=== PATIENT | male | born 1945 | race Caucasian/White ===

== ENCOUNTER 2024-03-15 13:00 | Inpatient (IN) | payer MEDICARE ==
[2024-03-15 14:08] LABS: ALT 16 U/L (4-49); AST 18 U/L (17-59); African American GFR (CKD) 4 (>60 ml/min/1.73 sqM); Albumin 3.6 g/dL (3.5-5.0); Alkaline Phosphatase 97 U/L (38-126); Anion Gap 20 mmol/L; Calcium 9.7 mg/dL (8.4-10.2); Carbon Dioxide 15 mmol/L (22-30); Chloride 103 mmol/L (98-107); Glucose 114 mg/dL (74-99); Magnesium 2.3 mg/dL (1.6-2.3); Non-African American GFR(CKD) 3 (>60 ml/min/1.73 sqM); Sodium 138 mmol/L (137-145); Total Bilirubin 0.7 mg/dL (0.2-1.3); Total Protein 6.2 g/dL (6.3-8.2)
[2024-03-15 14:14] LABS: Amorphous Sediment,Urine Rare /hpf; Appearance,Urine Clear (Clear); Bacteria,Urine Rare /hpf; Basophils # (A) 0.1 k/uL (0-0.2); Basophils % (A) 1 %; Bilirubin,Urine Negative (Negative); Blood,Urine Large (Negative); Color,Urine Colorless; Eosinophils # (A) 0.2 k/uL (0-0.7); Eosinophils % (A) 2 %; Glucose,Urine (UA) Negative (Negative); HCT 40.7 % (39.0-53.0); HGB 13.5 gm/dL (13.0-17.5); Ketones,Urine 1+ (Negative); Leukocyte Esterase,Urine Moderate (Negative); Lymphocytes # (A) 2.2 k/uL (1.0-4.8); Lymphocytes % (A) 22 %; MCH 30.8 pg (25.0-35.0); MCHC 33.3 g/dL (31.0-37.0); MCV 92.4 fL (80.0-100.0); Mean Platelet Volume 8.6; Monocytes # (A) 0.4 k/uL (0-1.0); Monocytes % (A) 4 %; Neutrophils # (A) 6.9 k/uL (1.3-7.7); Neutrophils % (A) 71 %; Nitrite,Urine Negative (Negative); PH, Urine 5.5 (5.0-8.0); Platelet Count 189 k/uL (150-450); Protein,Urine Negative (Negative); RBC,Urine 106 /hpf (0-5); RDW 14.7 % (11.5-15.5); Specific Gravity,Urine 1.012 (1.001-1.035); Urobilinogen,Urine <2.0 mg/dL (<2.0); WBC 9.7 k/uL (3.8-10.6); WBC,Urine 20 /hpf (0-5)
--- NOTE | 2024-03-15 14:25 | ED ---
General Adult HPI - General Chief complaint: Shortness of Breath Stated complaint: SOB, urogenital Time Seen by Provider: 03/15/24 13:30 Source: patient, EMS, RN notes reviewed, old records reviewed Mode of arrival: EMS - History of Present Illness Initial comments: This is a 78-year-old male who was sent to us from detention because he was combative and they thought maybe he was short of breath. However 20 minutes prior to the paramedics arriving they placed a Foster catheter in him and he subsequently put out 1600 cc of urine and according to EMS he has been cooperative and comfortable and without complaint. When I went interviewed the patient he had no complaints whatsoever he denied abdominal pain he denied any chest pain or difficulty breathing he denied any headache he denied having any pain at all. Patient has dementia and he is history may not be all that accurate but there is no one else with the patient's so most of the history came from EMS. There was no reported history of any fever. - Related Data Home Medications Medication Instructions Recorded Confirmed Acetaminophen Tab [Tylenol Tab] 500 mg PO Q6H PRN 03/15/24 03/15/24 Calcium Carbonate/Vitamin D3 1 tab PO DAILY 03/15/24 03/15/24 [Calcium 600 mg-Vit D3 5 mcg (200 unit)] Citalopram Hydrobromide [CeleXA] 20 mg PO DAILY 03/15/24 03/15/24 Cyanocobalamin [Vitamin B-12] 500 mcg PO DAILY 03/15/24 03/15/24 Divalproex Sodium [Depakote] 125 mg PO BID 03/15/24 03/15/24 Folic Acid 0.8 mg PO DAILY 03/15/24 03/15/24 Ketotifen 0.025% Ophth Soln 1 drop BOTH EYES BID 03/15/24 03/15/24 [Zaditor] Levofloxacin [Levaquin] 750 mg PO DAILY 03/15/24 03/15/24 Loratadine 10 mg PO DAILY 03/15/24 03/15/24 Magnesium Hydroxide [Milk of 2,400 mg PO DIRECTED PRN 03/15/24 03/15/24 Magnesia] Melatonin 5 mg PO HS 03/15/24 03/15/24 Metoprolol Succinate (ER) [Toprol 25 mg PO DAILY 03/15/24 03/15/24 Xl] Multivitamins, Thera [Multivitamin 1 tab PO DAILY 03/15/24 03/15/24 (formulary)] Pantoprazole [Protonix] 40 mg PO DAILY 03/15/24 03/15/24 Promethazine HCl 12.5 mg PO Q6H PRN 03/15/24 03/15/24 Sodium Chloride 0.9% Irrigatio 1 dose IRRIGATION Q12H 03/15/24 03/15/24 [Saline 0.9% Irrigation Bottle] Tamsulosin [Flomax] 0.4 mg PO HS 03/15/24 03/15/24 busPIRone HCl [Buspar] 10 mg PO BID 03/15/24 03/15/24 lisinopriL [Zestril] 20 mg PO DAILY 03/15/24 03/15/24 metFORMIN HCL [metFORMIN HCL ER] 750 mg PO DAILY 03/15/24 03/15/24 predniSONE 50 mg PO DAILY 03/15/24 03/15/24 Allergies Allergy/AdvReac Type Severity Reaction Status Date / Time No Known Allergies Allergy Verified 03/15/24 14:47 Review of Systems ROS Statement: Those systems with pertinent positive or pertinent negative responses have been documented in the HPI. ROS Other: All systems not noted in ROS Statement are negative. Past Medical History Smoking Status: Current every day smoker, Former smoker Past Alcohol Use History: Rare Past Drug Use History: None Reported General Exam - General Exam Comments Initial Comments: GENERAL: Patient is well-developed and well-nourished. Patient is nontoxic and well- hydrated and is in no acute distress. ENT: Neck is soft and supple. No significant lymphadenopathy is noted. Oropharynx is clear. Moist mucous membranes. Neck has full range of motion without eliciting any pain. EYES: The sclera were anicteric and conjunctiva were pink and moist. Extraocular movements were intact and pupils were equal round and reactive to light. Eyelids were unremarkable. PULMONARY: Unlabored respirations. Good breath sounds bilaterally. No audible rales rhonchi or wheezing was noted. CARDIOVASCULAR: There is a regular rate and rhythm without any murmurs gallops or rubs. ABDOMEN: Soft and nontender with normal bowel sounds. SKIN: Skin is clear with no lesions or rashes and otherwise unremarkable. NEUROLOGIC: Patient is alert and oriented x 2. Cranial nerves II through XII are grossly intact. Motor and sensory are also intact. Normal speech, volume and content. Symmetrical smile. MUSCULOSKELETAL: Normal extremities with adequate strength and full range of motion. LYMPHATICS: No significant lymphadenopathy is noted PSYCHIATRIC: Normal psychiatric evaluation. Course Vital Signs 03/15/24 03/15/24 03/15/24 13:21 13:27 13:30 Temperature 97.9 F Pulse Rate 107 H Respiratory 20 Rate Blood Pressure 155/116 O2 Sat by Pulse 97 96 96 Oximetry 03/15/24 03/15/24 03/15/24 13:32 13:40 13:50 Temperature Pulse Rate Respiratory Rate Blood Pressure 148/106 148/106 O2 Sat by Pulse 94 L 73 L Oximetry 03/15/24 03/15/24 03/15/24 14:00 14:05 14:10 Temperature Pulse Rate Respiratory 20 Rate Blood Pressure 145/109 O2 Sat by Pulse 94 L 72 L Oximetry 03/15/24 03/15/24 03/15/24 14:20 15:00 15:10 Temperature Pulse Rate Respiratory Rate Blood Pressure 145/109 162/120 O2 Sat by Pulse 81 L Oximetry 03/15/24 03/15/24 15:20 15:30 Temperature Pulse Rate 105 H 102 H Respiratory 11 L 12 Rate Blood Pressure O2 Sat by Pulse 96 95 Oximetry Medical Decision Making - Medical Decision Making Was pt. sent in by a medical professional or institution (, [facility], BOILERS INSPECTOR, urgent care, hospital, or detention...) When possible be specific @ -No Did you speak to anyone other than the patient for history (EMS, parent, family, police, friend...)? What history was obtained from this source @ -No Did you review nursing and triage notes (agree or disagree)? Why? @ -I reviewed and agree with nursing and triage notes Were old charts reviewed (outside hosp., previous admission, EMS record, old EKG, old radiological studies, urgent care reports/EKG's, detention records)? Report findings @ -No old charts were reviewed Differential Diagnosis? @ -Differential Altered Mental Status: Hypoglycemia, DKA, hypercapnia, ETOH, overdose, CO poisoning, trauma, myxedema coma, HTN encephalopathy, infection, encephalitis, psychosis, intercranial hemorrhage, hepatic encephalopathy, meningitis, CVA, this is not meant to be an all-inclusive list EKG interpreted by me (3pts min.). @ -As above X-rays interpreted by me (1pt min.). @ -None done CT interpreted by me (1pt min.). @ -None done U/S interpreted by me (1pt. min.). @ -None done What testing was considered but not performed or refused? (CT, X-rays, U/S, labs)? Why? @ -None What meds were considered but not given or refused? Why? @ -None Did you discuss the management of the patient with other professionals ( professionals i.e. , PA, BOILERS INSPECTOR, lab, RT, psych nurse, socially responsible investment adviser, nick setter, teacher, records officer, high risk case manager)? Give summary @ -I spoke with Dr. Pennington he agreed to admit the patient Was smoking cessation discussed for >3mins.? @ -No Was critical care preformed (if so, how long)? @ -35 minutes Were there social determinants of health that impacted care today? How? (Homelessness, low income, unemployed, alcoholism, drug addiction, transportation, low edu. Level, literacy, decrease access to med. care, senior care, rehab)? @ -No Was there de-escalation of care discussed even if they declined (Discuss DNR or withdrawal of care, Hospice)? DNR status @ -No What co-morbidities impacted this encounter? (DM, HTN, Smoking, COPD, CAD, Cancer, CVA, ARF, Chemo, Hep., AIDS, mental health diagnosis, sleep apnea, morbid obesity)? @ -None Was patient admitted / discharged? Hospital course, mention meds given and route, prescriptions, significant lab abnormalities, going to OR and other pertinent info. @ -Patient was given sodium bicarb calcium chloride D50 insulin and Lokelma. Patient will be admitted to Dr. Mcknight nephrology will be consulted. Foster catheter was left in place and it continued to drain. Undiagnosed new problem with uncertain prognosis? @ -No Drug Therapy requiring intensive monitoring for toxicity (Heparin, Nitro, Insulin, Cardizem)? @ -No Were any procedures done? @ -No Diagnosis/symptom? @ -Urinary retention Acute, or Chronic, or Acute on Chronic? @ -Default Uncomplicated (without systemic symptoms) or Complicated (systemic symptoms)? @ -Cute complicated Side effects of treatment? @ -No Exacerbation, Progression, or Severe Exacerbation? @ -No Poses a threat to life or bodily function? How? (Chest pain, [place], [place], pneumonia, PE, COPD, DKA, ARF, appy, cholecystitis, CVA, Diverticulitis, Homicidal, Suicidal, threat to staff... and all critical care pts) @ -Yes there can be significant kidney damage and electrolyte abnormalities Diagnosis/symptom? @ -Hyperkalemia Acute, or Chronic, or Acute on Chronic? @ -Acute Uncomplicated (without systemic symptoms) or Complicated (systemic symptoms)? @ -Complicated Side effects of treatment? @ -None Exacerbation, Progression, or Severe Exacerbation] @ -No Poses a threat to life or bodily function? @ -This can cause arrhythmias and Diagnosis/symptom? @ -Acute renal failure Acute, or Chronic, or Acute on Chronic? @ -Default Uncomplicated (without systemic symptoms) or Complicated (systemic symptoms)? @ -Acute complicated Side effects of treatment? @ -None Exacerbation, Progression, or Severe Exacerbation] @ -No Poses a threat to life or bodily function? @ -Yes this can lead to arrhythmias secondary to electrolyte abnormalities - Lab Data Result diagrams: 03/15/24 13:43 03/15/24 13:43 Lab Results 03/15/24 03/15/24 03/15/24 Range/Units 13:43 13:43 13:43 WBC 9.7 (3.8-10.6) k/uL RBC 4.40 (4.30-5.90) m/uL Hgb 13.5 (13.0-17.5) gm/dL Hct 40.7 (39.0-53.0) % MCV 92.4 (80.0-100.0) fL MCH 30.8 (25.0-35.0) pg MCHC 33.3 (31.0-37.0) g/dL RDW 14.7 (11.5-15.5) % Plt Count 189 (150-450) k/uL MPV 8.6 Neutrophils % 71 % Lymphocytes % 22 % Monocytes % 4 % Eosinophils % 2 % Basophils % 1 % Neutrophils # 6.9 (1.3-7.7) k/uL Lymphocytes # 2.2 (1.0-4.8) k/uL Monocytes # 0.4 (0-1.0) k/uL Eosinophils # 0.2 (0-0.7) k/uL Basophils # 0.1 (0-0.2) k/uL Sodium 138 (137-145) mmol/L Potassium 6.2 H* (3.5-5.1) mmol/L Chloride 103 (98-107) mmol/L Carbon Dioxide 15 L (22-30) mmol/L Anion Gap 20 mmol/L BUN 169 H* (9-20) mg/dL Creatinine 12.27 H* (0.66-1.25) mg/dL Est GFR (CKD-EPI)AfAm 4 (>60 ml/min/1.73 sqM) Est GFR (CKD-EPI)NonAf 3 (>60 ml/min/1.73 sqM) Glucose 114 H (74-99) mg/dL Calcium 9.7 (8.4-10.2) mg/dL Magnesium 2.3 (1.6-2.3) mg/dL Total Bilirubin 0.7 (0.2-1.3) mg/dL AST 18 (17-59) U/L ALT 16 (4-49) U/L Alkaline Phosphatase 97 (38-126) U/L Total Protein 6.2 L (6.3-8.2) g/dL Albumin 3.6 (3.5-5.0) g/dL Urine Color Colorless Urine Appearance Clear (Clear) Urine pH 5.5 (5.0-8.0) Ur Specific [place] 1.012 (1.001-1.035) Urine Protein Negative (Negative) Urine Glucose (UA) Negative (Negative) Urine Ketones 1+ H (Negative) Urine Blood Large H (Negative) Urine Nitrite Negative (Negative) Urine Bilirubin Negative (Negative) Urine Urobilinogen <2.0 (<2.0) mg/dL Ur Leukocyte Esterase Moderate H (Negative) Urine RBC 106 H (0-5) /hpf Urine WBC 20 H (0-5) /hpf Amorphous Sediment Rare H (None) /hpf Urine Bacteria Rare H (None) /hpf Disposition Clinical Impression: Acute renal failure, Hyperkalemia, Urinary retention Disposition: ADMITTED IP TO THIS HOSP Referrals: Jenn Clark DO [Primary Care Provider] - 1-2 days Time of Disposition: 15:56
[2024-03-15 14:33] LABS: Potassium 6.2 mmol/L (3.5-5.1)
[2024-03-15 14:35] LABS: Blood Urea Nitrogen 169 mg/dL (9-20)
[2024-03-15] MEDS: DEXTROSE 50% SYRINGE 50 ML IVP STA (16:21)
[2024-03-15] MEDS: SODIUM BICARB 8.4% 50 ML SYR (1 MEQ/ML) IV STA (16:21)
[2024-03-15] MEDS: CALCIUM CHLORIDE 100 MG/ML 10 ML SYRINGE IVP STA (16:21)
[2024-03-15] MEDS: SODIUM ZIRCONIUM CYCLOSILICATE 10 GM PACKET PO ONE (16:22)
[2024-03-15] MEDS: INSULIN REGULAR 100 UNIT/ML VIAL (IV) IV ONE (16:22)
[2024-03-15] MEDS: LORazepam 2 MG/ML INJ IV STA (16:44)
[2024-03-15] MEDS ORDERED: ACETAMINOPHEN TAB 500 MG TAB PO PRN (19:40)
--- NOTE | 2024-03-15 19:48 | P.HPIM ---
History of Present Illness This is a pleasant 78 years old male with past medical history of dementia who was sent from [facility] for being combative and little short of breath. Patient was found also to have acute urinary retention of 1600 mL/h. There was suspicion even more. Patient is poor historian given his advanced dementia. He is afebrile but mildly tachycardic Labs was very significant for elevated creatinine 12.2 and potassium 6.2. Rest of labs including CBC and LFT were unremarkable On admission lisinopril 20 mg and metformin 500 mg were held. Patient started also on normal saline 75 mL/h Patient was taking prednisone 50 mg at [facility] for unknown reason, we going to lower his dose to 20 mg with close monitoring. Review of Systems Review of systems CONSTITUTIONAL: No fever, no malaise, no fatigue. HEENT: No recent visual problems or hearing problems. Denied any sore throat. CARDIOVASCULAR: No orthopnea, PND, no palpitations, no syncope. PULMONARY: No shortness of breath, no cough, no hemoptysis. GASTROINTESTINAL: No diarrhea, no nausea, no vomiting, no abdominal pain. Normoactive bowel sounds. NEUROLOGICAL: No headaches, no weakness, no numbness. HEMATOLOGICAL: Denies any bleeding or petechiae. GENITOURINARY: Denies any burning micturition, frequency, or urgency. MUSCULOSKELETAL/RHEUMATOLOGICAL: Denies any joint pain, swelling, or any muscle pain. ENDOCRINE: Denies any polyuria or polydipsia. Past Medical History Smoking Status: Current every day smoker, Former smoker Past Alcohol Use History: Rare Past Drug Use History: None Reported Medications and Allergies Home Medications Medication Instructions Recorded Confirmed Type Acetaminophen Tab [Tylenol Tab] 500 mg PO Q6H PRN 03/15/24 03/15/24 History Calcium Carbonate/Vitamin D3 1 tab PO DAILY 03/15/24 03/15/24 History [Calcium 600 mg-Vit D3 5 mcg (200 unit)] Citalopram Hydrobromide [CeleXA] 20 mg PO DAILY 03/15/24 03/15/24 History Cyanocobalamin [Vitamin B-12] 500 mcg PO DAILY 03/15/24 03/15/24 History Divalproex Sodium [Depakote] 125 mg PO BID 03/15/24 03/15/24 History Folic Acid 0.8 mg PO DAILY 03/15/24 03/15/24 History Ketotifen 0.025% Ophth Soln 1 drop BOTH EYES BID 03/15/24 03/15/24 History [Zaditor] Levofloxacin [Levaquin] 750 mg PO DAILY 03/15/24 03/15/24 History Loratadine 10 mg PO DAILY 03/15/24 03/15/24 History Magnesium Hydroxide [Milk of 2,400 mg PO DIRECTED PRN 03/15/24 03/15/24 History Magnesia] Melatonin 5 mg PO HS 03/15/24 03/15/24 History Metoprolol Succinate (ER) [Toprol 25 mg PO DAILY 03/15/24 03/15/24 History Xl] Multivitamins, Thera [Multivitamin 1 tab PO DAILY 03/15/24 03/15/24 History (formulary)] Pantoprazole [Protonix] 40 mg PO DAILY 03/15/24 03/15/24 History Promethazine HCl 12.5 mg PO Q6H PRN 03/15/24 03/15/24 History Sodium Chloride 0.9% Irrigatio 1 dose IRRIGATION Q12H 03/15/24 03/15/24 History [Saline 0.9% Irrigation Bottle] Tamsulosin [Flomax] 0.4 mg PO HS 03/15/24 03/15/24 History busPIRone HCl [Buspar] 10 mg PO BID 03/15/24 03/15/24 History lisinopriL [Zestril] 20 mg PO DAILY 03/15/24 03/15/24 History metFORMIN HCL [metFORMIN HCL ER] 750 mg PO DAILY 03/15/24 03/15/24 History predniSONE 50 mg PO DAILY 03/15/24 03/15/24 History Allergies Allergy/AdvReac Type Severity Reaction Status Date / Time No Known Allergies Allergy Verified 03/15/24 14:47 Physical Exam Vitals: Vital Signs Temp Pulse Resp BP Pulse Ox 03/15/24 15:30 102 H 12 95 03/15/24 15:20 105 H 11 L 96 03/15/24 15:10 162/120 03/15/24 15:00 145/109 03/15/24 14:20 81 L 03/15/24 14:10 145/109 72 L 03/15/24 14:05 20 03/15/24 14:00 94 L 03/15/24 13:50 73 L 03/15/24 13:40 148/106 94 L 03/15/24 13:32 148/106 03/15/24 13:30 155/116 96 03/15/24 13:27 96 03/15/24 13:21 97.9 F 107 H 20 97 Intake and Output 03/15/24 03/15/24 03/15/24 06:59 14:59 22:59 Other: Weight 86.183 kg -GENERAL: The patient is alert and oriented x he is pleasantly confused, not in any acute distress. Well developed, well nourished. HEENT: Pupils are round and equally reacting to light. EOMI. No scleral icterus. No conjunctival pallor. Normocephalic, atraumatic. No pharyngeal erythema. No thyromegaly. CARDIOVASCULAR: S1 and S2 present. No murmurs, rubs, or gallops. PULMONARY: Chest is clear to auscultation, no wheezing , no crackles. ABDOMEN: Soft, nontender, nondistended, normoactive bowel sounds. No palpable organomegaly. MUSCULOSKELETAL: No joint swelling or deformity. EXTREMITIES: No cyanosis, clubbing, or pedal edema. NEUROLOGICAL: Gross neurological examination did not reveal any focal deficits. SKIN: No rashes. no petechiae. Results CBC & Chem 7: 03/15/24 13:43 03/15/24 13:43 Labs: Abnormal Lab Results - Last 24 Hours (Table) 03/15/24 03/15/24 Range/Units 13:43 13:43 Potassium 6.2 H* (3.5-5.1) mmol/L Carbon Dioxide 15 L (22-30) mmol/L BUN 169 H* (9-20) mg/dL Creatinine 12.27 H* (0.66-1.25) mg/dL Glucose 114 H (74-99) mg/dL Total Protein 6.2 L (6.3-8.2) g/dL Urine Ketones 1+ H (Negative) Urine Blood Large H (Negative) Ur Leukocyte Esterase Moderate H (Negative) Urine RBC 106 H (0-5) /hpf Urine WBC 20 H (0-5) /hpf Amorphous Sediment Rare H (None) /hpf Urine Bacteria Rare H (None) /hpf Assessment and Plan Assessment: Acute kidney injury with hyperkalemia secondary to obstructive uropathy Acute urinary retention status post Foster catheter Dementia, advanced Plan: Foster catheter Increase Flomax to twice daily Nephrology team consult Start normal sinus 75 mL/h Lower prednisone to 20 mg Continue with antihypertensive medication Labs and medication were reviewed.. Continue same treatment. Continue with symptomatic treatment. Resume home medication. Monitor labs and vitals. DVT a nd GI prophylaxis. Further recommendations as per clinical course of the patient DVT prophylaxis: Subcutaneous heparin GI Prophylaxis: Protonix Prognosis is guarded
[2024-03-15] MEDS: SODIUM CHLORIDE 0.9% 1,000 ML IV SCH (19:53)
[2024-03-15] MEDS: TAMSULOSIN 0.4 MG CAP.ER.24H PO SCH (21:31)
[2024-03-15] MEDS: MELATONIN 5 MG TABLET PO SCH (21:31)
[2024-03-15] MEDS: busPIRone HCl 10 MG TAB PO SCH (21:31)
[2024-03-15] MEDS: KETOTIFEN 0.025% OPHTH DROPS 5 ML BTL BOTH EYES SCH (21:31)
[2024-03-16 00:47] LABS: Glucose,Whole Blood 115 mg/dL (70-110)
[2024-03-16 06:06] LABS: Glucose,Whole Blood 120 mg/dL (70-110)
[2024-03-16 07:58] LABS: Basophils % (A) 0 %; Eosinophils # (A) 0.2 k/uL (0-0.7); Eosinophils % (A) 2 %; HCT 39.9 % (39.0-53.0); Lymphocytes # (A) 2.2 k/uL (1.0-4.8); Lymphocytes % (A) 25 %; MCH 30.5 pg (25.0-35.0); MCHC 32.7 g/dL (31.0-37.0); MCV 93.3 fL (80.0-100.0); Mean Platelet Volume 8.5; Monocytes # (A) 0.4 k/uL (0-1.0); Monocytes % (A) 4 %; Neutrophils # (A) 5.9 k/uL (1.3-7.7); Neutrophils % (A) 67 %; Platelet Count 204 k/uL (150-450); RBC 4.28 m/uL (4.30-5.90); RDW 14.7 % (11.5-15.5); WBC 8.8 k/uL (3.8-10.6)
[2024-03-16 08:05] LABS: African American GFR (CKD) 11 (>60 ml/min/1.73 sqM); Anion Gap 14 mmol/L; Blood Urea Nitrogen 89 mg/dL (9-20); Calcium 10.2 mg/dL (8.4-10.2); Carbon Dioxide 20 mmol/L (22-30); Chloride 114 mmol/L (98-107); Glucose 128 mg/dL (74-99); Non-African American GFR(CKD) 10 (>60 ml/min/1.73 sqM); Potassium 4.5 mmol/L (3.5-5.1); Sodium 148 mmol/L (137-145)
[2024-03-16] MEDS: CITALOPRAM HYDROBROMIDE 20 MG TAB PO SCH (08:19)
[2024-03-16] MEDS: PANTOPRAZOLE 40 MG TABLET PO SCH (08:19)
[2024-03-16] MEDS: METOPROLOL SUCCINATE (ER) 25 MG TAB.ER.24H PO SCH (08:19)
[2024-03-16] MEDS: predniSONE 20 MG TAB PO SCH (08:19)
[2024-03-16 11:44] LABS: Glucose,Whole Blood 190 mg/dL (70-110)
--- NOTE | 2024-03-16 12:24 | P.PN ---
Subjective This is a pleasant 78 years old male with past medical history of dementia who was sent from residential for being combative and little short of breath. Patient was found also to have acute urinary retention of 1600 mL/h. There was suspicion even more. Patient is poor historian given his advanced dementia. He is afebrile but mildly tachycardic Labs was very significant for elevated creatinine 12.2 and potassium 6.2. Rest of labs including CBC and LFT were unremarkable On admission lisinopril 20 mg and metformin 500 mg were held. Patient started also on normal saline 75 mL/h Patient was taking prednisone 50 mg at residential for unknown reason, we going to lower his dose to 20 mg with close monitoring. 03/16 Patient looks better His creatinine came down to 5.1 and potassium normal 4.5 Sodium 148 He remains on normal saline 75 mL/h Foster catheter in place with yellow urine Objective - Vital Signs Vital signs: Vital Signs Temp 97.5 F L 03/16/24 08:00 Pulse 101 H 03/16/24 12:00 Resp 18 03/16/24 12:00 BP 143/96 03/16/24 12:00 Pulse Ox 95 03/16/24 12:00 FiO2 Intake & Output 03/15/24 03/16/24 03/16/24 18:59 06:59 18:59 Output Total 8900 1150 Balance -8900 -1150 Weight 86.183 kg 86.183 kg Output: Urine 8900 1150 Uretheral (Foster) 2800 Other: Voiding Method Indwelling Catheter Indwelling Catheter - Exam -GENERAL: The patient is awake but confused pleasantly at baseline, not in any acute distress. Well developed, well nourished. HEENT: Pupils are round and equally reacting to light. EOMI. No scleral icterus. No conjunctival pallor. Normocephalic, atraumatic. No pharyngeal erythema. No thyromegaly. CARDIOVASCULAR: S1 and S2 present. No murmurs, rubs, or gallops. PULMONARY: Chest is clear to auscultation, no wheezing , no crackles. ABDOMEN: Soft, nontender, nondistended, normoactive bowel sounds. No palpable organomegaly. MUSCULOSKELETAL: No joint swelling or deformity. EXTREMITIES: No cyanosis, clubbing, or pedal edema. NEUROLOGICAL: Gross neurological examination did not reveal any focal deficits. SKIN: No rashes. no petechiae. - Labs CBC & Chem 7: 03/16/24 07:19 03/16/24 07:19 Labs: Abnormal Lab Results - Last 24 Hours (Table) 03/15/24 03/15/24 03/16/24 Range/Units 13:43 13:43 00:46 RBC (4.30-5.90) m/uL Sodium (137-145) mmol/L Potassium 6.2 H* (3.5-5.1) mmol/L Chloride (98-107) mmol/L Carbon Dioxide 15 L (22-30) mmol/L BUN 169 H* (9-20) mg/dL Creatinine 12.27 H* (0.66-1.25) mg/dL Glucose 114 H (74-99) mg/dL POC Glucose (mg/dL) 115 H (70-110) mg/dL Total Protein 6.2 L (6.3-8.2) g/dL Urine Ketones 1+ H (Negative) Urine Blood Large H (Negative) Ur Leukocyte Esterase Moderate H (Negative) Urine RBC 106 H (0-5) /hpf Urine WBC 20 H (0-5) /hpf Amorphous Sediment Rare H (None) /hpf Urine Bacteria Rare H (None) /hpf 03/16/24 03/16/24 03/16/24 Range/Units 06:04 07:19 07:19 RBC 4.28 L (4.30-5.90) m/uL Sodium 148 H (137-145) mmol/L Potassium (3.5-5.1) mmol/L Chloride 114 H (98-107) mmol/L Carbon Dioxide 20 L (22-30) mmol/L BUN 89 H (9-20) mg/dL Creatinine 5.16 H (0.66-1.25) mg/dL Glucose 128 H (74-99) mg/dL POC Glucose (mg/dL) 120 H (70-110) mg/dL Total Protein (6.3-8.2) g/dL Urine Ketones (Negative) Urine Blood (Negative) Ur Leukocyte Esterase (Negative) Urine RBC (0-5) /hpf Urine WBC (0-5) /hpf Amorphous Sediment (None) /hpf Urine Bacteria (None) /hpf 03/16/24 Range/Units 11:42 RBC (4.30-5.90) m/uL Sodium (137-145) mmol/L Potassium (3.5-5.1) mmol/L Chloride (98-107) mmol/L Carbon Dioxide (22-30) mmol/L BUN (9-20) mg/dL Creatinine (0.66-1.25) mg/dL Glucose (74-99) mg/dL POC Glucose (mg/dL) 190 H (70-110) mg/dL Total Protein (6.3-8.2) g/dL Urine Ketones (Negative) Urine Blood (Negative) Ur Leukocyte Esterase (Negative) Urine RBC (0-5) /hpf Urine WBC (0-5) /hpf Amorphous Sediment (None) /hpf Urine Bacteria (None) /hpf Assessment and Plan Assessment: Acute kidney injury with hyperkalemia secondary to obstructive uropathy Acute urinary retention status post Foster catheter Dementia, advanced Plan: Foster catheter Increase Flomax to twice daily Nephrology team consult Start normal sinus 75 mL/h Lower prednisone to 20 mg Continue with antihypertensive medication Labs and medication were reviewed.. Continue same treatment. Continue with symptomatic treatment. Resume home medication. Monitor labs and vitals. DVT and GI prophylaxis. Further recommendations as per clinical course of the [facility] ent DVT prophylaxis: Subcutaneous heparin GI Prophylaxis: Protonix Prognosis is guarded
--- NOTE | 2024-03-16 12:50 | P.NPCON ---
History of Present Illness - Reason for Consult acute renal failure - History of Present Illness patient is a 78-year-old male with history of dementia who resides at a [facility] and was sent into the hospital for altered mentation and shortness of breath. Patient was noticed to have significant urine retention of 1600 mL of urine and Foster catheter was placed. Serum creatinine was 12.2 on admission and has decreased to 5.1 today. 24 hour urine output documented at 8.9 L. Serum sodium today was 148. Past Medical History Past Medical History: CVA/TIA, Dementia, Diabetes Mellitus History of Any Multi-Drug Resistant Organisms: None Reported Additional Past Surgical History / Comment(s): surgery as a child Smoking Status: Current every day smoker, Former smoker Past Alcohol Use History: Rare Past Drug Use History: None Reported Medications and Allergies Home Medications Medication Instructions Recorded Confirmed Type Acetaminophen Tab [Tylenol Tab] 500 mg PO Q6H PRN 03/15/24 03/15/24 History Calcium Carbonate/Vitamin D3 1 tab PO DAILY 03/15/24 03/15/24 History [Calcium 600 mg-Vit D3 5 mcg (200 unit)] Citalopram Hydrobromide [CeleXA] 20 mg PO DAILY 03/15/24 03/15/24 History Cyanocobalamin [Vitamin B-12] 500 mcg PO DAILY 03/15/24 03/15/24 History Divalproex Sodium [Depakote] 125 mg PO BID 03/15/24 03/15/24 History Folic Acid 0.8 mg PO DAILY 03/15/24 03/15/24 History Ketotifen 0.025% Ophth Soln 1 drop BOTH EYES BID 03/15/24 03/15/24 History [Zaditor] Levofloxacin [Levaquin] 750 mg PO DAILY 03/15/24 03/15/24 History Loratadine 10 mg PO DAILY 03/15/24 03/15/24 History Magnesium Hydroxide [Milk of 2,400 mg PO DIRECTED PRN 03/15/24 03/15/24 History Magnesia] Melatonin 5 mg PO HS 03/15/24 03/15/24 History Metoprolol Succinate (ER) [Toprol 25 mg PO DAILY 03/15/24 03/15/24 History Xl] Multivitamins, Thera [Multivitamin 1 tab PO DAILY 03/15/24 03/15/24 History (formulary)] Pantoprazole [Protonix] 40 mg PO DAILY 03/15/24 03/15/24 History Promethazine HCl 12.5 mg PO Q6H PRN 03/15/24 03/15/24 History Sodium Chloride 0.9% Irrigatio 1 dose IRRIGATION Q12H 03/15/24 03/15/24 History [Saline 0.9% Irrigation Bottle] Tamsulosin [Flomax] 0.4 mg PO HS 03/15/24 03/15/24 History busPIRone HCl [Buspar] 10 mg PO BID 03/15/24 03/15/24 History lisinopriL [Zestril] 20 mg PO DAILY 03/15/24 03/15/24 History metFORMIN HCL [metFORMIN HCL ER] 750 mg PO DAILY 03/15/24 03/15/24 History predniSONE 50 mg PO DAILY 03/15/24 03/15/24 History Allergies Allergy/AdvReac Type Severity Reaction Status Date / Time No Known Allergies Allergy Verified 03/15/24 14:47 Physical Exam Vitals: Vital Signs Temp Pulse Pulse Resp BP BP Pulse Ox 03/16/24 12:00 101 H 18 143/96 95 03/16/24 08:00 97.5 F L 101 H 18 146/93 96 03/16/24 04:00 98.1 F 95 19 151/84 96 03/16/24 00:40 97.9 F 88 19 142/94 93 L 03/15/24 23:40 97.5 F L 112 H 18 143/90 94 L 03/15/24 23:00 118 H 19 133/94 94 L 03/15/24 22:00 108 H 20 137/88 94 L 03/15/24 21:00 113 H 20 120/94 95 03/15/24 20:00 111 H 20 138/86 95 03/15/24 19:00 105 H 19 114/93 03/15/24 18:00 98 19 137/105 93 L 03/15/24 17:00 112 H 18 147/96 92 L 03/15/24 16:00 103 H 19 162/120 96 03/15/24 15:30 102 H 12 95 03/15/24 15:20 105 H 11 L 96 03/15/24 15:10 162/120 03/15/24 15:00 145/109 03/15/24 14:20 81 L 03/15/24 14:10 145/109 72 L 03/15/24 14:05 20 03/15/24 14:00 94 L 03/15/24 13:50 73 L 03/15/24 13:40 148/106 94 L 03/15/24 13:32 148/106 03/15/24 13:30 155/116 96 03/15/24 13:27 96 03/15/24 13:21 97.9 F 107 H 20 97 Intake and Output 03/15/24 03/16/24 03/16/24 22:59 06:59 14:59 Output Total 7600 1300 1150 Balance -7600 -1300 -1150 Output: Urine 7600 1300 1150 Uretheral (Foster) 2800 Other: Voiding Method Indwelling Catheter Indwelling Catheter Weight 86.183 kg patient is awake, comfortable in no acute distress. Not able to answer questions appropriately. Examination of the heart S1 and S2 Examination of the lungs bilateral breath sounds are heard Abdomen is soft nontender Examination of lower extremities shows no significant edema VETERINARIAN EPIDEMIOLOGIST exam shows patient is moving all 4 extremities. Results - Lab Results Most recent lab results Calcium 10.2 mg/dL (8.4-10.2) 03/16/24 07:19 Magnesium 2.3 mg/dL (1.6-2.3) 03/15/24 13:43 03/16/24 07:19 03/16/24 07:19 Assessment and Plan Assessment: 1. Acute kidney injury mostly obstructive uropathy, currently improving with Foster catheter placement. 2800 ml of urine was obtained on Foster catheter placement. Need to monitor for post obstructive diuresis and volume depletion. 2. Hypernatremia associated with free water deficit, IV fluids will be adjusted 3. History of dementia 4. History of hypertension, KURT inhibitor's on hold. Plan: change IV fluids to half-normal saline Check ultrasound of the kidneys repeat labs in a.m. Continue to hold KURT inhibitor's Monitor for postobstructive diuresis Thank you for the consultation. We will continue to follow the patient with you during his hospitalization
--- NOTE | 2024-03-16 14:06 | US ---
EXAMINATION TYPE: US kidneys/renal and bladder DATE OF EXAM: 03/16/2024 COMPARISON: NONE CLINICAL INDICATION: Male, 78 years old with history of brandyn; TECHNIQUE: Grayscale imaging of the bilateral kidneys and urinary bladder: FINDINGS: EXAM MEASUREMENTS: Right Kidney: 10.0x5.4x5.9 cm Left Kidney: 12.4x5.8x4.4 cm limited exam due to pt being unable to roll or hold breath Right Kidney: Mild Diana seen, anechoic area seen medial: 1.0x1.0x1.1cm Left Kidney: Multiple anechoic areas seen, Largest:2.6x2.5x1.6cm Bladder: Irregular wall, Foster in place Bilateral Jets seen: No IMPRESSION: 1. No evidence for obstructive uropathy. 2. Foster catheter in place with urine in the bladder correlate for function Foster catheter. Trabecul ated bladder matthew possibly due to chronic bladder outlet obstruction. [facility], , 03/16/2024 2:04 PM
[2024-03-16] MEDS: SODIUM CHLORIDE 0.45% 1,000 ML IV SCH (14:30)
[2024-03-16 16:41] LABS: Glucose,Whole Blood 181 mg/dL (70-110)
[2024-03-16 18:02] LABS: Appearance,Urine Clear (Clear); Bilirubin,Urine Negative (Negative); Blood,Urine Moderate (Negative); Color,Urine Colorless; Glucose,Urine (UA) Negative (Negative); Ketones,Urine 2+ (Negative); Leukocyte Esterase,Urine Small (Negative); Mucus,Urine Rare /hpf; Nitrite,Urine Negative (Negative); PH, Urine 5.5 (5.0-8.0); Protein,Urine Negative (Negative); RBC,Urine 3 /hpf (0-5); Specific Gravity,Urine 1.016 (1.001-1.035); Urobilinogen,Urine <2.0 mg/dL (<2.0); WBC,Urine 7 /hpf (0-5)
[2024-03-16] MEDS ORDERED: TAMSULOSIN 0.4 MG CAP.ER.24H PO SCH (18:30)
[2024-03-16 20:29] LABS: Glucose,Whole Blood 274 mg/dL (70-110)
[2024-03-16] MEDS ORDERED: DEXTROSE 50% SYRINGE 50 ML IVP PRN ×2 (21:52)
[2024-03-17 06:17] LABS: Glucose,Whole Blood 139 mg/dL (70-110)
[2024-03-17] MEDS: INSULIN ASPART (NovoLOG) 100 UNIT/ML VIAL SQ SCH (06:40)
[2024-03-17 10:54] LABS: African American GFR (CKD) 38 (>60 ml/min/1.73 sqM); Anion Gap 6 mmol/L; Blood Urea Nitrogen 44 mg/dL (9-20); Calcium 9.3 mg/dL (8.4-10.2); Carbon Dioxide 26 mmol/L (22-30); Chloride 115 mmol/L (98-107); Glucose 195 mg/dL (74-99); Non-African American GFR(CKD) 33 (>60 ml/min/1.73 sqM); Potassium 3.6 mmol/L (3.5-5.1); Sodium 147 mmol/L (137-145)
[2024-03-17 11:21] LABS: Glucose,Whole Blood 243 mg/dL (70-110)
[2024-03-17 16:04] LABS: Glucose,Whole Blood 152 mg/dL (70-110)
--- NOTE | 2024-03-17 16:33 | P.PN ---
Subjective Patient is seen for follow-up for acute kidney injury, mostly obstructive uropathy. Renal function has improved with serum creatinine down to 1.9 from 12.2 on admission. Patient remains on IV fluids. 24-hour urine output at 3.0 L No significant complaints today. Objective - Vital Signs Vital signs: Vital Signs Temp 98.0 F 03/17/24 09:00 Pulse 75 03/17/24 14:00 Resp 16 03/17/24 14:00 BP 120/78 03/17/24 12:00 Pulse Ox 95 03/17/24 12:00 FiO2 Intake & Output 03/16/24 03/17/24 03/17/24 18:59 06:59 18:59 Intake Total 473 Output Total 1150 1900 Balance -1150 -1900 473 Weight 86.183 kg 86.1 kg 86.1 kg Intake: Oral 473 Output: Urine 1150 1900 Other: Voiding Method Indwelling Catheter Indwelling Catheter Indwelling Catheter - Exam patient is awake, comfortable in no acute distress. Not able to answer questions appropriately. Examination of the heart S1 and S2 Examination of the lungs bilateral breath sounds are heard Abdomen is soft nontender Examination of lower extremities shows no significant edema EMERGENCY MEDICINE PHYSICIAN ASSISTANT exam shows patient is moving all 4 extremities. - Labs CBC & Chem 7: 03/16/24 07:19 03/17/24 10:15 Labs: Abnormal Lab Results - Last 24 Hours (Table) 03/16/24 03/16/24 03/16/24 Range/Units 07:19 16:39 17:15 Sodium (137-145) mmol/L Chloride (98-107) mmol/L BUN (9-20) mg/dL Creatinine (0.66-1.25) mg/dL Glucose (74-99) mg/dL POC Glucose (mg/dL) 181 H (70-110) mg/dL Hemoglobin A1c 6.3 H (<=6.0) % Urine Ketones 2+ H (Negative) Urine Blood Moderate H (Negative) Ur Leukocyte Esterase Small H (Negative) Urine WBC 7 H (0-5) /hpf Urine Mucus Rare H (None) /hpf 03/16/24 03/17/24 03/17/24 Range/Units 20:28 06:16 10:15 Sodium 147 H (137-145) mmol/L Chloride 115 H (98-107) mmol/L BUN 44 H (9-20) mg/dL Creatinine 1.92 H (0.66-1.25) mg/dL Glucose 195 H (74-99) mg/dL POC Glucose (mg/dL) 274 H 139 H (70-110) mg/dL Hemoglobin A1c (<=6.0) % Urine Ketones (Negative) Urine Blood (Negative) Ur Leukocyte Esterase (Negative) Urine WBC (0-5) /hpf Urine Mucus (None) /hpf 03/17/24 03/17/24 Range/Units 11:20 16:02 Sodium (137-145) mmol/L Chloride (98-107) mmol/L BUN (9-20) mg/dL Creatinine (0.66-1.25) mg/dL Glucose (74-99) mg/dL POC Glucose (mg/dL) 243 H 152 H (70-110) mg/dL Hemoglobin A1c (<=6.0) % Urine Ketones (Negative) Urine Blood (Negative) Ur Leukocyte Esterase (Negative) Urine WBC (0-5) /hpf Urine Mucus (None) /hpf Assessment and Plan Assessment: 1. Acute kidney injury mostly obstructive uropathy, currently improving with Foster catheter placement. 2800 ml of urine was obtained on Foster catheter placement. Need to monitor for post obstructive diuresis and volume depletion. 2. Hypernatremia associated with free water deficit, IV fluids adjusted 3. History of dementia 4. History of hypertension, KURT inhibitor's on hold. Plan: Continue half-normal saline repeat labs in a.m. Continue to hold KURT inhibitor's Monitor for postobstructive diuresis
[2024-03-17 21:21] LABS: Glucose,Whole Blood 227 mg/dL (70-110)
[2024-03-18 06:10] LABS: Glucose,Whole Blood 126 mg/dL (70-110)
[2024-03-18 11:15] LABS: African American GFR (CKD) 67 (>60 ml/min/1.73 sqM); Anion Gap 6 mmol/L; Blood Urea Nitrogen 31 mg/dL (9-20); Calcium 8.6 mg/dL (8.4-10.2); Carbon Dioxide 25 mmol/L (22-30); Chloride 111 mmol/L (98-107); Glucose 187 mg/dL (74-99); Non-African American GFR(CKD) 58 (>60 ml/min/1.73 sqM); Potassium 3.4 mmol/L (3.5-5.1); Sodium 142 mmol/L (137-145)
[2024-03-18 11:39] LABS: Glucose,Whole Blood 157 mg/dL (70-110)
--- NOTE | 2024-03-18 12:39 | P.PN ---
Subjective Patient is seen for follow-up for acute kidney injury, mostly obstructive uropathy. Renal function has improved with serum creatinine down to 1.2 from 12.2 on admission. Patient remains on IV fluids. No significant complaints today. Objective - Vital Signs Vital signs: Vital Signs Temp 98.1 F 03/18/24 08:00 Pulse 94 03/18/24 12:00 Resp 16 03/18/24 12:00 BP 131/89 03/18/24 12:00 Pulse Ox 95 03/18/24 12:00 FiO2 Intake & Output 03/17/24 03/18/24 03/18/24 18:59 06:59 18:59 Intake Total 591 Output Total 975 900 Balance -384 -900 Weight 86.1 kg 51.8 kg Intake: Oral 591 Output: Urine 975 900 Other: Voiding Method Indwelling Catheter Indwelling Catheter Indwelling Catheter - Exam patient is awake, comfortable in no acute distress. Not able to answer questions appropriately. Examination of the heart S1 and S2 Examination of the lungs bilateral breath sounds are heard Abdomen is soft nontender Examination of lower extremities shows no significant edema ERP DEVELOPER exam shows patient is moving all 4 extremities. - Labs CBC & Chem 7: 03/16/24 07:19 03/18/24 10:33 Labs: Abnormal Lab Results - Last 24 Hours (Table) 03/17/24 03/17/24 03/18/24 Range/Units 16:02 21:20 06:05 Potassium (3.5-5.1) mmol/L Chloride (98-107) mmol/L BUN (9-20) mg/dL Glucose (74-99) mg/dL POC Glucose (mg/dL) 152 H 227 H 126 H (70-110) mg/dL 03/18/24 03/18/24 Range/Units 10:33 11:37 Potassium 3.4 L (3.5-5.1) mmol/L Chloride 111 H (98-107) mmol/L BUN 31 H (9-20) mg/dL Glucose 187 H (74-99) mg/dL POC Glucose (mg/dL) 157 H (70-110) mg/dL Assessment and Plan Assessment: 1. Acute kidney injury mostly obstructive uropathy, currently improving with Foster catheter placement. 2800 ml of urine was obtained on Foster catheter placement. Serum creatinine down to 1.2 from 12.1 on initial admission. 2. Hypernatremia associated with free water deficit, IV fluids adjusted 3. History of dementia 4. History of hypertension, KURT inhibitor's on hold. Plan: Continue half-normal saline repeat labs in a.m. Continue to hold KURT inhibitor's
--- NOTE | 2024-03-18 12:48 | P.PN ---
Subjective Progress Note Date: 03/18/24 78 years old male with past medical history of dementia who was sent from [facility] for being combative and little short of breath. Patient was found also to have acute urinary retention of 1600 mL/h. There was suspicion even more. Patient is poor historian given his advanced dementia. He is afebrile but mildly tachycardic Labs was very significant for elevated creatinine 12.2 and potassium 6.2. Rest of labs including CBC and LFT were unremarkable On admission lisinopril 20 mg and metformin 500 mg were held. Patient started also on normal saline 75 mL/h Patient was taking prednisone 50 mg at custod[facility] for unknown reason, we going to lower his dose to 20 mg with close monitoring. 03/17 Patient looks better His creatinine came down to 5.1 and potassium normal 4.5 Sodium 148 He remains on normal saline 75 mL/h Foster catheter in place with yellow urine 03/18: patient seen and evaluated at bedside, follow-up basic metabolic panel reviewed potassium replaced, nephrology following. Will follow-up on renal profile PHYSICAL EXAMINATION: GENERAL: The patient is alert and oriented x0 , impaired cognition HEENT: Pupils are round and equally reacting to light. EOMI. Normocephalic, atraumatic. No pharyngeal erythema. No thyromegaly. PULMONARY: Chest is clear to auscultation, no wheezing or crackles. ABDOMEN: Soft, nontender, nondistended, normoactive bowel sounds. No palpable organomegaly. MUSCULOSKELETAL: No joint swelling or deformity. EXTREMITIES: No cyanosis, clubbing, or pedal edema. NEUROLOGICAL: Gross neurological examination did not reveal any focal deficits. Impaired cognition Objective - Vital Signs Vital signs: Vital Signs Temp 98.1 F 03/18/24 04:00 Pulse 93 03/18/24 04:00 Resp 16 03/18/24 04:00 BP 132/83 03/18/24 04:00 Pulse Ox 98 03/18/24 04:00 FiO2 Intake & Output 03/17/24 03/18/24 03/18/24 18:59 06:59 18:59 Intake Total 591 Output Total 975 900 Balance -384 -900 Weight 86.1 kg 51.8 kg Intake: Oral 591 Output: Urine 975 900 Other: Voiding Method Indwelling Catheter Indwelling Catheter - Labs CBC & Chem 7: 03/16/24 07:19 03/18/24 10:33 Labs: Abnormal Lab Results - Last 24 Hours (Table) 03/17/24 03/17/24 03/17/24 Range/Units 10:15 11:20 16:02 Sodium 147 H (137-145) mmol/L Chloride 115 H (98-107) mmol/L BUN 44 H (9-20) mg/dL Creatinine 1.92 H (0.66-1.25) mg/dL Glucose 195 H (74-99) mg/dL POC Glucose (mg/dL) 243 H 152 H (70-110) mg/dL 03/17/24 03/18/24 Range/Units 21:20 06:05 Sodium (137-145) mmol/L Chloride (98-107) mmol/L BUN (9-20) mg/dL Creatinine (0.66-1.25) mg/dL Glucose (74-99) mg/dL POC Glucose (mg/dL) 227 H 126 H (70-110) mg/dL Assessment and Plan Assessment: * Acute kidney injury with hyperkalemia secondary to obstructive uropathy * Acute urinary retention status post Foster catheter * Acute hyponatremia * metabolic acidosis from renal failure * hypertension * Dementia, advanced Plan * continue Foster catheter, initiated Flomax, resuscitated with IV fluids * nephrology following, follow-up on renal profile. Potassium replaced * follow-up on renal profile * continue antihypertensive medication * Labs and medication were reviewed * DVT prophylaxis: Subcutaneous heparin * GI Prophylaxis: Protonix, will need PT OT evaluation Time with Patient: Greater than 30
[2024-03-18] MEDS: POTASSIUM CHLORIDE ER 20 MEQ TAB.ER PO STA (15:38)
[2024-03-18 16:57] LABS: Glucose,Whole Blood 217 mg/dL (70-110)
[2024-03-18 20:21] LABS: Glucose,Whole Blood 247 mg/dL (70-110)
[2024-03-19 05:54] LABS: Glucose,Whole Blood 183 mg/dL (70-110)
[2024-03-19 07:18] LABS: African American GFR (CKD) 82 (>60 ml/min/1.73 sqM); Anion Gap 6 mmol/L; Blood Urea Nitrogen 28 mg/dL (9-20); Calcium 8.2 mg/dL (8.4-10.2); Carbon Dioxide 22 mmol/L (22-30); Chloride 110 mmol/L (98-107); Glucose 177 mg/dL (74-99); Non-African American GFR(CKD) 71 (>60 ml/min/1.73 sqM); Potassium 4.1 mmol/L (3.5-5.1); Sodium 138 mmol/L (137-145)
[2024-03-19] MEDS: LACTATED RINGERS 1,000 ML IV SCH (11:39)
[2024-03-19 11:59] LABS: Glucose,Whole Blood 227 mg/dL (70-110)
--- NOTE | 2024-03-19 12:04 | P.PN ---
Subjective Progress Note Date: 03/19/24 78 years old male with past medical history of dementia who was sent from [facility] for being combative and little short of breath. Patient was found also to have acute urinary retention of 1600 mL/h. There was suspicion even more. Patient is poor historian given his advanced dementia. He is afebrile but mildly tachycardic Labs was very significant for elevated creatinine 12.2 and potassium 6.2. Rest of labs including CBC and LFT were unremarkable On admission lisinopril 20 mg and metformin 500 mg were held. Patient started also on normal saline 75 mL/h Patient was taking prednisone 50 mg at intermediate for unknown reason, we going to lower his dose to 20 mg with close monitoring. 03/17 Patient looks betterHis creatinine came down to 5.1 and potassium normal 4.5Sodium 148He remains on normal saline 75 mL/h Foster catheter in place with yellow urine 03/18: patient seen and evaluated at bedside, follow-up basic metabolic panel reviewed potassium replaced, nephrology following. Will follow-up on renal profile 03/19 ---- patient seen and evaluated at bedside, patient remains afebrile noted to be hypertensive 164 x 87 remains on room air saturation 96%. Blood work reviewed sodium 138 potassium 4.1, chloride 110 creatinine 1.02 which has significantly improved from 12.7, patient needs physical therapy Occupational Therapy evaluation for placement PHYSICAL EXAMINATION: GENERAL: The patient is alert and oriented x0 , impaired cognition HEENT: Pupils are round and equally reacting to light. EOMI. Normocephalic, atraumatic. PULMONARY: Chest is clear to auscultation, no wheezing or crackles. ABDOMEN: Soft, nontender, nondistended, normoactive bowel sounds. No palpable organomegaly. MUSCULOSKELETAL: No joint swelling or deformity. EXTREMITIES: No cyanosis, clubbing, or pedal edema. NEUROLOGICAL: Gross neurological examination did not reveal any focal deficits. Impaired cognition Objective - Vital Signs Vital signs: Vital Signs Temp 98.3 F 03/19/24 03:36 Pulse 64 03/19/24 03:36 Resp 16 03/19/24 03:36 BP 164/87 03/19/24 03:36 Pulse Ox 96 03/19/24 03:36 FiO2 Intake & Output 03/18/24 03/19/24 03/19/24 18:59 06:59 18:59 Intake Total 240 Output Total 1000 900 600 Balance -1000 -892 -790 Weight 77 kg Intake: Oral 240 Output: Urine 1000 900 600 Other: Voiding Method Indwelling Catheter Indwelling Catheter - Labs CBC & Chem 7: 03/16/24 07:19 03/19/24 05:30 Labs: Abnormal Lab Results - Last 24 Hours (Table) 03/18/24 03/18/24 03/18/24 Range/Units 10:33 11:37 16:55 Potassium 3.4 L (3.5-5.1) mmol/L Chloride 111 H (98-107) mmol/L BUN 31 H (9-20) mg/dL Glucose 187 H (74-99) mg/dL POC Glucose (mg/dL) 157 H 217 H (70-110) mg/dL Calcium (8.4-10.2) mg/dL 03/18/24 03/19/24 03/19/24 Range/Units 20:19 05:30 05:52 Potassium (3.5-5.1) mmol/L Chloride 110 H (98-107) mmol/L BUN 28 H (9-20) mg/dL Glucose 177 H (74-99) mg/dL POC Glucose (mg/dL) 247 H 183 H (70-110) mg/dL Calcium 8.2 L (8.4-10.2) mg/dL Assessment and Plan Assessment: * Acute kidney injury with hyperkalemia secondary to obstructive uropathy * Acute urinary retention status post Foster catheter * Acute hyponatremia * metabolic acidosis from renal failure * hypertension * Dementia, advanced Plan * Continue Foster catheter, initiated Flomax, resuscitated with IV fluids * nephrology following, follow-up on renal profile. Potassium replaced * follow-up on renal profile * continue antihypertensive medication * Labs and medication were reviewed * DVT prophylaxis: Subcutaneous heparin * GI Prophylaxis: Protonix, will need PT OT evaluation Time with Patient: Greater than 30
--- NOTE | 2024-03-19 14:02 | P.PN ---
Subjective Patient is seen for follow-up for acute kidney injury, mostly obstructive uropathy. Renal function has improved with serum creatinine down to 1.02 from 12.2 on admission. Patient remains on IV fluids. No significant complaints today. Objective - Vital Signs Vital signs: Vital Signs Temp 98.3 F 03/19/24 03:36 Pulse 78 03/19/24 12:00 Resp 16 03/19/24 12:00 BP 136/82 03/19/24 12:00 Pulse Ox 98 03/19/24 12:00 FiO2 Intake & Output 03/18/24 03/19/24 03/19/24 18:59 06:59 18:59 Intake Total 780 Output Total 4595 230 5104 Balance -1000 -900 -620 Weight 77 kg Intake: Oral 780 Output: Urine 5673 515 3546 Other: Voiding Method Indwelling Catheter Indwelling Catheter Indwelling Catheter - Exam patient is awake, comfortable in no acute distress. Not able to answer questions appropriately. Examination of the heart S1 and S2 Examination of the lungs bilateral breath sounds are heard Abdomen is soft nontender Examination of lower extremities shows no significant edema CANE FLUME WATCHMAN exam shows patient is moving all 4 extremities. - Labs CBC & Chem 7: 03/16/24 07:19 03/19/24 05:30 Labs: Abnormal Lab Results - Last 24 Hours (Table) 03/18/24 03/18/24 03/19/24 Range/Units 16:55 20:19 05:30 Chloride 110 H (98-107) mmol/L BUN 28 H (9-20) mg/dL Glucose 177 H (74-99) mg/dL POC Glucose (mg/dL) 217 H 247 H (70-110) mg/dL Calcium 8.2 L (8.4-10.2) mg/dL 03/19/24 03/19/24 Range/Units 05:52 11:57 Chloride (98-107) mmol/L BUN (9-20) mg/dL Glucose (74-99) mg/dL POC Glucose (mg/dL) 183 H 227 H (70-110) mg/dL Calcium (8.4-10.2) mg/dL Assessment and Plan Assessment: 1. Acute kidney injury mostly obstructive uropathy, currently improving with Foster catheter placement. 2800 ml of urine was obtained on Foster catheter placement. Serum creatinine down to 1.2 from 12.1 on initial admission. 2. Hypernatremia associated with free water deficit, IV fluids adjusted 3. History of dementia 4. History of hypertension, KURT inhibitor's on hold. Plan: Decrease IV fluids repeat labs in a.m. Continue to hold KURT inhibitor's
[2024-03-19 20:15] LABS: Glucose,Whole Blood 235 mg/dL (70-110)
[2024-03-19 21:00] LABS: Glucose,Whole Blood 202 mg/dL (70-110)
[2024-03-20 06:05] LABS: Glucose,Whole Blood 123 mg/dL (70-110)
[2024-03-20 07:14] LABS: HCT 37.4 % (39.0-53.0); HGB 12.1 gm/dL (13.0-17.5); Hypochromasia Slight; MCH 30.8 pg (25.0-35.0); MCHC 32.5 g/dL (31.0-37.0); MCV 94.9 fL (80.0-100.0); Mean Platelet Volume 8.1; Platelet Count 186 k/uL (150-450); RBC 3.94 m/uL (4.30-5.90); RDW 14.5 % (11.5-15.5); WBC 13.1 k/uL (3.8-10.6)
[2024-03-20 07:29] LABS: African American GFR (CKD) 76 (>60 ml/min/1.73 sqM); Anion Gap 5 mmol/L; Blood Urea Nitrogen 22 mg/dL (9-20); Calcium 8.5 mg/dL (8.4-10.2); Carbon Dioxide 28 mmol/L (22-30); Chloride 106 mmol/L (98-107); Glucose 113 mg/dL (74-99); Non-African American GFR(CKD) 66 (>60 ml/min/1.73 sqM); Potassium 3.5 mmol/L (3.5-5.1); Sodium 139 mmol/L (137-145)
[2024-03-20 12:15] LABS: Glucose,Whole Blood 124 mg/dL (70-110)
[2024-03-20 17:16] LABS: Glucose,Whole Blood 215 mg/dL (70-110)
[2024-03-20 22:05] LABS: Glucose,Whole Blood 193 mg/dL (70-110)
[2024-03-20] MEDS: HEPARIN SODIUM,PORCINE 5,000 UNIT/ML 1 ML VIAL SQ SCH (22:30)
[2024-03-21 07:17] LABS: Glucose,Whole Blood 118 mg/dL (70-110)
[2024-03-21 08:41] LABS: Blood Urea Nitrogen 18.1 mg/dL (9.0-27.0); Chloride 105 mmol/L (96-109); Glucose 153 mg/dL (70-110); Potassium 4.2 mmol/L (3.5-5.5); Sodium 138 mmol/L (135-145)
[2024-03-21 08:42] LABS: Calcium 8.4 mg/dL (8.7-10.3); Carbon Dioxide 24.5 mmol/L (21.6-31.8)
[2024-03-21 09:04] LABS: Basophils # (A) 0.05 X 10*3/uL (0.00-0.10); Basophils % (A) 0.4 %; Eosinophils % (A) 2.9 %; HGB 12.3 g/dL (13.0-17.0); Lymphocytes # (A) 4.67 X 10*3/uL (0.90-5.00); Lymphocytes % (A) 33.8 %; MCH 30.1 pg (27.0-32.0); MCHC 33.2 g/dL (32.0-37.0); MCV 90.7 FL (80.0-97.0); Mean Platelet Volume 10.9 FL (9.5-12.2); Monocytes # (A) 0.75 X 10*3/uL (0.20-1.00); Monocytes % (A) 5.4 %; NRBC Per 100 WBC 0 X 10*3/uL (0.00-0.01); Neutrophils # (A) 7.83 X 10*3/uL (1.80-7.70); Neutrophils % (A) 56.6 %; Platelet Count 174 X 10*3/uL (140-440); RBC 4.08 X 10*6/uL (4.40-5.60); WBC 13.82 X 10*3/uL (4.50-10.00)
[2024-03-21] MEDS: predniSONE 10 MG TAB PO SCH (09:53)
--- NOTE | 2024-03-21 10:24 | P.PN ---
Subjective Progress Note Date: 03/20/24 78 years old male with past medical history of dementia who was sent from senior care for being combative and little short of breath. Patient was found also to have acute urinary retention of 1600 mL/h. There was suspicion even more. Patient is poor historian given his advanced dementia. He is afebrile but mildly tachycardic Labs was very significant for elevated creatinine 12.2 and potassium 6.2. Rest of labs including CBC and LFT were unremarkable On admission lisinopril 20 mg and metformin 500 mg were held. Patient started also on normal saline 75 mL/h Patient was taking prednisone 50 mg at senior care for unknown reason, we going to lower his dose to 20 mg with close monitoring. 03/17 Patient looks betterHis creatinine came down to 5.1 and potassium normal 4.5Sodium 148He remains on normal saline 75 mL/h Foster catheter in place with yellow urine 03/18: patient seen and evaluated at bedside, follow-up basic metabolic panel reviewed potassium replaced, nephrology following. Will follow-up on renal profile 03/19 ---- patient seen and evaluated at bedside, patient remains afebrile noted to be hypertensive 164 x 87 remains on room air saturation 96%. Blood work reviewed sodium 138 potassium 4.1, chloride 110 creatinine 1.02 which has significantly improved from 12.7, patient needs physical therapy Occupational Therapy evaluation for placement 03/20/2024 Patient is lying in the bed. Awake alert. Patient does have underlying dementia. Denied any complaints of chest pain or shortness of breath. Foster catheter in place. No cough or sputum production. Laboratory data showed WBC 13.1 hemoglobin 12.1 and platelets 186 BUN 2020 creatinine proved to 1.08 and blood sugar 123. Patient is a Ringer's lactate at 50 cc/h. PT OT is following. PHYSICAL EXAMINATION: GENERAL: The patient is alert and oriented x0 , impaired cognition HEENT: Pupils are round and equally reacting to light. EOMI. Normocephalic, atraumatic. PULMONARY: Chest is clear to auscultation, no wheezing or crackles. ABDOMEN: Soft, nontender, nondistended, normoactive bowel sounds. No palpable or ganomegaly. MUSCULOSKELETAL: No joint swelling or deformity. EXTREMITIES: No cyanosis, clubbing, or pedal edema. NEUROLOGICAL: Gross neurological examination did not reveal any focal deficits. Impaired cognition Objective - Vital Signs Vital signs: Vital Signs Temp 98.1 F 03/20/24 08:00 Pulse 64 03/20/24 08:00 Resp 16 03/20/24 08:00 BP 149/73 03/20/24 08:00 Pulse Ox 97 03/20/24 08:00 FiO2 Intake & Output 03/19/24 03/20/24 03/20/24 18:59 06:59 18:59 Intake Total 898 240 Output Total 1999 1999 Balance -1102 -1760 Weight 77.6 kg Intake: Oral 898 240 Output: Urine 1999 1999 Other: Voiding Method Indwelling Catheter Indwelling Catheter Indwelling Catheter # Bowel Movements 1 - Labs CBC & Chem 7: 03/21/24 04:30 03/21/24 04:30 Labs: Abnormal Lab Results - Last 24 Hours (Table) 03/19/24 03/19/24 03/19/24 Range/Units 11:57 16:40 20:13 WBC (3.8-10.6) k/uL RBC (4.30-5.90) m/uL Hgb (13.0-17.5) gm/dL Hct (39.0-53.0) % BUN (9-20) mg/dL Glucose (74-99) mg/dL POC Glucose (mg/dL) 227 H 202 H 235 H (70-110) mg/dL 03/20/24 03/20/24 03/20/24 Range/Units 06:03 06:08 06:08 WBC 13.1 H (3.8-10.6) k/uL RBC 3.94 L (4.30-5.90) m/uL Hgb 12.1 L (13.0-17.5) gm/dL Hct 37.4 L (39.0-53.0) % BUN 22 H (9-20) mg/dL Glucose 113 H (74-99) mg/dL POC Glucose (mg/dL) 123 H (70-110) mg/dL Assessment and Plan Assessment: Assessment: * Acute kidney injury with hyperkalemia secondary to obstructive uropathy. Improved now. * Acute urinary retention status post Foster catheter * Acute hyponatremia * metabolic acidosis from renal failure * hypertension * Dementia, advanced Plan * Continue Foster catheter, initiated Flomax, continue with IV hydration with Ringer's lactate at 50 cc/h. * nephrology following, follow-up on renal profile. Potassium replaced * follow-up on renal profile * continue antihypertensive medication * Patient is on prednisone at senior care. Tapering down to 10 mg daily for 3 days and stop after that. * Labs and medication were reviewed * DVT prophylaxis: Subcutaneous heparin * GI Prophylaxis: Protonix, will need PT OT evaluation Time with Patient: Greater than 30
--- NOTE | 2024-03-21 10:47 | P.PN ---
Subjective Patient is seen in follow-up for acute kidney injury. Creatinine 1.0 today. Has Foster catheter. Nonoliguric. Oral intake fair. No active complaints. Vital signs are stable. General: No acute distress. HEENT: Head exam is unremarkable. LUNGS: No audible rhonchi or wheezes. HEART: Rate and Rhythm are regular. ABDOMEN: Nontender. EXTREMITITES: No edema. Objective - Vital Signs Vital signs: Vital Signs Temp 97.1 F L 03/21/24 07:15 Pulse 73 03/21/24 07:15 Resp 18 03/21/24 07:15 BP 144/84 03/21/24 07:15 Pulse Ox 99 03/21/24 07:15 FiO2 Intake & Output 03/20/24 03/21/24 03/21/24 18:59 06:59 18:59 Intake Total 300 Output Total 1000 2650 Balance -1000 -2350 Weight 57.5 kg Intake: Oral 300 Output: Urine 1000 2650 Other: Voiding Method Indwelling Catheter Indwelling Catheter Indwelling Catheter # Bowel Movements 1 - Labs CBC & Chem 7: 03/21/24 04:30 03/21/24 04:30 Labs: Abnormal Lab Results - Last 24 Hours (Table) 03/20/24 03/20/24 03/20/24 Range/Units 12:13 17:14 22:03 WBC (4.50-10.00) X 10*3/uL RBC (4.40-5.60) X 10*6/uL Hgb (13.0-17.0) g/dL Hct (39.6-50.0) % RDW (11.5-14.5) % Immature Gran # (0.00-0.04) X 10*3/uL Neutrophils # (1.80-7.70) X 10*3/uL Eosinophils # (0.04-0.35) X 10*3/uL Glucose (70-110) mg/dL POC Glucose (mg/dL) 124 H 215 H 193 H (70-110) mg/dL Calcium (8.7-10.3) mg/dL 03/21/24 03/21/24 03/21/24 Range/Units 04:30 04:30 07:16 WBC 13.82 H (4.50-10.00) X 10*3/uL RBC 4.08 L (4.40-5.60) X 10*6/uL Hgb 12.3 L (13.0-17.0) g/dL Hct 37.0 L (39.6-50.0) % RDW 15.0 H (11.5-14.5) % Immature Gran # 0.12 H (0.00-0.04) X 10*3/uL Neutrophils # 7.83 H (1.80-7.70) X 10*3/uL Eosinophils # 0.40 H (0.04-0.35) X 10*3/uL Glucose 153 H (70-110) mg/dL POC Glucose (mg/dL) 118 H (70-110) mg/dL Calcium 8.4 L (8.7-10.3) mg/dL Assessment and Plan Plan: Assessment: 1. Acute kidney injury secondary to obstructive uropathy. Improved with Foster catheter placement. Creatinine over 12 on admission and is 1.0 today. 2. Hypernatremia from lack of oral intake. Resolved. 3. Benign hypertension. Stable. 4. Urinary retention. Has Foster catheter. On Flomax. Plan: Maintain gentle IV hydration. Encouraged oral intake. Okay to do trial of void prior to discharge. If has persistent retention, will need urology eval.
[2024-03-21 12:22] LABS: Glucose,Whole Blood 203 mg/dL (70-110)
[2024-03-21 17:23] LABS: Glucose,Whole Blood 208 mg/dL (70-110)
[2024-03-21 20:36] LABS: Glucose,Whole Blood 175 mg/dL (70-110)
[2024-03-21] MEDS ORDERED: IPRATROPIUM-ALBUTEROL 3 ML NEB INHALATION PRN (23:10)
[2024-03-21] MEDS: LACTATED RINGERS 1,000 ML IV SCH (23:30)
[2024-03-22] MEDS ORDERED: ONDANSETRON 4 MG/2 ML VIAL IVP PRN (01:46)
[2024-03-22 07:26] LABS: Glucose,Whole Blood 109 mg/dL (70-110)
[2024-03-22 08:54] LABS: HGB 13.4 g/dL (13.0-17.0); MCH 30.5 pg (27.0-32.0); MCHC 33.5 g/dL (32.0-37.0); MCV 90.9 FL (80.0-97.0); NRBC Per 100 WBC 0 X 10*3/uL (0.00-0.01); Platelet Count 212 X 10*3/uL (140-440); WBC 16.72 X 10*3/uL (4.50-10.00)
[2024-03-22 09:23] LABS: Blood Urea Nitrogen 18.8 mg/dL (9.0-27.0); Carbon Dioxide 26.5 mmol/L (21.6-31.8); Chloride 102 mmol/L (96-109); Glucose 127 mg/dL (70-110); Potassium 3.9 mmol/L (3.5-5.5); Sodium 139 mmol/L (135-145)
--- NOTE | 2024-03-22 09:39 | P.PN ---
Subjective Progress Note Date: 03/21/24 78 years old male with past medical history of dementia who was [facility] from [facility] for being combative and little short of breath. Patient was found also to have acute urinary retention of 1600 mL/h. There was suspicion even more. Patient is poor historian given his advanced dementia. He is afebrile but mildly tachycardic Labs was very significant for elevated creatinine 12.2 and potassium 6.2. Rest of labs including CBC and LFT were unremarkable On admission lisinopril 20 mg and metformin 500 mg were held. Patient started also on normal saline 75 mL/h Patient was taking prednisone 50 mg at detention for unknown reason, we going to lower his dose to 20 mg with close monitoring. 03/17 Patient looks betterHis creatinine came down to 5.1 and potassium normal 4.5Sodium 148He remains on normal saline 75 mL/h Foster catheter in place with yellow urine 03/18: patient seen and evaluated at bedside, follow-up basic metabolic panel reviewed potassium replaced, nephrology following. Will follow-up on renal profile 03/19 ---- patient seen and evaluated at bedside, patient remains afebrile noted to be hypertensive 164 x 87 remains on room air saturation 96%. Blood work reviewed sodium 138 potassium 4.1, chloride 110 creatinine 1.02 which has significantly improved from 12.7, patient needs physical therapy Occupational Therapy evaluation for placement 03/20/2024 Patient is lying in the bed. Awake alert. Patient does have underlying dementia. Denied any complaints of chest pain or shortness of breath. Foster catheter in place. No cough or sputum production. Laboratory data showed WBC 13.1 hemoglobin 12.1 and platelets 186 BUN 2020 creatinine proved to 1.08 and blood sugar 123. Patient is a Ringer's lactate at 50 cc/h. PT OT is following. 03/21/2024 Patient resting in the bed. Awake alert and mentation is at baseline. Underlying dementia. On room air. Denied any complaints of abdominal pain. No complaints of chest pain or shortness of breath. Patient did have involvement. Still maintained on Foster catheter. Laboratory data showed WBC 13.8 hemoglobin 12.3 and platelets 174, sodium 138 potassium 4.2 chloride 105 bicarb is 24.5 BUN 18.1 and creatinine 1.0. Patient is being continued on IV hydration with Ringer's lactate at 50 cc/hr. PHYSICAL EXAMINATION: GENERAL: The patient is alert and oriented x0 , impaired cognition HEENT: Pupils are round and equally reacting to light. EOMI. Normocephalic, atraumatic. PULMONARY: Chest is clear to auscultation, no wheezing or crackles. ABDOMEN: Soft, nontender, nondistended, normoactive bowel sounds. No palpable organomegaly. MUSCULOSKELETAL: No joint swelling or deformity. EXTREMITIES: No cyanosis, clubbing, or pedal edema. NEUROLOGICAL: Gross neurological examination did not reveal any focal deficits. Impaired cognition Objective - Vital Signs Vital signs: Vital Signs Temp 97.5 F L 03/21/24 20:00 Pulse 81 03/21/24 20:00 Resp 14 03/21/24 20:00 BP 135/90 03/21/24 20:00 Pulse Ox 99 03/21/24 20:00 FiO2 Intake & Output 03/21/24 03/21/24 03/22/24 06:59 18:59 06:59 Intake Total 300 Output Total 2650 1700 Balance -2350 -1700 Weight 57.5 kg Intake: Oral 300 Output: Urine 2650 1700 Other: Voiding Method Indwelling Catheter Indwelling Catheter - Labs CBC & Chem 7: 03/22/24 05:07 03/22/24 05:07 Labs: Abnormal Lab Results - Last 24 Hours (Table) 03/21/24 03/21/24 03/21/24 Range/Units 04:30 04:30 07:16 WBC 13.82 H (4.50-10.00) X 10*3/uL RBC 4.08 L (4.40-5.60) X 10*6/uL Hgb 12.3 L (13.0-17.0) g/dL Hct 37.0 L (39.6-50.0) % RDW 15.0 H (11.5-14.5) % Immature Gran # 0.12 H (0.00-0.04) X 10*3/uL Neutrophils # 7.83 H (1.80-7.70) X 10*3/uL Eosinophils # 0.40 H (0.04-0.35) X 10*3/uL Glucose 153 H (70-110) mg/dL POC Glucose (mg/dL) 118 H (70-110) mg/dL Calcium 8.4 L (8.7-10.3) mg/dL 03/21/24 03/21/24 03/21/24 Range/Units 12:20 17:22 20:35 WBC (4.50-10.00) X 10*3/uL RBC (4.40-5.60) X 10*6/uL Hgb (13.0-17.0) g/dL Hct (39.6-50.0) % RDW (11.5-14.5) % Immature Gran # (0.00-0.04) X 10*3/uL Neutrophils # (1.80-7.70) X 10*3/uL Eosinophils # (0.04-0.35) X 10*3/uL Glucose (70-110) mg/dL POC Glucose (mg/dL) 203 H 208 H 175 H (70-110) mg/dL Calcium (8.7-10.3) mg/dL Assessment and Plan Assessment: Assessment: * Acute kidney injury with hyperkalemia secondary to obstructive uropathy. Improved now. * Acute urinary retention status post Foster catheter * Acute hyponatremia * metabolic acidosis from renal failure. Improved. * hypertension * Dementia, advanced * Leukocytosis Plan * Continue Foster catheter, initiated Flomax, continue with IV hydration with Ringer's lactate at 50 cc/h. * nephrology following, follow-up on renal profile. * follow-up on renal profile * continue antihypertensive medication * Patient is on prednisone at detention. Tapering down to 10 mg daily for 3 days and stop after that. * Continue to monitor WBC count. * Labs and medication were reviewed * DVT prophylaxis: Subcutaneous heparin * GI Prophylaxis: Protonix, will need PT OT evaluation
[2024-03-22 12:47] LABS: Glucose,Whole Blood 204 mg/dL (70-110)
--- NOTE | 2024-03-22 13:23 | CDI ---
Documentation Clarification Form Date: 03/22/2024 12:36:24 PM From: Jennie Rivera RN, CCDS Email: [email or web address] Admit Date: 03/15/2024 03:58:00 PM Patient Name: Jameson Hess Visit Number: [id number] Discharge Date: ATTENTION: The Clinical Documentation Specialists (CDI) and [facility] Coding Staff appreciate your assistance in clarifying documentation. Please respond to the clarification below the line at the bottom and electronically sign. The CDI & [facility] Coding staff will review the response and follow-up if needed. Please note: Queries are made part of the Legal Health Record. If you have any questions, please contact the author of this message via ITS. Doctor Marcin E Sheet Acute kidney injury is documented in the progress notes. Additional clarification is requested. History/Risk factors: Dementia, lives in a half-way. Presented from half-way for being combative. Found to have urinary retention of 1600cc and Cr 12.2. Admitted with ENRRIQUE from obstructive uropathy. Clinical Indicators: H&P: "Acute kidney injury with hyperkalemia secondary to obstructive uropathy." Nephrology: " Acute kidney injury mostly obstructive uropathy, currently improving with Foster catheter placement. 2800 ml of urine was obtained on Foster catheter placement." 03/15-03/22 Labs: Cr. 12.27-5.16-1.92-1.0 Patient presents with a CR: 12.2 03/15 Urinalysis: large blood, moderate leukocyte esterase, RBC, WBC, rare amorphous sediment, bacteria Treatment: Foster catheter insertion; 0.9 NS @75mL/hr 03/15-03/16; 0.45 NS @130mL/hr 03/16-03/20; Flomax 0.4mg po BID 03/15-03/22 Consults: See Nephrology above Please clarify the diagnosis, if known: [ x ] ENRRIQUE with ATN from obstructive uropathy [ ] ENRRIQUE with no further specificity [ ] Unable to determine [ ] Other, please specify MTDD
[2024-03-22 13:27] LABS: Basophils # (M) 0 X 10*3/uL (0.00-0.10); Lymphocytes # (M) 7.02 X 10*3/uL (0.90-5.00); Monocytes # (M) 0.84 X 10*3/uL (0.20-1.00); Neutrophils # (M) 8.36 X 10*3/uL (1.80-7.70); Neutrophils % (M) 50 %
[2024-03-22 17:14] LABS: Glucose,Whole Blood 118 mg/dL (70-110)
[2024-03-22 20:26] LABS: Glucose,Whole Blood 253 mg/dL (70-110)
[2024-03-23 07:07] LABS: Glucose,Whole Blood 96 mg/dL (70-110)
[2024-03-23 08:52] LABS: HCT 36.1 % (39.6-50.0); HGB 11.5 g/dL (13.0-17.0); MCH 29.4 pg (27.0-32.0); MCHC 31.9 g/dL (32.0-37.0); MCV 92.3 FL (80.0-97.0); Mean Platelet Volume 11.5 FL (9.5-12.2); NRBC Per 100 WBC 0 X 10*3/uL (0.00-0.01); Platelet Count 192 X 10*3/uL (140-440); RBC 3.91 X 10*6/uL (4.40-5.60); RDW 15.6 % (11.5-14.5); WBC 14.43 X 10*3/uL (4.50-10.00)
[2024-03-23 10:12] LABS: BUN/Creat Ratio 20.25 Ratio (12.00-20.00); Blood Urea Nitrogen 24.3 mg/dL (9.0-27.0); Calcium 8.4 mg/dL (8.7-10.3); Carbon Dioxide 24.7 mmol/L (21.6-31.8); Chloride 106 mmol/L (96-109); Glucose 76 mg/dL (70-110); Potassium 3.7 mmol/L (3.5-5.5); Sodium 140 mmol/L (135-145)
[2024-03-23 12:11] LABS: Glucose,Whole Blood 186 mg/dL (70-110)
[2024-03-23 12:25] LABS: Basophils # (M) 0.14 X 10*3/uL (0.00-0.10); Eosinophils # (M) 0.43 X 10*3/uL (0.04-0.35); Lymphocytes # (M) 4.62 X 10*3/uL (0.90-5.00); Monocytes # (M) 0.58 X 10*3/uL (0.20-1.00); Myelocytes % 1 % (0-0); Neutrophils # (M) 8.51 X 10*3/uL (1.80-7.70); Neutrophils % (M) 59 %; RBC Morphology Normal (Normal)
[2024-03-23 17:09] LABS: Glucose,Whole Blood 122 mg/dL (70-110)
[2024-03-23 20:15] LABS: Glucose,Whole Blood 179 mg/dL (70-110)
--- NOTE | 2024-03-23 21:10 | P.PN ---
Subjective Progress Note Date: 03/22/24 78 years old male with past medical history of dementia who was [facility] being [facility] and little short of breath. Patient was found also to have acute urinary retention of 1600 mL/h. There was suspicion even more. Patient is poor historian given his advanced dementia. He is afebrile but mildly tachycardic Labs was very significant for elevated creatinine 12.2 and potassium 6.2. Rest of labs including CBC and LFT were unremarkable On admission lisinopril 20 mg and metformin 500 mg were held. Patient started also on normal saline 75 mL/h Patient was taking prednisone 50 mg at [facility] for unknown reason, we going to lower his dose to 20 mg with close monitoring. 03/17 Patient looks betterHis creatinine came down to 5.1 and potassium normal 4.5Sodium 148He remains on normal saline 75 mL/h Foster catheter in place with yellow urine 03/18: patient seen and evaluated at bedside, follow-up basic metabolic panel reviewed potassium replaced, nephrology following. Will follow-up on renal profile 03/19 ---- patient seen and evaluated at bedside, patient remains afebrile noted to be hypertensive 164 x 87 remains on room air saturation 96%. Blood work reviewed sodium 138 potassium 4.1, chloride 110 creatinine 1.02 which has significantly improved from 12.7, patient needs physical therapy Occupational Therapy evaluation for placement 03/20/2024 Patient is lying in the bed. Awake alert. Patient does have underlying dementia. Denied any complaints of chest pain or shortness of breath. Foster catheter in place. No cough or sputum production. Laboratory data showed WBC 13.1 hemoglobin 12.1 and platelets 186 BUN 2020 creatinine proved to 1.08 and blood sugar 123. Patient is a Ringer's lactate at 50 cc/h. PT OT is following. 03/21/2024 Patient resting in the bed. Awake alert and mentation is at baseline. Underlying dementia. On room air. Denied any complaints of abdominal pain. No complaints of chest pain or shortness of breath. Patient did have involvement. Still maintained on Foster catheter. Laboratory data showed WBC 13.8 hemoglobin 12.3 and platelets 174, sodium 138 potassium 4.2 chloride 105 bicarb is 24.5 BUN 18.1 and creatinine 1.0. Patient is being continued on IV hydration with Ringer's lactate at 50 cc/hr. 03/22/2024 Patient is resting in the bed. Awake alert and mentation is baseline with underlying dementia. On room air. No complaints of abdominal pain. Patient did have a bowel movement. No cough or sputum production. Able to tolerate oral diet. No cough or sputum production. Patient has been afebrile. Patient has been current on Flomax. Foster catheter is being discontinued today. Laboratory showed WBC 16.7 hemoglobin 13.4 and platelets 212 sodium 139 potassium 3.9 chloride 102 bicarb is 26.5 BUN 18.8 and creatinine 1.0 and glucose 127. Nephrology is on board. PHYSICAL EXAMINATION: GENERAL: The patient is alert and oriented x0 , impaired cognition HEENT: Pupils are round and equally reacting to light. EOMI. Normocephalic, atraumatic. PULMONARY: Chest is clear to auscultation, no wheezing or crackles. ABDOMEN: Soft, nontender, nondistended, normoactive bowel sounds. No palpable organomegaly. MUSCULOSKELETAL: No joint swelling or deformity. EXTREMITIES: No cyanosis, clubbing, or pedal edema. NEUROLOGICAL: Gross neurological examination did not reveal any focal deficits. Impaired cognition Objective - Vital Signs Vital signs: Vital Signs Temp 98.4 F 03/22/24 07:25 Pulse 72 03/22/24 07:25 Resp 18 03/22/24 07:25 BP 151/97 03/22/24 07:25 Pulse Ox 98 03/22/24 07:25 FiO2 Intake & Output 03/21/24 03/22/24 03/22/24 18:59 06:59 18:59 Intake Total 200 Output Total 1700 1500 Balance -1700 -1300 Weight 55 kg Intake: Oral 200 Output: Urine 1700 1500 Other: Voiding Method Indwelling Catheter Indwelling Catheter Indwelling Catheter - Labs CBC & Chem 7: 03/23/24 04:16 03/23/24 04:16 Labs: Abnormal Lab Results - Last 24 Hours (Table) 03/21/24 03/21/24 03/21/24 Range/Units 12:20 17:22 20:35 WBC (4.50-10.00) X 10*3/uL RDW (11.5-14.5) % Glucose (70-110) mg/dL POC Glucose (mg/dL) 203 H 208 H 175 H (70-110) mg/dL 03/22/24 03/22/24 Range/Units 05:07 05:07 WBC 16.72 H (4.50-10.00) X 10*3/uL RDW 15.0 H (11.5-14.5) % Glucose 127 H (70-110) mg/dL POC Glucose (mg/dL) (70-110) mg/dL Assessment and Plan Assessment: Assessment: * Acute kidney injury with hyperkalemia secondary to obstructive uropathy. Improved now. * Acute urinary retention status post Foster catheter * Acute hyponatremia * metabolic acidosis from renal failure. Improved. * hypertension * Dementia, advanced * Leukocytosis Plan * Trial of void today. Continue with Flomax, continue with IV hydration with Ringer's lactate at 50 cc/h. * nephrology following, follow-up on renal profile. * follow-up on renal profile * continue antihypertensive medication * Patient is on prednisone at [facility]. Tapered off prednisone. * Continue to monitor WBC count. * Labs and medication were reviewed * DVT prophylaxis: Subcutaneous heparin * GI Prophylaxis: Protonix, will need PT OT evaluation
--- NOTE | 2024-03-23 21:13 | P.PN ---
Subjective Progress Note Date: 03/23/24 78 years old male with past medical history of dementia who was sent from [facility] for being combative and little short of breath. Patient was found also to have acute urinary retention of 1600 mL/h. There was suspicion even more. Patient is poor historian given his advanced dementia. He is afebrile but mildly tachycardic Labs was very significant for elevated creatinine 12.2 and potassium 6.2. Rest of labs including CBC and LFT were unremarkable On admission lisinopril 20 mg and metformin 500 mg were held. Patient started also on normal saline 75 mL/h Patient was taking prednisone 50 mg at [facility] for unknown reason, we going to lower his dose to 20 mg with close monitoring. 03/17 Patient looks betterHis creatinine came down to 5.1 and potassium normal 4.5Sodium 148He remains on normal saline 75 mL/h Foster catheter in place with yellow urine 03/18: patient seen and evaluated at bedside, follow-up basic metabolic panel reviewed potassium replaced, nephrology following. Will follow-up on renal profile 03/19 ---- patient seen and evaluated at bedside, patient remains afebrile noted to be hypertensive 164 x 87 remains on room air saturation 96%. Blood work reviewed sodium 138 potassium 4.1, chloride 110 creatinine 1.02 which has significantly improved from 12.7, patient needs physical therapy Occupational Therapy evaluation for placement 03/20/2024 Patient is lying in the bed. Awake alert. Patient does have underlying dementia. Denied any complaints of chest pain or shortness of breath. Foster catheter in place. No cough or sputum production. Laboratory data showed WBC 13.1 hemoglobin 12.1 and platelets 186 BUN 2020 creatinine proved to 1.08 and blood sugar 123. Patient is a Ringer's lactate at 50 cc/h. PT OT is following. 03/21/2024 Patient resting in the bed. Awake alert and mentation is at baseline. Underlying dementia. On room air. Denied any complaints of abdominal pain. No complaints of chest pain or shortness of breath. Patient did have involvement. Still maintained on Foster catheter. Laboratory data showed WBC 13.8 hemoglobin 12.3 and platelets 174, sodium 138 potassium 4.2 chloride 105 bicarb is 24.5 BUN 18.1 and creatinine 1.0. Patient is being continued on IV hydration with Ringer's lactate at 50 cc/hr. 03/22/2024 Patient is resting in the bed. Awake alert and mentation is baseline with underlying dementia. On room air. No complaints of abdominal pain. Patient did have a bowel movement. No cough or sputum production. Able to tolerate oral diet. No cough or sputum production. Patient has been afebrile. Patient has been current on Flomax. Foster catheter is being discontinued today. Laboratory showed WBC 16.7 hemoglobin 13.4 and platelets 212 sodium 139 potassium 3.9 chloride 102 bicarb is 26.5 BUN 18.8 and creatinine 1.0 and glucose 127. Nephrology is on board. 03/23/2024 Patient is resting in the bed. Awake alert. Underlying cognitive impairment. Afebrile. On room air. No cough or sputum production. Denied any abdominal pain. Denied any chest pain or shortness of air. Was patient did require straight catheterization x 2 overnight. Placed on Foster catheter today. Laboratory data showed WBC 14.4 hemoglobin 11.5 and platelets 192 sodium 140 potassium 3.7 chloride 106 bicarb is 24.7 BUN 24.3 and creatinine 1.2 and blood sugar is 76 and calcium 8.4. PHYSICAL EXAMINATION: GENERAL: The patient is alert and oriented x0 , impaired cognition HEENT: Pupils are round and equally reacting to light. EOMI. Normocephalic, atraumatic. PULMONARY: Chest is clear to auscultation, no wheezing or crackles. ABDOMEN: Soft, nontender, nondistended, normoactive bowel sounds. No palpable organomegaly. MUSCULOSKELETAL: No joint swelling or deformity. EXTREMITIES: No cyanosis, clubbing, or pedal edema. NEUROLOGICAL: Gross neurological examination did not reveal any focal deficits. Impaired cognition Objective - Vital Signs Vital signs: Vital Signs Temp 98.0 F 03/23/24 18:53 Pulse 73 03/23/24 18:53 Resp 17 03/23/24 18:53 BP 121/75 03/23/24 18:53 Pulse Ox 97 03/23/24 18:53 FiO2 Intake & Output 03/23/24 03/23/24 03/24/24 06:59 18:59 06:59 Intake Total 1020 Output Total 2470 600 Balance -2470 420 Weight 61.5 kg Intake: Oral 1020 Output: Urine 2470 600 Straight 970 Other: Voiding Method Indwelling Catheter Indwelling Catheter # Voids 0 # Bowel Movements 1 - Labs CBC & Chem 7: 03/23/24 04:16 03/23/24 04:16 Labs: Abnormal Lab Results - Last 24 Hours (Table) 03/22/24 03/23/24 03/23/24 Range/Units 20:11 04:16 04:16 WBC 14.43 H (4.50-10.00) X 10*3/uL RBC 3.91 L (4.40-5.60) X 10*6/uL Hgb 11.5 L (13.0-17.0) g/dL Hct 36.1 L (39.6-50.0) % MCHC 31.9 L (32.0-37.0) g/dL RDW 15.6 H (11.5-14.5) % Neutrophils # (Manual) 8.51 H (1.80-7.70) X 10*3/uL Eosinophils # (Manual) 0.43 H (0.04-0.35) X 10*3/uL Basophils # (Manual) 0.14 H (0.00-0.10) X 10*3/uL BUN/Creatinine Ratio 20.25 H (12.00-20.00) Ratio POC Glucose (mg/dL) 253 H (70-110) mg/dL Calcium 8.4 L (8.7-10.3) mg/dL 03/23/24 03/23/24 03/23/24 Range/Units 12:09 17:07 20:13 WBC (4.50-10.00) X 10*3/uL RBC (4.40-5.60) X 10*6/uL Hgb (13.0-17.0) g/dL Hct (39.6-50.0) % MCHC (32.0-37.0) g/dL RDW (11.5-14.5) % Neutrophils # (Manual) (1.80-7.70) X 10*3/uL Eosinophils # (Manual) (0.04-0.35) X 10*3/uL Basophils # (Manual) (0.00-0.10) X 10*3/uL BUN/Creatinine Ratio (12.00-20.00) Ratio POC Glucose (mg/dL) 186 H 122 H 179 H (70-110) mg/dL Calcium (8.7-10.3) mg/dL Assessment and Plan Assessment: Assessment: * Acute kidney injury with hyperkalemia secondary to obstructive uropathy. Improved now. * Acute urinary retention status post Foster catheter * Acute hyponatremia * metabolic acidosis from renal failure. Improved. * hypertension * Dementia, advanced * Leukocytosis Plan * Patient failed trial of void. Did require straight catheterization twice over night. Foster catheter was placed again. Repeat urinalysis was ordered. Co ntinue with Flomax, continue with IV hydration with Ringer's lactate at 50 cc/h. * nephrology following, follow-up on renal profile. * follow-up on renal profile * continue antihypertensive medication * Patient is on prednisone at [facility]. Tapered off prednisone. * Continue to monitor WBC count. * Labs and medication were reviewed * DVT prophylaxis: Subcutaneous heparin * GI Prophylaxis: Protonix, will need PT OT evaluation
[2024-03-24 00:29] LABS: Amorphous Sediment,Urine Moderate /hpf; Bacteria,Urine Occasional /hpf; Hyaline Casts,Urine 13 /lpf (0-2); Mucus,Urine Many /hpf; RBC,Urine 8 /hpf (0-5); Triple Phosphate Crystal,Urine Many /hpf
[2024-03-24 00:36] LABS: Appearance,Urine Turbid (Clear); Bilirubin,Urine Negative (Negative); Blood,Urine Small (Negative); Color,Urine Light Yellow; Glucose,Urine (UA) Negative (Negative); Ketones,Urine Negative (Negative); Leukocyte Esterase,Urine Large (Negative); Nitrite,Urine Negative (Negative); Protein,Urine 2+ (Negative); Specific Gravity,Urine 1.022 (1.001-1.035); Urobilinogen,Urine <2.0 mg/dL (<2.0)
[2024-03-24 00:38] LABS: WBC,Urine >182 /hpf (0-5)
[2024-03-24 07:45] LABS: Glucose,Whole Blood 109 mg/dL (70-110)
[2024-03-24 10:36] LABS: Basophils # (A) 0.06 X 10*3/uL (0.00-0.10); Basophils % (A) 0.5 %; Eosinophils # (A) 0.35 X 10*3/uL (0.04-0.35); Eosinophils % (A) 2.9 %; HCT 33.9 % (39.6-50.0); HGB 11.1 g/dL (13.0-17.0); Lymphocytes % (A) 40.7 %; MCH 30.2 pg (27.0-32.0); MCHC 32.7 g/dL (32.0-37.0); MCV 92.1 FL (80.0-97.0); Mean Platelet Volume 11.3 FL (9.5-12.2); Monocytes # (A) 0.74 X 10*3/uL (0.20-1.00); Monocytes % (A) 6.2 %; NRBC Per 100 WBC 0 X 10*3/uL (0.00-0.01); Neutrophils # (A) 5.88 X 10*3/uL (1.80-7.70); Neutrophils % (A) 48.9 %; Platelet Count 160 X 10*3/uL (140-440); RBC 3.68 X 10*6/uL (4.40-5.60); RDW 15.8 % (11.5-14.5); WBC 12.03 X 10*3/uL (4.50-10.00)
[2024-03-24 10:53] LABS: BUN/Creat Ratio 23.82 Ratio (12.00-20.00); Blood Urea Nitrogen 26.2 mg/dL (9.0-27.0); Calcium 8.4 mg/dL (8.7-10.3); Carbon Dioxide 25.5 mmol/L (21.6-31.8); Chloride 106 mmol/L (96-109); Glucose 122 mg/dL (70-110); Potassium 3.9 mmol/L (3.5-5.5); Sodium 140 mmol/L (135-145)
[2024-03-24 12:28] LABS: Glucose,Whole Blood 189 mg/dL (70-110)
[2024-03-24 13:49] VITALS: BMI 17.0
--- NOTE | 2024-03-24 15:00 | P.PN ---
Subjective Progress Note Date: 03/24/24 78 years old male with past medical history of dementia who [facility] for being combative and little short of breath. Patient was found also to have acute urinary retention of 1600 mL/h. There was suspicion even more. Patient is poor historian given his advanced dementia. He is afebrile but mildly tachycardic Labs was very significant for elevated creatinine 12.2 and potassium 6.2. Rest of labs including CBC and LFT were unremarkable On admission lisinopril 20 mg and metformin 500 mg were held. Patient started also on normal saline 75 mL/h Patient was taking prednisone 50 mg at [facility] for unknown reason, we going to lower his dose to 20 mg with close monitoring. 03/17 Patient looks betterHis creatinine came down to 5.1 and potassium normal 4.5Sodium 148He remains on normal saline 75 mL/h Foster catheter in place with yellow urine 03/18: patient seen and evaluated at bedside, follow-up basic metabolic panel reviewed potassium replaced, nephrology following. Will follow-up on renal profile 03/19 ---- patient seen and evaluated at bedside, patient remains afebrile noted to be hypertensive 164 x 87 remains on room air saturation 96%. Blood work reviewed sodium 138 potassium 4.1, chloride 110 creatinine 1.02 which has significantly improved from 12.7, patient needs physical therapy Occupational Therapy evaluation for placement 03/20/2024 Patient is lying in the bed. Awake alert. Patient does have underlying dementia. Denied any complaints of chest pain or shortness of breath. Foster catheter in place. No cough or sputum production. Laboratory data showed WBC 13.1 hemoglobin 12.1 and platelets 186 BUN 2020 creatinine proved to 1.08 and blood sugar 123. Patient is a Ringer's lactate at 50 cc/h. PT OT is following. 03/21/2024 Patient resting in the bed. Awake alert and mentation is at baseline. Underlying dementia. On room air. Denied any complaints of abdominal pain. No complaints of chest pain or shortness of breath. Patient did have involvement. Still maintained on Foster catheter. Laboratory data showed WBC 13.8 hemoglobin 12.3 and platelets 174, sodium 138 potassium 4.2 chloride 105 bicarb is 24.5 BUN 18.1 and creatinine 1.0. Patient is being continued on IV hydration with Ringer's lactate at 50 cc/hr. 03/22/2024 Patient is resting in the bed. Awake alert and mentation is baseline with underlying dementia. On room air. No complaints of abdominal pain. Patient did have a bowel movement. No cough or sputum production. Able to tolerate oral diet. No cough or sputum production. Patient has been afebrile. Patient has been current on Flomax. Foster catheter is being discontinued today. Laboratory showed WBC 16.7 hemoglobin 13.4 and platelets 212 sodium 139 potassium 3.9 chloride 102 bicarb is 26.5 BUN 18.8 and creatinine 1.0 and glucose 127. Nephrology is on board. 03/23/2024 Patient is resting in the bed. Awake alert. Underlying cognitive impairment. Afebrile. On room air. No cough or sputum production. Denied any abdominal pain. Denied any chest pain or shortness of air. Was patient did require straight catheterization x 2 overnight. Placed on Foster catheter today. Laboratory data showed WBC 14.4 hemoglobin 11.5 and platelets 192 sodium 140 potassium 3.7 chloride 106 bicarb is 24.7 BUN 24.3 and creatinine 1.2 and blood sugar is 76 and calcium 8.4. PHYSICAL EXAMINATION: GENERAL: The patient is alert and oriented x0 , impaired cognition HEENT: Pupils are round and equally reacting to light. EOMI. Normocephalic, atraumatic. PULMONARY: Chest is clear to auscultation, no wheezing or crackles. ABDOMEN: Soft, nontender, nondistended, normoactive bowel sounds. No palpable organomegaly. MUSCULOSKELETAL: No joint swelling or deformity. EXTREMITIES: No cyanosis, clubbing, or pedal edema. NEUROLOGICAL: Gross neurological examination did not reveal any focal deficits. Impaired cognition 03/24/2024 Patient is seen in follow-up today sleeping although arousable, alert fatigues easily and is alert and oriented x 0, well-developed, elderly appearing. Patient retaining requiring indwelling Foster catheter and will continue with Foster for now. Urinalysis obtained showing positive leukocyte esterase and nitrates will start ceftriaxone and also obtain a urine culture and await finalized culture. Patient is currently afebrile and white count is 12 with a hemoglobin that stable at 11.1. Creatinine is 1.1 today with a BUN of 26.2. Will await PT/OT therapy evaluation. Review of systems: Constitutional: No reports of fatigue, fever, or chills Cardiovascular: No reports of chest pain or palpitations Respiratory: No reports of shortness of breath or cough GI: No reports of nausea, vomiting, or diarrhea : No reports of dysuria, was retaining again requiring indwelling Foster catheter Neurovascular: reports of weakness All medications have been reviewed PHYSICAL EXAMINATION: GENERAL: The patient is alert and oriented x0 , impaired cognition HEENT: Pupils are round and equally reacting to light. EOMI. Normocephalic, atraumatic. PULMONARY: Chest is clear to auscultation, no wheezing or crackles. ABDOMEN: Soft, nontender, nondistended, normoactive bowel sounds. No palpable organomegaly. MUSCULOSKELETAL: No joint swelling or deformity. EXTREMITIES: No cyanosis, clubbing, or pedal edema. NEUROLOGICAL: Gross neurological examination did not reveal any focal deficits. Impaired cognition Assessment: Acute kidney injury with ATN likely secondary to obstructive uropathy, improving with indwelling Foster catheter Urinary retention requiring indwelling Foster catheter Acute hyponatremia, improving Possible acute urinary tract infection from indwelling Foster catheter metabolic acidosis from renal failure. Improved. hypertension Dementia, advanced Mild protein calorie malnutrition with a BMI of 17 Leukocytosis GI prophylaxis DVT prophylaxis Plan * Patient failed trial of void. Requiring indwelling Foster catheter to be replaced and will continue. Urinalysis obtained showing positive leukocyte Estrace and will start ceftriaxone and also obtain a urine culture and await finalized results * nephrology following, follow-up on renal profile. * Encouraged oral intake with small frequent meals * continue antihypertensive medication * [facility]one [facility]. Tapered off prednisone. * Continue to monitor WBC count. * Labs and medication were reviewed * DVT prophylaxis: Subcutaneous heparin * GI Prophylaxis: Protonix, will need PT OT evaluation * Overall prognosis is guarded at this time The impression and plan of care has been dictated by Bertha Jones Nurse Practitioner as directed. Dr. Cristiano MD I have performed a history and examination and MDM of this patient, discussed the same with the dictator, and agree with the dictator's assessment and plan as written ,documented as a scribe. Based on total visit time, I have performed more than 50% of the visit. Objective - Vital Signs Vital signs: Vital Signs Temp 97.8 F 03/24/24 07:42 Pulse 68 03/24/24 07:42 Resp 14 03/24/24 07:42 BP 139/91 03/24/24 07:42 Pulse Ox 99 03/24/24 07:42 FiO2 Intake & Output 03/23/24 03/24/24 03/24/24 18:59 06:59 18:59 Intake Total 1020 Output Total 600 500 Balance 420 -500 Weight 57 kg Intake: Oral 1020 Output: Urine 600 500 Other: Voiding Method Indwelling Catheter Indwelling Catheter # Voids 0 # Bowel Movements 1 1 - Labs CBC & Chem 7: 03/24/24 06:21 03/24/24 06:21 Labs: Abnormal Lab Results - Last 24 Hours (Table) 03/23/24 03/23/24 03/23/24 Range/Units 04:16 04:16 12:09 Neutrophils # (Manual) 8.51 H (1.80-7.70) X 10*3/uL Eosinophils # (Manual) 0.43 H (0.04-0.35) X 10*3/uL Basophils # (Manual) 0.14 H (0.00-0.10) X 10*3/uL BUN/Creatinine Ratio 20.25 H (12.00-20.00) Ratio POC Glucose (mg/dL) 186 H (70-110) mg/dL Calcium 8.4 L (8.7-10.3) mg/dL Urine Protein (Negative) Urine Blood (Negative) Ur Leukocyte Esterase (Negative) Urine RBC (0-5) /hpf Urine WBC (0-5) /hpf Triple Phos Crystals (None) /hpf Amorphous Sediment (None) /hpf Urine Bacteria (None) /hpf Hyaline Casts (0-2) /lpf Urine Mucus (None) /hpf 03/23/24 03/23/24 03/23/24 Range/Units 17:07 20:13 23:02 Neutrophils # (Manual) (1.80-7.70) X 10*3/uL Eosinophils # (Manual) (0.04-0.35) X 10*3/uL Basophils # (Manual) (0.00-0.10) X 10*3/uL BUN/Creatinine Ratio (12.00-20.00) Ratio POC Glucose (mg/dL) 122 H 179 H (70-110) mg/dL Calcium (8.7-10.3) mg/dL Urine Protein 2+ H (Negative) Urine Blood Small H (Negative) Ur Leukocyte Esterase Large H (Negative) Urine RBC 8 H (0-5) /hpf Urine WBC >182 H (0-5) /hpf Triple Phos Crystals Many H (None) /hpf Amorphous Sediment Moderate H (None) /hpf Urine Bacteria Occasional H (None) /hpf Hyaline Casts 13 H (0-2) /lpf Urine Mucus Many H (None) /hpf
[2024-03-24 17:19] LABS: Glucose,Whole Blood 159 mg/dL (70-110)
[2024-03-24 20:13] LABS: Glucose,Whole Blood 145 mg/dL (70-110)
[2024-03-25 07:50] LABS: Glucose,Whole Blood 113 mg/dL (70-110)
[2024-03-25 10:42] LABS: Basophils # (A) 0.05 X 10*3/uL (0.00-0.10); Basophils % (A) 0.5 %; Eosinophils # (A) 0.29 X 10*3/uL (0.04-0.35); HCT 35.5 % (39.6-50.0); Lymphocytes # (A) 4.25 X 10*3/uL (0.90-5.00); Lymphocytes % (A) 43.3 %; MCH 29.4 pg (27.0-32.0); MCV 94.9 FL (80.0-97.0); Mean Platelet Volume 11.9 FL (9.5-12.2); Monocytes # (A) 0.75 X 10*3/uL (0.20-1.00); Monocytes % (A) 7.6 %; NRBC Per 100 WBC 0 X 10*3/uL (0.00-0.01); Neutrophils # (A) 4.39 X 10*3/uL (1.80-7.70); Neutrophils % (A) 44.8 %; Platelet Count 154 X 10*3/uL (140-440); RBC 3.74 X 10*6/uL (4.40-5.60); WBC 9.81 X 10*3/uL (4.50-10.00)
[2024-03-25 10:57] LABS: Calcium 8.3 mg/dL (8.7-10.3); Carbon Dioxide 25.6 mmol/L (21.6-31.8); Chloride 106 mmol/L (96-109); Glucose 121 mg/dL (70-110); Potassium 4.1 mmol/L (3.5-5.5); Sodium 139 mmol/L (135-145)
[2024-03-25 12:19] LABS: Glucose,Whole Blood 193 mg/dL (70-110)
[2024-03-25 17:05] LABS: Glucose,Whole Blood 171 mg/dL (70-110)
[2024-03-25 20:17] LABS: Glucose,Whole Blood 154 mg/dL (70-110)
[2024-03-26 07:25] LABS: Glucose,Whole Blood 123 mg/dL (70-110)
--- NOTE | 2024-03-26 07:46 | P.PN ---
Subjective Progress Note Date: 03/25/24 78 years old male with past medical history of dementia who was [facility] from [facility] for being combative and little short of breath. Patient was found also to have acute urinary retention of 1600 mL/h. There was suspicion even more. Patient is poor historian given his advanced dementia. He is afebrile but mildly tachycardic Labs was very significant for elevated creatinine 12.2 and potassium 6.2. Rest of labs including CBC and LFT were unremarkable On admission lisinopril 20 mg and metformin 500 mg were held. Patient started also on normal saline 75 mL/h Patient was taking prednisone 50 mg at [facility] for unknown reason, we going to lower his dose to 20 mg with close monitoring. 03/17 Patient looks betterHis creatinine came down to 5.1 and potassium normal 4.5Sodium 148He remains on normal saline 75 mL/h Foster catheter in place with yellow urine 03/18: patient seen and evaluated at bedside, follow-up basic metabolic panel reviewed potassium replaced, nephrology following. Will follow-up on renal profile 03/19 ---- patient seen and evaluated at bedside, patient remains afebrile noted to be hypertensive 164 x 87 remains on room air saturation 96%. Blood work reviewed sodium 138 potassium 4.1, chloride 110 creatinine 1.02 which has significantly improved from 12.7, patient needs physical therapy Occupational Therapy evaluation for placement 03/20/2024 Patient is lying in the bed. Awake alert. Patient does have underlying dementia. Denied any complaints of chest pain or shortness of breath. Foster catheter in place. No cough or sputum production. Laboratory data showed WBC 13.1 hemoglobin 12.1 and platelets 186 BUN 2020 creatinine proved to 1.08 and blood sugar 123. Patient is a Ringer's lactate at 50 cc/h. PT OT is following. 03/21/2024 Patient resting in the bed. Awake alert and mentation is at baseline. Underlying dementia. On room air. Denied any complaints of abdominal pain. No complaints of chest pain or shortness of breath. Patient did have involvement. Still maintained on Foster catheter. Laboratory data showed WBC 13.8 hemoglobin 12.3 and platelets 174, sodium 138 potassium 4.2 chloride 105 bicarb is 24.5 BUN 18.1 and creatinine 1.0. Patient is being continued on IV hydration with Ringer's lactate at 50 cc/hr. 03/22/2024 Patient is resting in the bed. Awake alert and mentation is baseline with underlying dementia. On room air. No complaints of abdominal pain. Patient did have a bowel movement. No cough or sputum production. Able to tolerate oral diet. No cough or sputum production. Patient has been afebrile. Patient has been current on Flomax. Foster catheter is being discontinued today. Laboratory showed WBC 16.7 hemoglobin 13.4 and platelets 212 sodium 139 potassium 3.9 chloride 102 bicarb is 26.5 BUN 18.8 and creatinine 1.0 and glucose 127. Nephrology is on board. 03/23/2024 Patient is resting in the bed. Awake alert. Underlying cognitive impairment. Afebrile. On room air. No cough or sputum production. Denied any abdominal pain. Denied any chest pain or shortness of air. Was patient did require straight catheterization x 2 overnight. Placed on Foster catheter today. Laboratory data showed WBC 14.4 hemoglobin 11.5 and platelets 192 sodium 140 potassium 3.7 chloride 106 bicarb is 24.7 BUN 24.3 and creatinine 1.2 and blood sugar is 76 and calcium 8.4. PHYSICAL EXAMINATION: GENERAL: The patient is alert and oriented x0 , impaired cognition HEENT: Pupils are round and equally reacting to light. EOMI. Normocephalic, atraumatic. PULMONARY: Chest is clear to auscultation, no wheezing or crackles. ABDOMEN: Soft, nontender, nondistended, normoactive bowel sounds. No palpable organomegaly. MUSCULOSKELETAL: No joint swelling or deformity. EXTREMITIES: No cyanosis, clubbing, or pedal edema. NEUROLOGICAL: Gross neurological examination did not reveal any focal deficits. Impaired cognition 03/24/2024 Patient is seen in follow-up today sleeping although arousable, alert fatigues easily and is alert and oriented x 0, well-developed, elderly appearing. Patient retaining requiring indwelling Foster catheter and will continue with Foster for now. Urinalysis obtained showing positive leukocyte esterase and nitrates will start ceftriaxone and also obtain a urine culture and await finalized culture. Patient is currently afebrile and white count is 12 with a hemoglobin that stable at 11.1. Creatinine is 1.1 today with a BUN of 26.2. Will await PT/OT therapy evaluation. 03/25/2024 Patient is seen in follow-up with no acute overnight issues noted. Patient continues with indwelling Foster catheter and will continue well-maintained on Flomax. Patient awaiting urine cultures and is continued on ceftriaxone and will await cultures. Patient is afebrile and white count has improved. Will have PT/OT therapy evaluate and discuss possible discharge planning early Wednesday or Wednesday. Review of systems: Constitutional: No reports of fatigue, fever, or chills Cardiovascular: No reports of chest pain or palpitations Respiratory: No reports of shortness of breath or cough GI: No reports of nausea, vomiting, or diarrhea : No reports of dysuria, was retaining again requiring indwelling Foster catheter Neurovascular: reports of weakness All medications have been reviewed PHYSICAL EXAMINATION: GENERAL: The patient is asleep although arousable, alert and oriented x0 , impaired cognition HEENT: Pupils are round and equally reacting to light. EOMI. Normocephalic, atraumatic. PULMONARY: Chest is clear to auscultation, no wheezing or crackles. ABDOMEN: Soft, nontender, nondistended, normoactive bowel sounds. No palpable organomegaly. MUSCULOSKELETAL: No joint swelling or deformity. EXTREMITIES: No cyanosis, clubbing, or pedal edema. NEUROLOGICAL: Gross neurological examination did not reveal any focal deficits. Impaired cognition Assessment: Acute kidney injury with ATN likely secondary to obstructive uropathy, improving with indwelling Foster catheter Urinary retention requiring indwelling Foster catheter Acute hyponatremia, improving Possible acute urinary tract infection from indwelling Foster catheter, cultures are negative metabolic acidosis from renal failure. Improved. hypertension Dementia, advanced Mild protein calorie malnutrition with a BMI of 17 Leukocytosis GI prophylaxis DVT prophylaxis Plan * Patient failed trial of void. Requiring indwelling Foster catheter to be replaced and will continue. Urinalysis obtained showing positive leukocyte Estrace and will start ceftriaxone and also obtain a urine culture and await finalized results. Urine culture is negative, continue 1 more day of IV antibiotic * nephrology following, follow-up on renal profile. Follow-up kidney functions and electrolytes. Replace per protocol. * Encouraged oral intake with small frequent meals, continue dysphagia diet * Other home medications reviewed and resumed as appropriate * Patient is on prednisone at [facility]. Tapered off prednisone. * Continue to monitor WBC count. White count has normalized * DVT prophylaxis: Subcutaneous heparin * GI Prophylaxis: Protonix, will need PT OT evaluation and will discuss with case management/social work regarding discharge planning possibly on Wednesday or Wednesday * Overall prognosis is guarded at this time The impression and plan of care has been dictated by Bertha Jones Nurse Ophelia fernandez as directed. Dr. Cristiano MD I have performed a history and examination and MDM of this patient, discussed the same with the dictator, and agree with the dictator's assessment and plan as written ,documented as a scribe. Based on total visit time, I have performed more than 50% of the visit. Objective - Vital Signs Vital signs: Vital Signs Temp 97.3 F L 03/26/24 01:23 Pulse 63 03/26/24 01:23 Resp 17 03/26/24 01:23 BP 151/88 03/26/24 01:23 Pulse Ox 98 03/26/24 01:23 FiO2 Intake & Output 03/25/24 03/26/24 03/26/24 18:59 06:59 18:59 Intake Total 2750 480 Output Total 2200 1200 Balance 550 -1200 480 Weight 57.5 kg Intake: Oral 2750 480 Output: Urine 2200 1200 Straight 1400 Other: Voiding Method Indwelling Catheter Indwelling Catheter # Voids 600 # Bowel Movements 1 0 # Emeses 0 - Labs CBC & Chem 7: 03/25/24 04:23 03/25/24 04:23 Labs: Abnormal Lab Results - Last 24 Hours (Table) 03/25/24 03/25/24 03/25/24 Range/Units 04:23 04:23 07:48 RBC 3.74 L (4.40-5.60) X 10*6/uL Hgb 11.0 L (13.0-17.0) g/dL Hct 35.5 L (39.6-50.0) % MCHC 31.0 L (32.0-37.0) g/dL RDW 16.0 H (11.5-14.5) % Immature Gran # 0.08 H (0.00-0.04) X 10*3/uL BUN/Creatinine Ratio 27.00 H (12.00-20.00) Ratio Glucose 121 H (70-110) mg/dL POC Glucose (mg/dL) 113 H (70-110) mg/dL Calcium 8.3 L (8.7-10.3) mg/dL 03/25/24 03/25/24 03/25/24 Range/Units 12:17 17:04 20:14 RBC (4.40-5.60) X 10*6/uL Hgb (13.0-17.0) g/dL Hct (39.6-50.0) % MCHC (32.0-37.0) g/dL RDW (11.5-14.5) % Immature Gran # (0.00-0.04) X 10*3/uL BUN/Creatinine Ratio (.00-.) Ratio Glucose (70-110) mg/dL POC Glucose (mg/dL) 193 H 171 H 154 H (70-110) mg/dL Calcium (8.7-10.3) mg/dL 03/26/24 Range/Units 07:24 RBC (4.40-5.60) X 10*6/uL Hgb (13.0-17.0) g/dL Hct (39.6-50.0) % MCHC (32.0-37.0) g/dL RDW (11.5-14.5) % Immature Gran # (0.00-0.04) X 10*3/uL BUN/Creatinine Ratio (.00-.00) Ratio Glucose (70-110) mg/dL POC Glucose (mg/dL) 123 H (70-110) mg/dL Calcium (8.7-10.3) mg/dL Microbiology - Last 24 Hours (Table) 03/24/24 11:45 Urine Culture - Final Urine,Catheterized
[2024-03-26 12:15] LABS: Glucose,Whole Blood 168 mg/dL (70-110)
[2024-03-26 17:05] LABS: Glucose,Whole Blood 112 mg/dL (70-110)
[2024-03-26 20:37] LABS: Glucose,Whole Blood 195 mg/dL (70-110)
--- NOTE | 2024-03-26 21:01 | P.PN ---
Subjective Progress Note Date: 03/26/24 78 years old male with past medical history of dementia who was sent from [facility] for being combative and little short of breath. Patient was found also to have acute urinary retention of 1600 mL/h. There was suspicion even more. Patient is poor historian given his advanced dementia. He is afebrile but mildly tachycardic Labs was very significant for elevated creatinine 12.2 and potassium 6.2. Rest of labs including CBC and LFT were unremarkable On admission lisinopril 20 mg and metformin 500 mg were held. Patient started also on normal saline 75 mL/h Patient was taking prednisone 50 mg at detention for unknown reason, we going to lower his dose to 20 mg with close monitoring. 03/17 Patient looks betterHis creatinine came down to 5.1 and potassium normal 4.5Sodium 148He remains on normal saline 75 mL/h Foster catheter in place with yellow urine 03/18: patient seen and evaluated at bedside, follow-up basic metabolic panel reviewed potassium replaced, nephrology following. Will follow-up on renal profile 03/19 ---- patient seen and evaluated at bedside, patient remains afebrile noted to be hypertensive 164 x 87 remains on room air saturation 96%. Blood work reviewed sodium 138 potassium 4.1, chloride 110 creatinine 1.02 which has significantly improved from 12.7, patient needs physical therapy Occupational Therapy evaluation for placement 03/20/2024 Patient is lying in the bed. Awake alert. Patient does have underlying dementia. Denied any complaints of chest pain or shortness of breath. Foster catheter in place. No cough or sputum production. Laboratory data showed WBC 13.1 hemoglobin 12.1 and platelets 186 BUN 2020 creatinine proved to 1.08 and blood sugar 123. Patient is a Ringer's lactate at 50 cc/h. PT OT is following. 03/21/2024 Patient resting in the bed. Awake alert and mentation is at baseline. Underlying dementia. On room air. Denied any complaints of abdominal pain. No complaints of chest pain or shortness of breath. Patient did have involvement. Still maintained on Foster catheter. Laboratory data showed WBC 13.8 hemoglobin 12.3 and platelets 174, sodium 138 potassium 4.2 chloride 105 bicarb is 24.5 BUN 18.1 and creatinine 1.0. Patient is being continued on IV hydration with Ringer's lactate at 50 cc/hr. 03/22/2024 Patient is resting in the bed. Awake alert and mentation is baseline with underlying dementia. On room air. No complaints of abdominal pain. Patient did have a bowel movement. No cough or sputum production. Able to tolerate oral diet. No cough or sputum production. Patient has been afebrile. Patient has been current on Flomax. Foster catheter is being discontinued today. Laboratory showed WBC 16.7 hemoglobin 13.4 and platelets 212 sodium 139 potassium 3.9 chloride 102 bicarb is 26.5 BUN 18.8 and creatinine 1.0 and glucose 127. Nephrology is on board. 03/23/2024 Patient is resting in the bed. Awake alert. Underlying cognitive impairment. Afebrile. On room air. No cough or sputum production. Denied any abdominal pain. Denied any chest pain or shortness of air. Was patient did require straight catheterization x 2 overnight. Placed on Foster catheter today. Laboratory data showed WBC 14.4 hemoglobin 11.5 and platelets 192 sodium 140 potassium 3.7 chloride 106 bicarb is 24.7 BUN 24.3 and creatinine 1.2 and blood sugar is 76 and calcium 8.4. PHYSICAL EXAMINATION: GENERAL: The patient is alert and oriented x0 , impaired cognition HEENT: Pupils are round and equally reacting to light. EOMI. Normocephalic, atraumatic. PULMONARY: Chest is clear to auscultation, no wheezing or crackles. ABDOMEN: Soft, nontender, nondistended, normoactive bowel sounds. No palpable organomegaly. MUSCULOSKELETAL: No joint swelling or deformity. EXTREMITIES: No cyanosis, clubbing, or pedal edema. NEUROLOGICAL: Gross neurological examination did not reveal any focal deficits. Impaired cognition 03/24/2024 Patient is seen in follow-up today sleeping although arousable, alert fatigues easily and is alert and oriented x 0, well-developed, elderly appearing. Patient retaining requiring indwelling Foster catheter and will continue with Foster for now. Urinalysis obtained showing positive leukocyte esterase and nitrates will start ceftriaxone and also obtain a urine culture and await finalized culture. Patient is currently afebrile and white count is 12 with a hemoglobin that stable at 11.1. Creatinine is 1.1 today with a BUN of 26.2. Will await PT/OT therapy evaluation. 03/25/2024 Patient is seen in follow-up with no acute overnight issues noted. Patient continues with indwelling Foster catheter and will continue well-maintained on Flomax. Patient awaiting urine cultures and is continued on ceftriaxone and will await cultures. Patient is afebrile and white count has improved. Will have PT/OT therapy evaluate and discuss possible discharge planning early Wednesday or Wednesday. 03/26/2024 Patient is seen in follow-up today continues with indwelling Foster catheter and will continue. Urine culture is negative and will finish ceftriaxone on discharge. Plan is for returning to [facility]. Will discuss with case management/social work tomorrow morning regarding discharge planning. Patient is afebrile and white count had normalized. Review of systems: Constitutional: No reports of fatigue, fever, or chills Cardiovascular: No reports of chest pain or palpitations Respiratory: No reports of shortness of breath or cough GI: No reports of nausea, vomiting, or diarrhea : No reports of dysuria, was retaining again requiring indwelling Foster catheter Neurovascular: reports of weakness All medications have been reviewed PHYSICAL EXAMINATION: GENERAL: The patient is asleep although arousable, alert and oriented x0 , impaired cognition HEENT: Pupils are round and equally reacting to light. EOMI. Normocephalic, atraumatic. PULMONARY: Chest is clear to auscultation, no wheezing or crackles. ABDOMEN: Soft, nontender, nondistended, normoactive bowel sounds. No palpable organomegaly. MUSCULOSKELETAL: No joint swelling or deformity. EXTREMITIES: No cyanosis, clubbing, or pedal edema. NEUROLOGICAL: Gross neurological examination did not reveal any focal deficits. Impaired cognition Assessment: Acute kidney injury with ATN likely secondary to obstructive uropathy, improving with indwelling Foster catheter Urinary retention requiring indwelling Foster catheter Acute hyponatremia, improving Possible acute urinary tract infection from indwelling Foster catheter, cultures are negative metabolic acidosis from renal failure. Improved. hypertension Dementia, advanced Mild protein calorie malnutrition with a BMI of 17 Leukocytosis GI prophylaxis DVT prophylaxis Plan * Patient failed trial of void. Requiring indwelling Foster catheter to be replaced and will continue. Urinalysis obtained showing positive leukocyte Estrace and will start ceftriaxone and also obtain a urine culture and await finalized results. Urine culture is negative, continue 1 more day of IV antibiotic * nephrology following, follow-up on renal profile. Follow-up kidney functions and electrolytes. Replace per protocol. * Encouraged oral intake with small frequent meals, continue dysphagia diet with aspiration precautions and head of the bed elevated 30 to 45 degrees. * Other home medications reviewed and resumed as appropriate * Patient is on prednisone at detention. Tapered off prednisone. * Continue to monitor WBC count. White count has normalized * DVT prophylaxis: Subcutaneous heparin * GI Prophylaxis: Protonix, will need PT OT evaluation and will discuss with case management/social work regarding discharge planning possibly on Wednesday or Wednesday * Overall prognosis is guarded at this time The impression and plan of care has been dictated by Bertha Jones, Nurse Practitioner as directed. Dr. Cristiano MD I have performed a history and examination and MDM of this patient, discussed the same with the dictator, and agree with the dictator's assessment and plan as written ,documented as a scribe. Based on total visit time, I have performed more than 50% of the visit. Objective - Vital Signs Vital signs: Vital Signs Temp 97.3 F L 03/26/24 01:23 Pulse 63 03/26/24 01:23 Resp 17 03/26/24 01:23 BP 151/88 03/26/24 01:23 Pulse Ox 98 03/26/24 01:23 FiO2 Intake & Output 03/25/24 03/26/24 03/26/24 18:59 06:59 18:59 Intake Total 2750 480 Output Total 2200 1200 Balance 550 -1200 480 Weight 57.5 kg Intake: Oral 2750 480 Output: Urine 2200 1200 Straight 1400 Other: Voiding Method Indwelling Catheter Indwelling Catheter # Voids 600 # Bowel Movements 1 0 # Emeses 0 - Labs CBC & Chem 7: 03/25/24 04:23 03/25/24 04:23 Labs: Abnormal Lab Results - Last 24 Hours (Table) 03/25/24 03/25/24 03/25/24 Range/Units 04:23 04:23 07:48 RBC 3.74 L (4.40-5.60) X 10*6/uL Hgb 11.0 L (13.0-17.0) g/dL Hct 35.5 L (39.6-50.0) % MCHC 31.0 L (32.0-37.0) g/dL RDW 16.0 H (11.5-14.5) % Immature Gran # 0.08 H (0.00-0.04) X 10*3/uL BUN/Creatinine Ratio 27.00 H (12.00-20.00) Ratio Glucose 121 H (70-110) mg/dL POC Glucose (mg/dL) 113 H (70-110) mg/dL Calcium 8.3 L (8.7-10.3) mg/dL 03/25/24 03/25/24 03/25/24 Range/Units 12:17 17:04 20:14 RBC (4.40-5.60) X 10*6/uL Hgb (13.0-17.0) g/dL Hct (39.6-50.0) % MCHC (32.0-37.0) g/dL RDW (11.5-14.5) % Immature Gran # (0.00-0.04) X 10*3/uL BUN/Creatinine Ratio (12.00-20.00) Ratio Glucose (70-110) mg/dL POC Glucose (mg/dL) 193 H 171 H 154 H (70-110) mg/dL Calcium (8.7-10.3) mg/dL 03/26/24 Range/Units 07:24 RBC (4.40-5.60) X 10*6/uL Hgb (13.0-17.0) g/dL Hct (39.6-50.0) % MCHC (32.0-37.0) g/dL RDW (11.5-14.5) % Immature Gran # (0.00-0.04) X 10*3/uL BUN/Creatinine Ratio (12.00-20.00) Ratio Glucose (70-110) mg/dL POC Glucose (mg/dL) 123 H (70-110) mg/dL Calcium (8.7-10.3) mg/dL Microbiology - Last 24 Hours (Table) 03/24/24 11:45 Urine Culture - Final Urine,Catheterized
[2024-03-26] MEDS: ZINC OXIDE PASTE (Z-GUARD) 1 APPLIC TOPICAL PRN (22:13)
[2024-03-27 07:38] LABS: Glucose,Whole Blood 106 mg/dL (70-110)
[2024-03-27 07:52] VITALS: RESP 16
[2024-03-27 12:24] LABS: Glucose,Whole Blood 139 mg/dL (70-110)
[2024-03-27 17:34] LABS: Glucose,Whole Blood 120 mg/dL (70-110)
[2024-03-27 20:22] LABS: Glucose,Whole Blood 188 mg/dL (70-110)
--- NOTE | 2024-03-27 21:04 | P.PN ---
Subjective This is a pleasant 78 years old male with past medical history of dementia who was sent from [facility] for being combative and little short of breath. Patient was found also to have acute urinary retention of 1600 mL/h. There was suspicion even more. Patient is poor historian given his advanced dementia. He is afebrile but mildly tachycardic Labs was very significant for elevated creatinine 12.2 and potassium 6.2. Rest of labs including CBC and LFT were unremarkable On admission lisinopril 20 mg and metformin 500 mg were held. Patient started also on normal saline 75 mL/h Patient was taking prednisone 50 mg at [facility] for unknown reason, we going to lower his dose to 20 mg with close monitoring. 03/16 Patient looks better His creatinine came down to 5.1 and potassium normal 4.5 Sodium 148 He remains on normal saline 75 mL/h Fostre catheter in place with yellow urine 03/27 resuming the care of the patient today Patient comfortable at baseline No new complaint Foster catheter in place Pending placement Objective - Vital Signs Vital signs: Vital Signs Temp 98.3 F 03/27/24 20:00 Pulse 85 03/27/24 20:00 Resp 16 03/27/24 20:00 BP 137/89 03/27/24 20:00 Pulse Ox 95 03/27/24 20:00 FiO2 Intake & Output 03/27/24 03/27/24 03/28/24 06:59 18:59 06:59 Intake Total 600 260 Output Total 700 1000 Balance -100 -740 Weight 63.5 kg Intake: Intake, IV Titration 600 Amount Lactated Ringers 1,000 ml 600 @ 50 mls/hr IV .Q20H [facility] Rx#:[id number] Oral 260 Output: Urine 700 1000 Other: Voiding Method Indwelling Catheter Indwelling Catheter Indwelling Catheter # Bowel Movements 1 - Exam -GENERAL: The patient is awake but confused pleasantly at baseline, not in any acute distress. Well developed, well nourished. HEENT: Pupils are round and equally reacting to light. EOMI. No scleral icterus. No conjunctival pallor. Normocephalic, atraumatic. No pharyngeal erythema. No thyromegaly. CARDIOVASCULAR: S1 and S2 present. No murmurs, rubs, or gallops. PULMONARY: Chest is clear to auscultation, no wheezing , no crackles. ABDOMEN: Soft, nontender, nondistended, normoactive bowel sounds. No palpable organomegaly. MUSCULOSKELETAL: No joint swelling or deformity. EXTREMITIES: No cyanosis, clubbing, or pedal edema. NEUROLOGICAL: Gross neurological examination did not reveal any focal deficits. SKIN: No rashes. no petechiae. - Labs CBC & Chem 7: 03/25/24 04:23 03/25/24 04:23 Labs: Abnormal Lab Results - Last 24 Hours (Table) 03/27/24 03/27/24 03/27/24 Range/Units 12:12 17:32 20:20 POC Glucose (mg/dL) 139 H 120 H 188 H (70-110) mg/dL Assessment and Plan Assessment: Acute kidney injury with hyperkalemia secondary to obstructive uropathy Acute urinary retention status post Foster catheter Dementia, advanced Plan: Foster catheter Increase Flomax to twice daily Nephrology team consult No IV fluid Taper steroid of Continue with antihypertensive medication Labs and medication were reviewed.. Continue same treatment. Continue with symptomatic treatment. Resume home medication. Monitor labs and vitals. DVT and GI prophylaxis. Further recommendations as per clinical course of the patient DVT prophylaxis: Subcutaneous heparin GI Prophylaxis: Protonix Prognosis is guarded
[2024-03-28 07:06] LABS: Glucose,Whole Blood 104 mg/dL (70-110)
[2024-03-28 11:45] VITALS: BP 147/84; PULSE 63; TEMP 97.8
[2024-03-28 12:13] LABS: Glucose,Whole Blood 128 mg/dL (70-110)
--- NOTE | 2024-03-28 12:51 | P.DS ---
Providers Date of admission: 03/15/24 15:58 Attending physician: Marcin Mcknight MD Consults: 03/15/24 15:58 Consult Physician Urgent Consulting Provider: Laura Luna Consult Reason/Comments: Acute renal failure Do you want consulting provider notified?: Yes Primary care physician: Jenn Clark DO Hospital Course: Diagnoses: Acute kidney injury with hyperkalemia secondary to obstructive uropathy Acute urinary retention status post Foster catheter Dementia, advanced Acute urinary tract infection, finishes treatment Iatrogenic induced diabetes Hospital course: This is a pleasant 78 years old male with past medical history of dementia who was sent from senior care for being combative and little short of breath. Patient was found also to have acute urinary retention of 1600 mL/h. There was suspicion even more. Patient is poor historian given his advanced dementia. Patient on admission had high creatinine at 12. He has evidence of obstructive uropathy. This improved with placement of Ofster catheter creatinine down to 1.0. Patient evaluated by engineering intern will sign of the case Also patient was on a prednisone 50 mg which was stopped in the hospital after it was tapered off. His sugar controlled while he is off metformin so it was held and patient can continue with insulin sliding scale Lisinopril was held upon admission because of acute kidney injury, his blood pressure is slightly elevated, therefore we added Norvasc 5 mg to his home regimen of metoprolol 25 mg patient is eating and drinking well. Awake and mentation at baseline, patient is pleasantly confused related to his dementia, sometimes gets agitated Patient denies chest pain or dyspnea no other new complaint Problems and management plan were discussed with the patient and he verbalized understanding and acceptance Patient was found stable and can be discharged home in guarded prognosis however he needs follow-up as an outpatient. Patient was instructed to follow up with PCP within one week and patient agrees Physical exam Gen: patient is a AAOx3, no distress CVS: S1-S2, RRR, no murmur Lungs: B/L CTA, no wheezing Abdomen: soft, no distention, no tenderness, positive bowel sounds Extremity: no leg edema or induration Time spent more than 35 minutes Plan - Discharge Summary New Discharge Prescriptions: New amLODIPine [Norvasc] 5 mg PO DAILY tab INSULIN ASPART (NovoLOG) [NovoLOG (formulary)] 0 unit SQ ACHS each Continue Sodium Chloride 0.9% Irrigatio [Saline 0.9% Irrigation Bottle] 1 dose IRRIGATION Q12H Promethazine HCl 12.5 mg PO Q6H PRN PRN Reason: Nausea And Vomiting Multivitamins, Thera [Multivitamin (formulary)] 1 tab PO DAILY Magnesium Hydroxide [Milk of Magnesia] 2,400 mg PO DIRECTED PRN PRN Reason: No BM for 2 days Metoprolol Succinate (ER) [Toprol XL] 25 mg PO DAILY Melatonin 5 mg PO HS Tamsulosin [Flomax] 0.4 mg PO HS Folic Acid 0.8 mg PO DAILY Cyanocobalamin [Vitamin B-12] 500 mcg PO DAILY Citalopram Hydrobromide [CeleXA] 20 mg PO DAILY Acetaminophen Tab [Tylenol] 500 mg PO Q6H PRN PRN Reason: Fever And/ Or Pain Pantoprazole [Protonix] 40 mg PO DAILY Ketotifen 0.025% Ophth Soln [Zaditor] 1 drop BOTH EYES BID Divalproex Sodium [Depakote] 125 mg PO BID Calcium Carbonate/Vitamin D3 [Calcium 600 mg-Vit D3 5 mcg (200 unit)] 1 tab PO DAILY busPIRone HCl [Buspar] 10 mg PO BID Discontinued Levofloxacin [Levaquin] 750 mg PO DAILY predniSONE 50 mg PO DAILY metFORMIN HCL [metFORMIN HCL ER] 750 mg PO DAILY lisinopriL [Zestril] 20 mg PO DAILY Loratadine 10 mg PO DAILY Discharge Medication List Acetaminophen Tab [Tylenol] 500 mg PO Q6H PRN 03/15/24 [History] Calcium Carbonate/Vitamin D3 [Calcium 600 mg-Vit D3 5 mcg (200 unit)] 1 tab PO DAILY 03/15/24 [History] Citalopram Hydrobromide [CeleXA] 20 mg PO DAILY 03/15/24 [History] Cyanocobalamin [Vitamin B-12] 500 mcg PO DAILY 03/15/24 [History] Divalproex Sodium [Depakote] 125 mg PO BID 03/15/24 [History] Folic Acid 0.8 mg PO DAILY 03/15/24 [History] Ketotifen 0.025% Ophth Soln [Zaditor] 1 drop BOTH EYES BID 03/15/24 [History] Magnesium Hydroxide [Milk of Magnesia] 2,400 mg PO DIRECTED PRN 03/15/24 [History] Melatonin 5 mg PO HS 03/15/24 [History] Metoprolol Succinate (ER) [Toprol XL] 25 mg PO DAILY 03/15/24 [History] Multivitamins, Thera [Multivitamin (formulary)] 1 tab PO DAILY 03/15/24 [History] Pantoprazole [Protonix] 40 mg PO DAILY 03/15/24 [History] Promethazine HCl 12.5 mg PO Q6H PRN 03/15/24 [History] Sodium Chloride 0.9% Irrigatio [Saline 0.9% Irrigation Bottle] 1 dose IRRIGATION Q12H 03/15/24 [History] Tamsulosin [Flomax] 0.4 mg PO HS 03/15/24 [History] busPIRone HCl [Buspar] 10 mg PO BID 03/15/24 [History] INSULIN ASPART (NovoLOG) [NovoLOG (formulary)] 0 unit SQ ACHS each 03/28/24 [Rx] amLODIPine [Norvasc] 5 mg PO DAILY tab 03/28/24 [Rx] Follow up Appointment(s)/Referral(s): Jenn Clark DO [Primary Care Provider] - 1-2 days Activity/Diet/Wound Care/Special Instructions: Heart healthy low carbohydrate diet 1600 kcal/day Activity as tolerated
[2024-03-28] MEDS: amLODIPine 5 MG TAB PO SCH (13:12)
== END 2024-03-28 13:57 | DRG 698 ==
LOC: EC 13:00 → EEVIPCON 15:58 → 3SCARD 15:58 → 5NMEDONC 03-20 09:31
PROVIDERS: ADMIT Internal Medicine; ATTEND Internal Medicine
DX: N13.9 Obstructive and reflux uropathy, unspecified (principal); N17.0 Acute kidney failure with tubular necrosis; E87.0 Hyperosmolality and hypernatremia; E87.1 Hypo-osmolality and hyponatremia; E87.20 Acidosis, unspecified; E44.1 Mild protein-calorie malnutrition; Z68.1 Body mass index [BMI] 19.9 or less, adult; E87.5 Hyperkalemia; F03.90 Unspecified dementia, unspecified severity, without behavioral disturbance, psychotic disturbance, mood disturbance, and anxiety; E11.9 Type 2 diabetes mellitus without complications; I10 Essential (primary) hypertension; F03.C0 Unspecified dementia, severe, without behavioral disturbance, psychotic disturbance, mood disturbance, and anxiety; Z79.4 Long term (current) use of insulin; Z79.899 Other long term (current) drug therapy; Z79.84 Long term (current) use of oral hypoglycemic drugs; F17.200 Nicotine dependence, unspecified, uncomplicated
CPT/HCPCS: 36415; 76770; 80048; 80053; 81001; 83036; 83735; 84132; 85025; 85027; 87086; 93005; 96361; 96374; 96375; 99291

== ENCOUNTER 2024-03-28 20:13 | Observation (INO) | payer MEDICARE ==
--- NOTE | 2024-03-28 20:52 | ED ---
Nausea/Vomiting/Diarrhea HPI - General Chief complaint: Nausea/Vomiting/Diarrhea Stated complaint: NVD Time Seen by Provider: 03/28/24 20:51 Source: EMS Mode of arrival: EMS Limitations: altered mental status - History of Present Illness Initial comments: This is a 78-year-old male with history of advanced dementia presenting to the ER for vomiting. Patient was discharged today after admission for acute urinary retention with hyperkalemia secondary to obstructive uropathy. Patient was discharged back to alf today. [facility] staff reports patient had 4-5 episodes of emesis today. Patient denies any current symptoms. Denies chest pain, abdominal pain, headache. He is not on blood thinners. - Related Data Home Medications Medication Instructions Recorded Confirmed Acetaminophen Tab [Tylenol] 500 mg PO Q6H PRN 03/15/24 03/15/24 Calcium Carbonate/Vitamin D3 1 tab PO DAILY 03/15/24 03/15/24 [Calcium 600 mg-Vit D3 5 mcg (200 unit)] Citalopram Hydrobromide [CeleXA] 20 mg PO DAILY 03/15/24 03/15/24 Cyanocobalamin [Vitamin B-12] 500 mcg PO DAILY 03/15/24 03/15/24 Divalproex Sodium [Depakote] 125 mg PO BID 03/15/24 03/15/24 Folic Acid 0.8 mg PO DAILY 03/15/24 03/15/24 Ketotifen 0.025% Ophth Soln 1 drop BOTH EYES BID 03/15/24 03/15/24 [Zaditor] Magnesium Hydroxide [Milk of 2,400 mg PO DIRECTED PRN 03/15/24 03/15/24 Magnesia] Melatonin 5 mg PO HS 03/15/24 03/15/24 Metoprolol Succinate (ER) [Toprol 25 mg PO DAILY 03/15/24 03/15/24 XL] Multivitamins, Thera [Multivitamin 1 tab PO DAILY 03/15/24 03/15/24 (formulary)] Pantoprazole [Protonix] 40 mg PO DAILY 03/15/24 03/15/24 Promethazine HCl 12.5 mg PO Q6H PRN 03/15/24 03/15/24 Sodium Chloride 0.9% Irrigatio 1 dose IRRIGATION Q12H 03/15/24 03/15/24 [Saline 0.9% Irrigation Bottle] Tamsulosin [Flomax] 0.4 mg PO HS 03/15/24 03/15/24 busPIRone HCl [Buspar] 10 mg PO BID 03/15/24 03/15/24 Previous Rx's Medication Instructions Recorded INSULIN ASPART (NovoLOG) [NovoLOG 0 unit SQ ACHS each 03/28/24 (formulary)] amLODIPine [Norvasc] 5 mg PO DAILY tab 03/28/24 Allergies Allergy/AdvReac Type Severity Reaction Status Date / Time No Known Allergies Allergy Verified 03/28/24 20:32 Review of Systems ROS Statement: Those systems with pertinent positive or pertinent negative responses have been documented in the HPI. ROS Other: All systems not noted in ROS Statement are negative. Past Medical History Past Medical History: CVA/TIA, Dementia, Diabetes Mellitus History of Any Multi-Drug Resistant Organisms: None Reported Additional Past Surgical History / Comment(s): surgery as a child Smoking Status: Former smoker Past Alcohol Use History: Rare Past Drug Use History: None Reported General Exam General appearance: alert, in no apparent distress, other (A&Ox2) Head exam: Present: atraumatic, normocephalic, normal inspection Eye exam: Present: normal appearance, PERRL, EOMI. Absent: scleral icterus, conjunctival injection, periorbital swelling ENT exam: Present: normal exam, mucous membranes moist Respiratory exam: Present: normal lung sounds bilaterally. Absent: respiratory distress, wheezes, rales, rhonchi, stridor Cardiovascular Exam: Present: tachycardia, irregular rhythm, normal heart so unds. Absent: systolic murmur, diastolic murmur, rubs, gallop, clicks GI/Abdominal exam: Present: soft, normal bowel sounds. Absent: distended, tenderness, guarding, rebound, rigid Neurological exam: Present: alert. Absent: oriented X3 (oriented x2) Psychiatric exam: Present: normal affect, normal mood Skin exam: Present: warm, dry, intact, normal color. Absent: rash Course Vital Signs 03/28/24 03/28/24 03/28/24 20:23 22:51 23:46 Temperature 100.5 F H 100.5 F H Pulse Rate 110 H 116 H 98 Respiratory 18 18 18 Rate Blood Pressure 145/94 128/82 86/62 O2 Sat by Pulse 98 98 99 Oximetry 03/29/24 03/29/24 00:14 00:21 Temperature 98.5 F Pulse Rate 97 85 Respiratory 17 16 Rate Blood Pressure 79/58 86/56 O2 Sat by Pulse 97 98 Oximetry Medical Decision Making - Medical Decision Making Was pt. sent in by a medical professional or institution (, PA, T[employer], urgent care, hospital, or alf...) When possible be specific @ -Sent by alf for vomiting Did you speak to anyone other than the patient for history (EMS, parent, family, police, friend...)? What history was obtained from this source @ -EMS provided history Did you review nursing and triage notes (agree or disagree)? Why? @ -I reviewed and agree with nursing and triage notes Were old charts reviewed (outside hosp., previous admission, EMS record, old EKG, old radiological studies, urgent care reports/EKG's, alf records)? Report findings @ -No old charts were reviewed Differential Diagnosis (chest pain, altered mental status, abdominal pain women, abdominal pain men, vaginal bleeding, weakness, fever, dyspnea, syncope, headache, dizziness, GI bleed, back pain, seizure, CVA, palpatations, mental health, musculoskeletal)? @ -Differential Fever: Pneumonia, viral URI, endocarditis, myocarditis, pericarditis, otitis, sinusitis, peritonsillar Abscess, retropharyngeal Abscess, epiglottitis, peritonitis, appendicitis, Corrina cystitis, diverticulitis, hepatitis, colitis, UTI, PID, TOA, pyelonephritis, prostatitis, epididymitis, meningitis, encephalitis, pulmonary embolism, CVA, thyroid storm, pancreatitis, adrenal crisis, cavernous sinus thrombosis, this is not meant to be an all-inclusive list. EKG interpreted by me (3pts min.). @ -As above X-rays interpreted by me (1pt min.). @ -Chest x-ray reveals indeterminant and lucency in the lateral right lung could reflect skinfold or small pneumothorax CT interpreted by me (1pt min.). @ -None done U/S interpreted by me (1pt. min.). @ -None done What testing was considered but not performed or refused? (CT, X-rays, U/S, labs)? Why? @ -None What meds were considered but not given or refused? Why? @ -None Did you discuss the management of the patient with other professionals (professionals i.e. DrCasandra, PA, [employer], lab, RT, psych nurse, social security assessor, patient care technician instructor, teacher, senior loan officer, caser up)? Give summary @ -No Was smoking cessation discussed for >3mins.? @ -No Was critical care preformed (if so, how long)? @ -No Were there social determinants of health that impacted care today? How? (Homelessness, low income, unemployed, alcoholism, drug addiction, transportation, low edu. Level, literacy, decrease access to med. care, penitentiary, rehab)? @ -No Was there de-escalation of care discussed even if they declined (Discuss DNR or withdrawal of care, Hospice)? DNR status @ -No What co-morbidities impacted this encounter? (DM, HTN, Smoking, COPD, CAD, Cancer, CVA, ARF, Chemo, Hep., AIDS, mental health diagnosis, sleep apnea, morbid obesity)? @ -None Was patient admitted / discharged? Hospital course, mention meds given and route, prescriptions, significant lab abnormalities, going to OR and other pertinent info. @ -Admitted. This is a 78-year-old male with history of advanced dementia presenting for vomiting x 1 day. Patient was discharged today after admission for urinary retention. Patient has Foster placed. Patient is febrile at 100.5 F and tachycardic at 110 bpm. Blood pressure stable at 145/94. EKG reveals atrial fibrillation with RVR. Patient is not on thinners. Patient was given one-time dose of Cardizem, Eliquis, Zofran, antipyretics. Blood cultures taken. Lab work remarkable for white blood cell count 11 with left shift, platelets 76, magnesium 1.5. Chest x-ray reveals indeterminate in lucency in lateral right lung. Patient is negative for COVID, influenza, and RSV. Upon reevaluation, heart rate decreases to 98 bpm and blood pressure decreases to 86/62. Patient was started on fluid bolus. Urinalysis pending at time of admission. IV antibiotics started to cover for UTI. Patient was also started on magnesium. Patient was admitted to [facility] for atrial fibrillation with RVR and fever likely secondary to UTI. Case was discussed with my ED attending Dr. Joanie edouard. Undiagnosed new problem with uncertain prognosis? @ -No Drug Therapy requiring intensive monitoring for toxicity (Heparin, Nitro, Insulin, Cardizem)? @ -No Were any procedures done? @ -No Diagnosis/symptom? @ -Atrial fibrillation with RVR, fever Acute, or Chronic, or Acute on Chronic? @ -Acute Uncomplicated (without systemic symptoms) or Complicated (systemic symptoms)? @ -Complicated Side effects of treatment? @ -No Exacerbation, Progression, or Severe Exacerbation? @ -No Poses a threat to life or bodily function? How? (Chest pain, USA, NC, pneumonia, PE, COPD, DKA, ARF, appy, cholecystitis, CVA, Diverticulitis, Homicidal, Suicidal, threat to staff... and all critical care pts) @ -Yes - Lab Data Result diagrams: 03/28/24 22:50 03/28/24 22:50 Lab Results 03/28/24 03/28/24 03/28/24 Range/Units 22:50 22:50 22:50 WBC 11.2 H (3.8-10.6) k/uL RBC 4.27 L (4.30-5.90) m/uL Hgb 13.2 (13.0-17.5) gm/dL Hct 39.7 (39.0-53.0) % MCV 92.9 (80.0-100.0) fL MCH 30.8 (25.0-35.0) pg MCHC 33.2 (31.0-37.0) g/dL RDW 16.0 H (11.5-15.5) % Plt Count 76 L D (150-450) k/uL MPV 9.2 Neutrophils % 89 % Lymphocytes % 7 % Monocytes % 3 % Eosinophils % 1 % Basophils % 0 % Neutrophils # 9.9 H (1.3-7.7) k/uL Lymphocytes # 0.8 L (1.0-4.8) k/uL Monocytes # 0.3 (0-1.0) k/uL Eosinophils # 0.1 (0-0.7) k/uL Basophils # 0.0 (0-0.2) k/uL Sodium 136 L (137-145) mmol/L Potassium 4.4 (3.5-5.1) mmol/L Chloride 104 (98-107) mmol/L Carbon Dioxide 26 (22-30) mmol/L Anion Gap 6 mmol/L BUN 25 H (9-20) mg/dL Creatinine 0.97 (0.66-1.25) mg/dL Est GFR (CKD-EPI)AfAm 87 (>60 ml/min/1.73 sqM) Est GFR (CKD-EPI)NonAf 76 (>60 ml/min/1.73 sqM) Glucose 137 H (74-99) mg/dL Plasma Lactic Acid Ian 1.7 (0.7-2.0) mmol/L Calcium 8.7 (8.4-10.2) mg/dL Magnesium 1.5 L (1.6-2.3) mg/dL Total Bilirubin 0.6 (0.2-1.3) mg/dL AST 29 (17-59) U/L ALT 28 (4-49) U/L Alkaline Phosphatase 115 (38-126) U/L Troponin I (0.000-0.034) ng/mL Total Protein 5.9 L (6.3-8.2) g/dL Albumin 3.2 L (3.5-5.0) g/dL Influenza Type A (PCR) (Not Detectd) Influenza Type B (PCR) (Not Detectd) RSV (PCR) (Not Detectd) SARS-CoV-2 (PCR) (Not Detectd) 03/28/24 03/28/24 Range/Units 22:50 22:50 WBC (3.8-10.6) k/uL RBC (4.30-5.90) m/uL Hgb (13.0-17.5) gm/dL Hct (39.0-53.0) % MCV (80.0-100.0) fL MCH (25.0-35.0) pg MCHC (31.0-37.0) g/dL RDW (11.5-15.5) % Plt Count (150-450) k/uL MPV Neutrophils % % Lymphocytes % % Monocytes % % Eosinophils % % Basophils % % Neutrophils # (1.3-7.7) k/uL Lymphocytes # (1.0-4.8) k/uL Monocytes # (0-1.0) k/uL Eosinophils # (0-0.7) k/uL Basophils # (0-0.2) k/uL Sodium (137-145) mmol/L Potassium (3.5-5.1) mmol/L Chloride (98-107) mmol/L Carbon Dioxide (22-30) mmol/L Anion Gap mmol/L BUN (9-20) mg/dL Creatinine (0.66-1.25) mg/dL Est GFR (CKD-EPI)AfAm (>60 ml/min/1.73 sqM) Est GFR (CKD-EPI)NonAf (>60 ml/min/1.73 sqM) Glucose (74-99) mg/dL Plasma Lactic Acid Ian (0.7-2.0) mmol/L Calcium (8.4-10.2) mg/dL Magnesium (1.6-2.3) mg/dL Total Bilirubin (0.2-1.3) mg/dL AST (17-59) U/L ALT (4-49) U/L Alkaline Phosphatase (38-126) U/L Troponin I <0.012 (0.000-0.034) ng/mL Total Protein (6.3-8.2) g/dL Albumin (3.5-5.0) g/dL Influenza Type A (PCR) Not Detected (Not Detectd) Influenza Type B (PCR) Not Detected (Not Detectd) RSV (PCR) Not Detected (Not Detectd) SARS-CoV-2 (PCR) Not Detected (Not Detectd) - EKG Data -: EKG Interpreted by Me EKG Comments: EKG reveals atrial fibrillation with RVR. Ventricular rate 124 bpm, WA interval not calculated, QRS duration 77, QT/QTc 309/382 Disposition Clinical Impression: Atrial fibrillation with rapid ventricular response Disposition: ADMITTED IP TO THIS [facility] Time of Disposition: 00:57
--- NOTE | 2024-03-28 21:55 | XR ---
EXAMINATION TYPE: XR chest 2V DATE OF EXAM: 03/28/2024 9:46 PM COMPARISON: None. CLINICAL INDICATION: Male, 78 years old with history of fever, new onset atrial fibrillation; [facility] TECHNIQUE: XR chest 2V Frontal and lateral views of the chest. FINDINGS: Heart size within normal limits. No acute focal consolidation. No pleural effusion. Questionable right lateral lung small pneumothorax versus overlying skinfold. No acute osseous abnormality. IMPRESSION: Indeterminate and lucency in the lateral right lung which could reflect overlying skinfold or small p neumothorax. Recommend clinical correlation and consideration of either repeat chest x-ray or CT ches t for further evaluation. [facility], , 03/28/2024 9:52 PM
[2024-03-28] MEDS: ONDANSETRON 4 MG/2 ML VIAL IVP STA (22:49)
[2024-03-28] MEDS: DILTIAZEM 5 MG/ML 5 ML VIAL IVP STA (22:52)
[2024-03-28] MEDS: ACETAMINOPHEN IV (For NPO) 1,000 MG in EMPTY BAG 1 BAG IVPB STA (22:57)
[2024-03-28 23:13] LABS: Basophils % (A) 0 %; Eosinophils # (A) 0.1 k/uL (0-0.7); Eosinophils % (A) 1 %; HCT 39.7 % (39.0-53.0); HGB 13.2 gm/dL (13.0-17.5); Lymphocytes # (A) 0.8 k/uL (1.0-4.8); Lymphocytes % (A) 7 %; MCH 30.8 pg (25.0-35.0); MCHC 33.2 g/dL (31.0-37.0); MCV 92.9 fL (80.0-100.0); Mean Platelet Volume 9.2; Monocytes # (A) 0.3 k/uL (0-1.0); Monocytes % (A) 3 %; Neutrophils # (A) 9.9 k/uL (1.3-7.7); Neutrophils % (A) 89 %; RBC 4.27 m/uL (4.30-5.90); WBC 11.2 k/uL (3.8-10.6)
[2024-03-28 23:14] LABS: Platelet Count 76 k/uL (150-450)
[2024-03-28 23:28] LABS: ALT 28 U/L (4-49); AST 29 U/L (17-59); African American GFR (CKD) 87 (>60 ml/min/1.73 sqM); Albumin 3.2 g/dL (3.5-5.0); Alkaline Phosphatase 115 U/L (38-126); Anion Gap 6 mmol/L; Blood Urea Nitrogen 25 mg/dL (9-20); Calcium 8.7 mg/dL (8.4-10.2); Carbon Dioxide 26 mmol/L (22-30); Chloride 104 mmol/L (98-107); Glucose 137 mg/dL (74-99); Magnesium 1.5 mg/dL (1.6-2.3); Non-African American GFR(CKD) 76 (>60 ml/min/1.73 sqM); Potassium 4.4 mmol/L (3.5-5.1); Sodium 136 mmol/L (137-145); Total Bilirubin 0.6 mg/dL (0.2-1.3); Total Protein 5.9 g/dL (6.3-8.2)
[2024-03-29] MEDS: SODIUM CHLORIDE 0.9% 2,000 ML IV STA (00:08)
[2024-03-29] MEDS: SODIUM CHLORIDE 0.9% 500 ML 500 ML IV STA (00:09)
[2024-03-29] MEDS ORDERED: HYDROmorphone 1 MG/ML 1 ML SYRINGE IVP PRN (00:12)
[2024-03-29] MEDS ORDERED: NALOXONE 0.4 MG/ML 1 ML VIAL IV PRN (00:12)
[2024-03-29] MEDS ORDERED: ACETAMINOPHEN TAB 325 MG TAB PO PRN (00:12)
[2024-03-29] MEDS ORDERED: HYDROmorphone 0.5 MG/0.5 ML SYRINGE IVP PRN (00:12)
[2024-03-29] MEDS ORDERED: ONDANSETRON 4 MG/2 ML VIAL IVP PRN (00:12)
[2024-03-29] MEDS: cefTRIAXone IN SWFI 1,000 MG/10 ML SYRINGE IVP STA (00:19)
[2024-03-29] MEDS: MAGNESIUM SULFATE-D5W PMX 1 GM in DEXTROSE/WATER 1 100ML.BAG IVPB ONE (00:25)
[2024-03-29] MEDS: MAGNESIUM OXIDE 400 MG TAB PO STA ×2 (00:28)
[2024-03-29] MEDS: APIXABAN 5 MG TAB PO SCH (00:28)
[2024-03-29 01:47] LABS: INR 1.2 (<1.2); Partial Thromboplastin Time 23.6 sec (22.0-30.0); Prothrombin Time 12.4 sec (10.0-12.5)
[2024-03-29 02:13] LABS: Amorphous Sediment,Urine Rare /hpf; Appearance,Urine Cloudy (Clear); Bacteria,Urine Rare /hpf; Bilirubin,Urine Negative (Negative); Blood,Urine Large (Negative); Color,Urine Light Yellow; Glucose,Urine (UA) Negative (Negative); Hyaline Casts,Urine 17 /lpf (0-2); Ketones,Urine Negative (Negative); Leukocyte Esterase,Urine Moderate (Negative); Mucus,Urine Rare /hpf; Nitrite,Urine Negative (Negative); PH, Urine 5.5 (5.0-8.0); Protein,Urine Trace (Negative); RBC,Urine 134 /hpf (0-5); Specific Gravity,Urine 1.023 (1.001-1.035); Squamous Epithelial Cell,Urine <1 /hpf (0-4); Urobilinogen,Urine <2.0 mg/dL (<2.0); WBC,Urine 75 /hpf (0-5)
[2024-03-29] MEDS ORDERED: MAGNESIUM HYDROXIDE 2,400 MG/30 ML CUP PO PRN (14:19)
[2024-03-29] MEDS ORDERED: DEXTROSE 50% SYRINGE 50 ML IVP PRN ×2 (14:20)
[2024-03-29] MEDS: METOPROLOL SUCCINATE (ER) 25 MG TAB.ER.24H PO SCH (14:30)
--- NOTE | 2024-03-29 16:07 | P.HPIM ---
History of Present Illness H&P Date: 03/29/24 History of present illness; patient is a 78-year-old gentleman with past medical history significant for dementia, atrial fibrillation who presented to the ER for nausea and vomiting. Patient was discharged yesterday after being admitted to the hospital for urinary retention and hyperkalemia and was [facility] back to the [facility]. Patient started having nausea and vomiting today. There is no complaint of abdominal pain., There is no complaint of fever or chills. Denies any chest pain or shortness of breath. Because of his nausea and vomiting, patient came to the ER Initial lab work done in the ER showed WBC 11.2, hemoglobin 13.2, platelet count 76, sodium 130s, potassium 4.4, BUN 25, creatinine 0.97, glucose 137, medium 1.5 UA done showed large amount of blood, moderate amount of leukocyte Estrace, urine WBC 75 Influenza A not detected Influenza B not detected RSV not detected COVID-19 not detected EKG done in the ER showed heart rate of 124, irregular and rhythm and rate, no ST segment elevation or depression seen, no T-wave inversions seen. Chest x-ray done in the ER showed indeterminate in lucency in the lateral right lung which could reflect overlying skinfold or small pneumothorax. Patient admitted to internal medicine service REVIEW OF SYSTEMS: CONSTITUTIONAL: No fever, no malaise, no fatigue. HEENT: No recent visual problems or hearing problems. Denied any sore throat. CARDIOVASCULAR: No chest pain, orthopnea, PND, no palpitations, no syncope. PULMONARY: No shortness of breath, no cough, no hemoptysis. GASTROINTESTINAL: As mentioned above NEUROLOGICAL: No headaches, no weakness, no numbness. HEMATOLOGICAL: Denies any bleeding or petechiae. GENITOURINARY: Denies any burning micturition, frequency, or urgency. MUSCULOSKELETAL/RHEUMATOLOGICAL: Denies any joint pain, swelling, or any muscle pain. ENDOCRINE: Denies any polyuria or polydipsia. The rest of the 14-point review of systems is negative. PHYSICAL EXAMINATION: GENERAL: The patient is alert to self HEENT: Pupils are round and equally reacting to light. EOMI. No scleral icterus. No conjunctival pallor. Normocephalic, atraumatic. No pharyngeal erythema. No thyromegaly. CARDIOVASCULAR: S1 and S2 present. No murmurs, rubs, or gallops. PULMONARY: Chest is clear to auscultation, no wheezing or crackles. ABDOMEN: Soft, nontender, nondistended, normoactive bowel sounds. No palpable organomegaly. MUSCULOSKELETAL: No joint swelling or deformity. EXTREMITIES: No cyanosis, clubbing, or pedal edema. NEUROLOGICAL: Gross neurological examination did not reveal any focal deficits. SKIN: No rashes. Assessment and plan Nausea and vomiting Paroxysmal ordered A-fib with RVR UTI Hypomagnesemia Hypertension Monitor vital signs Monitor CBC Monitor CMP Continue telemetry monitoring Open urine culture Started IV Rocephin Patient was given IV Cardizem bolus in the ER, resume oral Lopressor. Started on Eliquis by ER, at this time we will DC anticoagulant because of patient history of dementia and frequent falls Resume home med Consult cardiology Consult ID Labs and medication were reviewed.. Continue same treatment. Continue with symptomatic treatment. Resume home medication. Monitor labs and vitals. DVT and GI prophylaxis. Further recommendations as per clinical course of the patient Dictation was produced using [facility] dictation software. please excuse any gr ammatical, word or spelling errors. Past Medical History Past Medical History: CVA/TIA, Dementia, Diabetes Mellitus History of Any Multi-Drug Resistant Organisms: None Reported Additional Past Surgical History / Comment(s): surgery as a child Smoking Status: Former smoker Past Alcohol Use History: Rare Past Drug Use History: None Reported Medications and Allergies Home Medications Medication Instructions Recorded Confirmed Type Calcium Carbonate/Vitamin D3 1 tab PO DAILY 03/15/24 03/29/24 History [Calcium 600 mg-Vit D3 5 mcg (200 unit)] Citalopram Hydrobromide [CeleXA] 20 mg PO DAILY 03/15/24 03/29/24 History Cyanocobalamin [Vitamin B-12] 500 mcg PO DAILY 03/15/24 03/29/24 History Divalproex Sodium [Depakote] 125 mg PO BID 03/15/24 03/29/24 History Folic Acid 0.8 mg PO DAILY 03/15/24 03/29/24 History Ketotifen 0.025% Ophth Soln 1 drop BOTH EYES BID 03/15/24 03/29/24 History [Zaditor] Magnesium Hydroxide [Milk of 400 mg PO Q72H PRN 03/15/24 03/29/24 History Magnesia] Melatonin 5 mg PO HS 03/15/24 03/29/24 History Metoprolol Succinate (ER) [Toprol 25 mg PO DAILY 03/15/24 03/29/24 History XL] Multivitamins, Thera [Multivitamin 1 tab PO DAILY 03/15/24 03/29/24 History (formulary)] Pantoprazole [Protonix] 40 mg PO DAILY 03/15/24 03/29/24 History Promethazine HCl 12.5 mg PO Q6H PRN 03/15/24 03/29/24 History Tamsulosin [Flomax] 0.4 mg PO HS 03/15/24 03/29/24 History busPIRone HCl [Buspar] 10 mg PO BID 03/15/24 03/29/24 History amLODIPine [Norvasc] 5 mg PO DAILY tab 03/28/24 03/29/24 Rx Acetaminophen/Diphenhydramine 1 tab PO Q6H PRN 03/29/24 03/29/24 History [Tylenol PM 500-25mg] INSULIN ASPART (NovoLOG) [NovoLOG 2 unit SQ ACHS 03/29/24 03/29/24 History (formulary)] Allergies Allergy/AdvReac Type Severity Reaction Status Date / Time No Known Allergies Allergy Verified 03/29/24 09:03 Physical Exam Vitals: Vital Signs Temp Pulse Resp BP Pulse Ox 03/29/24 12:00 74 18 113/69 97 03/29/24 11:00 77 18 107/75 97 03/29/24 09:00 80 18 110/76 99 03/29/24 07:53 75 16 95 03/29/24 07:11 82 15 101/73 99 03/29/24 05:10 79 15 91/58 100 03/29/24 04:40 82 16 97/69 98 03/29/24 04:10 97.9 F 80 15 106/61 99 03/29/24 03:40 76 15 96/68 97 03/29/24 03:10 85 15 86/61 97 03/29/24 02:40 92 15 96/66 97 03/29/24 02:10 81 15 88/59 96 03/29/24 02:00 76 16 97/69 96 03/29/24 01:40 82 15 85/60 97 03/29/24 01:20 83 16 93/56 96 03/29/24 01:10 86 15 106/70 95 03/29/24 00:50 87 16 98/66 97 03/29/24 00:40 81 15 99/64 97 03/29/24 00:21 85 16 86/56 98 03/29/24 00:14 98.5 F 97 17 79/58 97 03/28/24 23:46 100.5 F H 98 18 86/62 99 03/28/24 22:51 116 H 18 128/82 98 03/28/24 20:23 100.5 F H 110 H 18 145/94 98 Intake and Output 03/28/24 03/29/24 03/29/24 22:59 06:59 14:59 Output Total 150 450 Balance -150 -450 Output: Urine 150 450 Straight 450 Other: Weight 79.379 kg Results CBC & Chem 7: 03/28/24 22:50 03/28/24 22:50 Labs: Abnormal Lab Results - Last 24 Hours (Table) 03/28/24 03/28/24 03/29/24 Range/Units 22:50 22:50 01:27 WBC 11.2 H (3.8-10.6) k/uL RBC 4.27 L (4.30-5.90) m/uL RDW 16.0 H (11.5-15.5) % Plt Count 76 L D (150-450) k/uL Neutrophils # 9.9 H (1.3-7.7) k/uL Lymphocytes # 0.8 L (1.0-4.8) k/uL INR 1.2 H (<1.2) Sodium 136 L (137-145) mmol/L BUN 25 H (9-20) mg/dL Glucose 137 H (74-99) mg/dL Magnesium 1.5 L (1.6-2.3) mg/dL Total Protein 5.9 L (6.3-8.2) g/dL Albumin 3.2 L (3.5-5.0) g/dL Urine Protein (Negative) Urine Blood (Negative) Ur Leukocyte Esterase (Negative) Urine RBC (0-5) /hpf Urine WBC (0-5) /hpf Amorphous Sediment (None) /hpf Urine Bacteria (None) /hpf Hyaline Casts (0-2) /lpf Urine Mucus (None) /hpf 03/29/ Range/Units 01:54 WBC (3.8-10.6) k/uL RBC (4.30-5.90) m/uL RDW (11.5-15.5) % Plt Count (150-450) k/uL Neutrophils # (1.3-7.7) k/uL Lymphocytes # (1.0-4.8) k/uL INR (<1.2) Sodium (137-145) mmol/L BUN (9-20) mg/dL Glucose (74-99) mg/dL Magnesium (1.6-2.3) mg/dL Total Protein (6.3-8.2) g/dL Albumin (3.5-5.0) g/dL Urine Protein Trace H (Negative) Urine Blood Large H (Negative) Ur Leukocyte Esterase Moderate H (Negative) Urine RBC 134 H (0-5) /hpf Urine WBC 75 H (0-5) /hpf Amorphous Sediment Rare H (None) /hpf Urine Bacteria Rare H (None) /hpf Hyaline Casts 17 H (0-2) /lpf Urine Mucus Rare H (None) /hpf
[2024-03-29] MEDS: INSULIN ASPART (NovoLOG) 100 UNIT/ML VIAL SQ SCH (16:54)
[2024-03-29] MEDS: busPIRone HCl 10 MG TAB PO SCH (20:20)
[2024-03-29] MEDS: MELATONIN 5 MG TABLET PO SCH (20:20)
[2024-03-29] MEDS: DIVALPROEX SPRINKLE 125 MG CAP.SPRINK PO SCH (20:20)
[2024-03-29] MEDS: TAMSULOSIN 0.4 MG CAP.ER.24H PO SCH (20:20)
--- NOTE | 2024-03-29 21:37 | P.CONS ---
History of Present Illness - Reason for Consult Consult date: 03/29/24 UTI Requesting physician: Charles Shaw - Chief Complaint Vomiting x 1 day - History of Present Illness Patient is a 78-year-old male with a past medical his significant for diabetes mellitus CVA TIA dementia patient has been brought into the hospital for evaluation of vomiting apparently the patient was discharged yesterday after the patient has been the hospital for almost 2 weeks and was treated for urinary retention with obstructive uropathy patient did have 4-5 episodes of vomiting after returning to the half-way with the patient was [facility] back to the [facility] on arrival to the ER patient did have a temperature of 100.5 F patient was tachycardic but not hypotensive or hypoxic and no need for supplemental oxygen he did have white count of 11.2 creatinine 0.97 here and has been significantly positive with moderate leukocyte esterase 75 WBC influenza RSV COVID testing was negative patient did have a chest x-ray no acute focal consolidation or effusion patient has been diagnosed with a catheter associated UTI he was started on ceftriaxone infectious disease was consulted for further management of antibiotic to be positive for patient has not been febrile in the chart patient was evaluated for historian with underlying dementia though denies having any headache no chest pain shortness with or cough no abdominal pain no diarrhea Review of Systems Positive points has been mentioned in HPI complete review could not be obtained because of his underlying mental status Past Medical History Past Medical History: CVA/TIA, Dementia, Diabetes Mellitus History of Any Multi-Drug Resistant Organisms: None Reported Additional Past Surgical History / Comment(s): surgery as a child Smoking Status: Former smoker Past Alcohol Use History: Rare Past Drug Use History: None Reported Medications and Allergies Home Medications Medication Instructions Recorded Confirmed Type Calcium Carbonate/Vitamin D3 1 tab PO DAILY 03/15/24 03/29/24 History [Calcium 600 mg-Vit D3 5 mcg (200 unit)] Citalopram Hydrobromide [CeleXA] 20 mg PO DAILY 03/15/24 03/29/24 History Cyanocobalamin [Vitamin B-12] 500 mcg PO DAILY 03/15/24 03/29/24 History Divalproex Sodium [Depakote] 125 mg PO BID 03/15/24 03/29/24 History Folic Acid 0.8 mg PO DAILY 03/15/24 03/29/24 History Ketotifen 0.025% Ophth Soln 1 drop BOTH EYES BID 03/15/24 03/29/24 History [Zaditor] Magnesium Hydroxide [Milk of 400 mg PO Q72H PRN 03/15/24 03/29/24 History Magnesia] Melatonin 5 mg PO HS 03/15/24 03/29/24 History Metoprolol Succinate (ER) [Toprol 25 mg PO DAILY 03/15/24 03/29/24 History XL] Multivitamins, Thera [Multivitamin 1 tab PO DAILY 03/15/24 03/29/24 History (formulary)] Pantoprazole [Protonix] 40 mg PO DAILY 03/15/24 03/29/24 History Promethazine HCl 12.5 mg PO Q6H PRN 03/15/24 03/29/24 History Tamsulosin [Flomax] 0.4 mg PO HS 03/15/24 03/29/24 History busPIRone HCl [Buspar] 10 mg PO BID 03/15/24 03/29/24 History amLODIPine [Norvasc] 5 mg PO DAILY tab 03/28/24 03/29/24 Rx Acetaminophen/Diphenhydramine 1 tab PO Q6H PRN 03/29/24 03/29/24 History [Tylenol PM 500-25mg] INSULIN ASPART (NovoLOG) [NovoLOG 2 unit SQ ACHS 03/29/24 03/29/24 History (formulary)] Allergies Allergy/AdvReac Type Severity Reaction Status Date / Time No Known Allergies Allergy Verified 03/29/24 09:03 Physical Exam Vitals: Vital Signs Temp Pulse Resp BP Pulse Ox 03/29/24 15:01 76 18 120/85 99 03/29/24 14:00 76 16 124/77 98 03/29/24 12:00 74 18 113/69 97 03/29/24 11:00 77 18 107/75 97 03/29/24 09:00 80 18 110/76 99 03/29/24 07:53 75 16 95 03/29/24 07:11 82 15 101/73 99 03/29/24 05:10 79 15 91/58 100 03/29/24 04:40 82 16 97/69 98 03/29/24 04:10 97.9 F 80 15 106/61 99 03/29/24 03:40 76 15 96/68 97 03/29/24 03:10 85 15 86/61 97 03/29/24 02:40 92 15 96/66 97 03/29/24 02:10 81 15 88/59 96 03/29/24 02:00 76 16 97/69 96 03/29/24 01:40 82 15 85/60 97 03/29/24 01:20 83 16 93/56 96 03/29/24 01:10 86 15 106/70 95 03/29/24 00:50 87 16 98/66 97 03/29/24 00:40 81 15 99/64 97 03/29/24 00:21 85 16 86/56 98 03/29/24 00:14 98.5 F 97 17 79/58 97 03/28/24 23:46 100.5 F H 98 18 86/62 99 03/28/24 22:51 116 H 18 128/82 98 03/28/24 20:23 100.5 F H 110 H 18 145/94 98 Intake and Output 03/29/24 03/29/24 03/29/24 06:59 14:59 22:59 Output Total 150 450 Balance -150 -450 Output: Urine 150 450 Straight 450 GENERAL DESCRIPTION: Elderly male lying in bed, no distress. No tachypnea or accessory muscle of respiration use. HEENT: Shows Pallor , no scleral icterus. Oral mucous membrane is dry. NECK: Trachea central, no thyromegaly. LUNGS: Unlabored breathing. Clear to auscultation anteriorly. HEART: S1, S2, regular rate and rhythm. No loud murmur ABDOMEN: Soft, no tenderness , EXTREMITIES: No edema of feet. SKIN: No rash, no masses palpable. NEUROLOGICAL: The patient is awake, alert, mood and affect normal. Results CBC & Chem 7: 03/28/24 22:50 03/28/24 22:50 Labs: Abnormal Lab Results - Last 24 Hours (Table) 03/28/24 03/28/24 03/29/24 Range/Units 22:50 22:50 01:27 WBC 11.2 H (3.8-10.6) k/uL RBC 4.27 L (4.30-5.90) m/uL RDW 16.0 H (11.5-15.5) % Plt Count 76 L D (150-450) k/uL Neutrophils # 9.9 H (1.3-7.7) k/uL Lymphocytes # 0.8 L (1.0-4.8) k/uL INR 1.2 H (<1.2) Sodium 136 L (137-145) mmol/L BUN 25 H (9-20) mg/dL Glucose 137 H (74-99) mg/dL Magnesium 1.5 L (1.6-2.3) mg/dL Total Protein 5.9 L (6.3-8.2) g/dL Albumin 3.2 L (3.5-5.0) g/dL Urine Protein (Negative) Urine Blood (Negative) Ur Leukocyte Esterase (Negative) Urine RBC (0-5) /hpf Urine WBC (0-5) /hpf Amorphous Sediment (None) /hpf Urine Bacteria (None) /hpf Hyaline Casts (0-2) /lpf Urine Mucus (None) /hpf 03/29/24 Range/Units 01:54 WBC (3.8-10.6) k/uL RBC (4.30-5.90) m/uL RDW (11.5-15.5) % Plt Count (150-450) k/uL Neutrophils # (1.3-7.7) k/uL Lymphocytes # (1.0-4.8) k/uL INR (<1.2) Sodium (137-145) mmol/L BUN (9-20) mg/dL Glucose (74-99) mg/dL Magnesium (1.6-2.3) mg/dL Total Protein (6.3-8.2) g/dL Albumin (3.5-5.0) g/dL Urine Protein Trace H (Negative) Urine Blood Large H (Negative) Ur Leukocyte Esterase Moderate H (Negative) Urine RBC 134 H (0-5) /hpf Urine WBC 75 H (0-5) /hpf Amorphous Sediment Rare H (None) /hpf Urine Bacteria Rare H (None) /hpf Hyaline Casts 17 H (0-2) /lpf Urine Mucus Rare H (None) /hpf Assessment and Plan (1) UTI (urinary tract infection) Current Visit: Yes Status: Acute Code(s): N39.0 - URINARY TRACT INFECTION, SITE NOT SPECIFIED SNOMED Code(s): 36626356 (2) Leukocytosis Current Visit: Yes Status: Acute Code(s): D72.829 - ELEVATED WHITE BLOOD CELL COUNT, UNSPECIFIED SNOMED Code(s): 356294555 Plan: 1patient presented to hospital with acute nausea and vomiting in this patient who did have urinary retention with a chronic indwelling Foster catheter significantly positive UA concerning for catheter associated UTI and no other clear focus for this elevated white count and fever chest x-ray did not show any consolidation evidence of any cellulitis 2-recommend to change the Foster catheter obtain urine culture from the new Foster 3-Rocephin 1 g daily to continue while waiting for the culture to finalize We will follow on clinical condition and cultures to further adjust medication if needed Thank you for this consultation we will follow the patient along with you Dictation was produced using [employer] dictation software. please excuse any grammatical, word or spelling errors. Time with Patient: Greater than 30
[2024-03-30 07:11] LABS: Glucose,Whole Blood 82 mg/dL (70-110)
[2024-03-30 07:11] LABS: Glucose,Whole Blood 103 mg/dL (70-110)
[2024-03-30 07:11] LABS: Glucose,Whole Blood 112 mg/dL (70-110)
[2024-03-30 07:11] LABS: Glucose,Whole Blood 88 mg/dL (70-110)
[2024-03-30 07:53] LABS: Basophils % (A) 0 %; Eosinophils # (A) 0.2 k/uL (0-0.7); Eosinophils % (A) 4 %; HCT 36.8 % (39.0-53.0); HGB 11.7 gm/dL (13.0-17.5); Hypochromasia Moderate; Lymphocytes # (A) 1.8 k/uL (1.0-4.8); Lymphocytes % (A) 35 %; MCH 30.9 pg (25.0-35.0); MCHC 31.9 g/dL (31.0-37.0); MCV 96.7 fL (80.0-100.0); Mean Platelet Volume 8.8; Monocytes # (A) 0.4 k/uL (0-1.0); Monocytes % (A) 7 %; Neutrophils # (A) 2.6 k/uL (1.3-7.7); Neutrophils % (A) 52 %; RBC 3.81 m/uL (4.30-5.90); RDW 15.8 % (11.5-15.5); WBC 5.1 k/uL (3.8-10.6)
[2024-03-30] MEDS: MULTIVITAMINS, THERA 1 EACH TAB PO SCH (07:55)
[2024-03-30] MEDS: PANTOPRAZOLE 40 MG TABLET PO SCH (07:55)
[2024-03-30] MEDS: CALCIUM CARB-VIT D 500 MG-5 MCG TAB PO SCH (07:56)
[2024-03-30] MEDS: CYANOCOBALAMIN 500 MCG TAB PO SCH (07:56)
[2024-03-30] MEDS: FOLIC ACID 1 MG TAB PO SCH (07:57)
[2024-03-30 08:09] LABS: ALT 21 U/L (4-49); AST 20 U/L (17-59); African American GFR (CKD) 86 (>60 ml/min/1.73 sqM); Albumin 2.6 g/dL (3.5-5.0); Alkaline Phosphatase 100 U/L (38-126); Anion Gap 5 mmol/L; Blood Urea Nitrogen 22 mg/dL (9-20); Calcium 8.2 mg/dL (8.4-10.2); Carbon Dioxide 25 mmol/L (22-30); Chloride 107 mmol/L (98-107); Glucose 90 mg/dL (74-99); Non-African American GFR(CKD) 75 (>60 ml/min/1.73 sqM); Potassium 3.9 mmol/L (3.5-5.1); Sodium 137 mmol/L (137-145); Total Bilirubin 0.3 mg/dL (0.2-1.3)
[2024-03-30 09:04] LABS: Platelet Count 94 k/uL (150-450)
--- NOTE | 2024-03-30 11:42 | P.CRDCN ---
History of Present Illness Consult date: 03/30/24 History of present illness: HISTORY OF PRESENTING ILLNESS 78-year-old with PMH of dementia, atrial fibrillation, presented to the hospital because of nausea and vomiting poor appetite. He was discharged yesterday from the hospital. He was treated in the hospital for urinary retention, hyperkalemia and was discharged back to senior living. At senior living he had nausea and vomiting therefore he presented to the hospital. On admission there was evidence of atrial fibrillation with RVR for which cardiology was consulted. Admission ECG shows A-fib, heart rate 124 bpm with PVCs, Labs shows hemoglobin 11.7, creatinine 0.98, BUN 22, platelets 94, magnesium 1.5, tropes were normal. Currently telemetry shows rate controlled atrial fibrillation. Social Hx: Family Hx: non contributary to current clinical scenario REVIEW OF SYSTEMS 14 point review of system is negative except what is mentioned above in HPI. PHYSICAL EXAMINATION Neck: Brisk carotid upstroke, no jugular venous distention. Lungs: Mild crackles audible in bilateral bases Heart: Irregularly irregular pulse, mild systolic murmur audible. Abdomen: Soft nontender, positive bowel sounds. Extremities: No edema, intact distal pulses. Neuro: Alert, not oriented to time place and person. Detailed neuro exam was not performed. ASSESSMENT A-fib RVR on admission, currently rate controlled History of persistent A-fib Nausea and vomiting Recent hospital admission for urinary retention and hyperkalemia Dementia History of seizures High fall risk Frailty PLAN He is not on anticoagulation because of increased fall and dementia. Continue metoprolol succinate 25 mg daily. I would start him on aspirin 81 mg I will obtain an echocardiogram. Further recommendations to follow Sanchez Ron MD, FACC, RPVI Thank you for allowing [facility] to participate in this patient's care. Feel free to reach out in case of any followup questions. Past Medical History Past Medical History: CVA/TIA, Dementia, Diabetes Mellitus History of Any Multi-Drug Resistant Organisms: None Reported Additional Past Surgical History / Comment(s): surgery as a child Smoking Status: Former smoker Past Alcohol Use History: Rare Past Drug Use History: None Reported Medications and Allergies Home Medications Medication Instructions Recorded Confirmed Type Calcium Carbonate/Vitamin D3 1 tab PO DAILY 03/15/24 03/29/24 History [Calcium 600 mg-Vit D3 5 mcg (200 unit)] Citalopram Hydrobromide [CeleXA] 20 mg PO DAILY 03/15/24 03/29/24 History Cyanocobalamin [Vitamin B-12] 500 mcg PO DAILY 03/15/24 03/29/24 History Divalproex Sodium [Depakote] 125 mg PO BID 03/15/24 03/29/24 History Folic Acid 0.8 mg PO DAILY 03/15/24 03/29/24 History Ketotifen 0.025% Ophth Soln 1 drop BOTH EYES BID 03/15/24 03/29/24 History [Zaditor] Magnesium Hydroxide [Milk of 400 mg PO Q72H PRN 03/15/24 03/29/24 History Magnesia] Melatonin 5 mg PO HS 03/15/24 03/29/24 History Metoprolol Succinate (ER) [Toprol 25 mg PO DAILY 03/15/24 03/29/24 History XL] Multivitamins, Thera [Multivitamin 1 tab PO DAILY 03/15/24 03/29/24 History (formulary)] Pantoprazole [Protonix] 40 mg PO DAILY 03/15/24 03/29/24 History Promethazine HCl 12.5 mg PO Q6H PRN 03/15/24 03/29/24 History Tamsulosin [Flomax] 0.4 mg PO HS 03/15/24 03/29/24 History busPIRone HCl [Buspar] 10 mg PO BID 03/15/24 03/29/24 History amLODIPine [Norvasc] 5 mg PO DAILY tab 03/28/24 03/29/24 Rx Acetaminophen/Diphenhydramine 1 tab PO Q6H PRN 03/29/24 03/29/24 History [Tylenol PM 500-25mg] INSULIN ASPART (NovoLOG) [NovoLOG 2 unit SQ ACHS 03/29/24 03/29/24 History (formulary)] Allergies Allergy/AdvReac Type Severity Reaction Status Date / Time No Known Allergies Allergy Verified 03/29/24 09:03 Physical Exam Vitals: Vital Signs Pulse Resp BP Pulse Ox 03/30/24 08:00 76 22 135/93 98 03/30/24 03:00 61 18 112/79 97 03/30/24 02:01 60 18 120/76 98 03/30/24 00:32 18 97 03/29/24 23:55 71 18 118/82 97 03/29/24 21:30 77 18 108/71 96 03/29/24 19:00 75 18 112/84 96 03/29/24 17:00 83 18 112/71 98 03/29/24 16:00 81 16 118/79 97 03/29/24 15:01 76 18 120/85 99 03/29/24 14:00 76 16 124/77 98 03/29/24 12:00 74 18 113/69 97 Results 03/30/24 07:06 03/30/24 07:06 Cardiac Enzymes 03/30/24 Range/Units 07:06 AST 20 (17-59) U/L CBC 03/30/24 Range/Units 07:06 WBC 5.1 (3.8-10.6) k/uL RBC 3.81 L (4.30-5.90) m/uL Hgb 11.7 L (13.0-17.5) gm/dL Hct 36.8 L (39.0-53.0) % Plt Count 94 L (150-450) k/uL Comprehensive Metabolic Panel 03/30/24 Range/Units 07:06 Sodium 137 (137-145) mmol/L Potassium 3.9 (3.5-5.1) mmol/L Chloride 107 (98-107) mmol/L Carbon Dioxide 25 (22-30) mmol/L BUN 22 H (9-20) mg/dL Creatinine 0.98 (0.66-1.25) mg/dL Glucose 90 (74-99) mg/dL Calcium 8.2 L (8.4-10.2) mg/dL AST 20 (17-59) U/L ALT 21 (4-49) U/L Alkaline Phosphatase 100 (38-126) U/L Total Protein 5.0 L (6.3-8.2) g/dL Albumin 2.6 L (3.5-5.0) g/dL Current Medications Generic Name Dose Route Start Last Admin Trade Name Freq PRN Reason Stop Dose Admin Acetaminophen 650 mg 03/29/24 00:12 Acetaminophen Tab 325 Mg Tab PO Q6HR PRN Mild Pain or Fever > 100.5 Buspirone HCl 10 mg 03/29/24 21:00 03/30/24 07:56 Buspirone Hcl 10 Mg Tab PO 10 mg BID NAHUN Administration Calcium Carbonate 1 each 03/30/24 09:00 03/30/24 07:56 Calcium Carb-Vit D 500 Mg-5 Mcg Tab PO 1 each DAILY NAHUN Administration Cyanocobalamin 500 mcg 03/30/24 09:00 03/30/24 07:56 Cyanocobalamin 500 Mcg Tab PO 500 mcg DAILY NAHUN Administration Dextrose/Water 25 ml 03/29/24 14:20 Dextrose 50% Syringe 50 Ml IVP PER PROTOCOL PRN Hypoglycemia Protocol Dextrose/Water 50 ml 03/29/24 14:20 Dextrose 50% Syringe 50 Ml IVP PER PROTOCOL PRN Hypoglycemia Protocol Divalproex Sodium 125 mg 03/29/24 21:00 03/30/24 07:56 Divalproex Sprinkle 125 Mg Cap.Sprink PO 125 mg BID NAHUN Administration Folic Acid 1 mg 03/30/24 09:00 03/30/24 07:57 Folic Acid 1 Mg Tab PO 1 mg DAILY NAHUN Administration Hydromorphone HCl 0.5 mg 03/29/24 00:12 Hydromorphone 0.5 Mg/0.5 Ml Syringe IVP Q3HR PRN Moderate Pain (Scale 4 to 6) Hydromorphone HCl 1 mg 03/29/24 00:12 Hydromorphone 1 Mg/Ml 1 Ml Syringe IVP Q3HR PRN Severe Pain (Scale 7 to 10) Ceftriaxone Sodium 1 gm/ 50 mls @ 100 mls/hr 03/30/24 09:00 03/30/24 07:59 Sodium Chloride IVPB 100 mls/hr Q24HR NAHUN Administration Protocol Insulin Aspart 0 unit 03/29/24 17:30 03/30/24 07:31 Insulin Aspart (Novolog) 100 Unit/Ml Vial SQ Not Given ACHS NAHUN Protocol Magnesium Hydroxide 400 mg 03/29/24 14:19 Magnesium Hydroxide 2,400 Mg/30 Ml Cup PO Q72H PRN Constipation Melatonin 5 mg 03/29/24 21:00 03/29/24 20:20 Melatonin 5 Mg Tablet PO 5 mg HS NAHUN Administration Metoprolol Succinate 25 mg 03/29/24 14:30 03/30/24 07:57 Metoprolol Succinate (Er) 25 Mg Tab.Er.24h PO 25 mg DAILY NAHUN Administration Multivitamins 1 each 03/30/24 09:00 12/26/24 07:55 Multivitamins, Thera 1 Each Tab PO 1 each DAILY NAHUN Administration Naloxone HCl 0.2 mg 03/29/24 00:12 Naloxone 0.4 Mg/Ml 1 Ml Vial IV Q2M PRN Opioid Reversal Ondansetron HCl 4 mg 03/29/24 00:12 Ondansetron 4 Mg/2 Ml Vial IVP Q8HR PRN Nausea And Vomiting Pantoprazole Sodium 40 mg 03/30/24 07:30 03/30/24 07:55 Pantoprazole 40 Mg Tablet PO 40 mg DAILY@0730 NAHUN Administration Tamsulosin HCl 0.4 mg 03/29/24 21:00 03/29/24 20:20 Tamsulosin 0.4 Mg Cap.Er.24h PO 0.4 mg HS NAHUN Administration 03/30/24 07:06 03/30/24 07:06
[2024-03-30 13:21] LABS: Glucose,Whole Blood 102 mg/dL (70-110)
--- NOTE | 2024-03-30 14:24 | P.PN ---
Subjective Progress Note Date: 03/30/24 Principal diagnosis: Reason for follow-up is catheter associated UTI Patient is a 78-year-old male with a past medical his significant for diabetes mellitus CVA TIA dementia patient has been brought into the hospital for evaluation of vomiting, patient did have a Foster catheter positive UA elevated white count in the presence of mental status changes concerning for c atheter assisted UTI. On today's evaluation that is 03/30/2024,the patient did have resolution of his fever and is afebrile this morning patient is breathing comfortably denies any chest pain shortness of breath or cough no abdominal pain or diarrhea. Patient white count is 5.1 creatinine 0.98 cultures currently pending Objective - Vital Signs Vital signs: Vital Signs Temp 97.9 F 03/29/24 04:10 Pulse 76 03/30/24 08:00 Resp 22 03/30/24 08:00 BP 135/93 03/30/24 08:00 Pulse Ox 98 03/30/24 08:00 FiO2 Intake & Output 03/29/24 03/30/24 03/30/24 18:59 06:59 18:59 Output Total 450 Balance -450 Output: Urine 450 Straight 450 - Exam GENERAL DESCRIPTION: An elderly male lying in bed in no distress RESPIRATORY SYSTEM: Unlabored breathing , decreased breath sounds at bases HEART: S1 S2 regular rate and rhythm , ABDOMEN: Soft , no tenderness EXTREMITIES: No edema feet - Labs CBC & Chem 7: 03/30/24 07:06 03/30/24 07:06 Labs: Abnormal Lab Results - Last 24 Hours (Table) 03/29/24 03/30/24 03/30/24 Range/Units 20:12 07:06 07:06 RBC 3.81 L (4.30-5.90) m/uL Hgb 11.7 L (13.0-17.5) gm/dL Hct 36.8 L (39.0-53.0) % RDW 15.8 H (11.5-15.5) % Plt Count 94 L (150-450) k/uL BUN (9-20) mg/dL POC Glucose (mg/dL) 112 H (70-110) mg/dL Hemoglobin A1c 6.4 H (<=6.0) % Calcium (8.4-10.2) mg/dL Total Protein (6.3-8.2) g/dL Albumin (3.5-5.0) g/dL 03/30/24 Range/Units 07:06 RBC (4.30-5.90) m/uL Hgb (13.0-17.5) gm/dL Hct (39.0-53.0) % RDW (11.5-15.5) % Plt Count (150-450) k/uL BUN 22 H (9-20) mg/dL POC Glucose (mg/dL) (70-110) mg/dL Hemoglobin A1c (<=6.0) % Calcium 8.2 L (8.4-10.2) mg/dL Total Protein 5.0 L (6.3-8.2) g/dL Albumin 2.6 L (3.5-5.0) g/dL Microbiology - Last 24 Hours (Table) 03/28/24 22:55 Blood Culture - Preliminary Blood 03/28/24 22:40 Blood Culture - Preliminary Blood Assessment and Plan (1) UTI (urinary tract infection) Current Visit: Yes Status: Acute Code(s): N39.0 - URINARY TRACT INFECTION, SITE NOT SPECIFIED SNOMED Code(s): 82998216 (2) Leukocytosis Current Visit: Yes Status: Acute Code(s): D72.829 - ELEVATED WHITE BLOOD CELL COUNT, UNSPECIFIED SNOMED Code(s): 111827432 Plan: 1patient presented to hospital with acute nausea and vomiting in this patient who did have urinary retention with a chronic indwelling Foster catheter significantly positive UA concerning for catheter associated UTI and no other clear focus for this elevated white count and fever chest x-ray did not show any consolidation evidence of any cellulitis 2- patient did have resolution of his fever white count normalized, he will continue Rocephin while waiting for the culture to finalize Dictation was produced using [employer] software. please excuse any grammatical, word or spelling errors. Time with Patient: Less than 30
--- NOTE | 2024-03-30 14:53 | P.PN ---
Subjective Progress Note Date: 03/30/24 patient is a 78-year-old gentleman with past medical history significant for dementia, atrial fibrillation who presented to the ER for nausea and vomiting. Patient was discharged yesterday after being admitted to the hospital for urinary retention and hyperkalemia and [facility] Patient started having nausea and vomiting today. There is no complaint of abdominal pain., There is no complaint of fever or chills. Denies any chest pain or shortness of breath. Because of his nausea and vomiting, patient came to the ER Initial lab work done in the ER showed WBC 11.2, hemoglobin 13.2, platelet count 76, sodium 130s, potassium 4.4, BUN 25, creatinine 0.97, glucose 137, medium 1.5 UA done showed large amount of blood, moderate amount of leukocyte Estrace, urine WBC 75 Influenza A not detected Influenza B not detected RSV not detected COVID-19 not detected EKG done in the ER showed heart rate of 124, irregular and rhythm and rate, no ST segment elevation or depression seen, no T-wave inversions seen. Chest x-ray done in the ER showed indeterminate in lucency in the lateral right lung which could reflect overlying skinfold or small pneumothorax. Patient admitted to internal medicine service 03/30. Patient seen and examined. Patient states he is doing much better. Currently in sinus rhythm REVIEW OF SYSTEMS: CONSTITUTIONAL: No fever, no malaise,. CARDIOVASCULAR: No chest pain, no palpitations, no syncope. PULMONARY: No shortness of breath, no cough, GASTROINTESTINAL: No diarrhea, no nausea, no vomiting, no abdominal pain. NEUROLOGICAL: No headaches, no weakness, PHYSICAL EXAMINATION: GENERAL: The patient is alert to self HEENT: Pupils are round and equally reacting to light. EOMI. No scleral icterus. No conjunctival pallor. Normocephalic, atraumatic. No pharyngeal erythema. No thyromegaly. CARDIOVASCULAR: S1 and S2 present. No murmurs, rubs, or gallops. PULMONARY: Chest is clear to auscultation, no wheezing or crackles. ABDOMEN: Soft, nontender, nondistended, normoactive bowel sounds. No palpable organomegaly. MUSCULOSKELETAL: No joint swelling or deformity. EXTREMITIES: No cyanosis, clubbing, or pedal edema. NEUROLOGICAL: Gross neurological examination did not reveal any focal deficits. SKIN: No rashes. Assessment and plan Nausea and vomiting Paroxysmal ordered A-fib with RVR UTI Hypomagnesemia Hypertension Monitor vital signs Monitor CBC Monitor CMP Continue telemetry monitoring Continue IV Rocephin Continue oral Lopressor. Not on anticoagulant because of patient history of dementia and frequent falls ID following Cardiology following Labs and medication were reviewed.. Continue same treatment. Continue with symptomatic treatment. Resume home medication. Monitor labs and vitals. DVT and GI prophylaxis. Further recommendations as per clinical course of the patient Dictation was produced using [email or web address] dictation software. please excuse any grammatical, word or spelling errors. Objective - Vital Signs Vital signs: Vital Signs Temp 98.1 F 03/30/24 14:00 Pulse 70 03/30/24 14:00 Resp 20 03/30/24 14:00 BP 117/75 03/30/24 14:00 Pulse Ox 100 03/30/24 14:00 FiO2 Intake & Output 03/29/24 03/30/24 03/30/24 18:59 06:59 18:59 Output Total 450 Balance -450 Output: Urine 450 Straight 450 - Labs CBC & Chem 7: 03/30/24 07:06 03/30/24 07:06 Labs: Abnormal Lab Results - Last 24 Hours (Table) 03/29/24 03/30/24 03/30/24 Range/Units 20:12 07:06 07:06 RBC 3.81 L (4.30-5.90) m/uL Hgb 11.7 L (13.0-17.5) gm/dL Hct 36.8 L (39.0-53.0) % RDW 15.8 H (11.5-15.5) % Plt Count 94 L (150-450) k/uL BUN (9-20) mg/dL POC Glucose (mg/dL) 112 H (70-110) mg/dL Hemoglobin A1c 6.4 H (<=6.0) % Calcium (8.4-10.2) mg/dL Total Protein (6.3-8.2) g/dL Albumin (3.5-5.0) g/dL 03/30/24 Range/Units 07:06 RBC (4.30-5.90) m/uL Hgb (13.0-17.5) gm/dL Hct (39.0-53.0) % RDW (11.5-15.5) % Plt Count (150-450) k/uL BUN 22 H (9-20) mg/dL POC Glucose (mg/dL) (70-110) mg/dL Hemoglobin A1c (<=6.0) % Calcium 8.2 L (8.4-10.2) mg/dL Total Protein 5.0 L (6.3-8.2) g/dL Albumin 2.6 L (3.5-5.0) g/dL Microbiology - Last 24 Hours (Table) 03/29/24 01:54 Urine Culture - Final Urine,Voided 03/28/24 22:55 Blood Culture - Preliminary Blood 03/28/24 22:40 Blood Culture - Preliminary Blood
[2024-03-30 17:43] LABS: Glucose,Whole Blood 107 mg/dL (70-110)
[2024-03-30 20:19] LABS: Glucose,Whole Blood 97 mg/dL (70-110)
[2024-03-31] MEDS ORDERED: ZINC OXIDE PASTE (Z-GUARD) 1 APPLIC TOPICAL PRN (03:16)
[2024-03-31 07:20] LABS: Glucose,Whole Blood 84 mg/dL (70-110)
[2024-03-31 11:30] LABS: HCT 37.3 % (39.0-53.0); HGB 11.8 gm/dL (13.0-17.5); Hypochromasia Marked; MCH 31.7 pg (25.0-35.0); MCHC 31.8 g/dL (31.0-37.0); MCV 99.9 fL (80.0-100.0); Macrocytosis Slight; Mean Platelet Volume 8.8; Platelet Count 105 k/uL (150-450); RBC 3.73 m/uL (4.30-5.90); RDW 15.8 % (11.5-15.5); WBC 4.6 k/uL (3.8-10.6)
[2024-03-31 11:42] LABS: ALT 18 U/L (4-49); AST 20 U/L (17-59); African American GFR (CKD) 87 (>60 ml/min/1.73 sqM); Albumin 2.4 g/dL (3.5-5.0); Alkaline Phosphatase 85 U/L (38-126); Anion Gap 3 mmol/L; Blood Urea Nitrogen 16 mg/dL (9-20); Calcium 8.2 mg/dL (8.4-10.2); Carbon Dioxide 24 mmol/L (22-30); Chloride 108 mmol/L (98-107); Globulin 2.4 g/dL; Glucose 127 mg/dL (74-99); Non-African American GFR(CKD) 76 (>60 ml/min/1.73 sqM); Potassium 3.7 mmol/L (3.5-5.1); Sodium 135 mmol/L (137-145); Total Bilirubin 0.3 mg/dL (0.2-1.3); Total Protein 4.8 g/dL (6.3-8.2)
[2024-03-31 12:11] LABS: Glucose,Whole Blood 129 mg/dL (70-110)
[2024-03-31 12:39] LABS: Eosinophils # (M) 0.28 k/uL (0-0.7); Lymphocytes # (M) 1.38 k/uL (1.0-4.8); Monocytes # (M) 0.28 k/uL (0-1.0); Neutrophils # (M) 2.67 k/uL (1.3-7.7); Neutrophils % (M) 58 %; Nucleated Red Blood Cells 0 /100 WBC (0-0); Total Cells Counted 100
[2024-03-31 12:41] LABS: Poikilocytosis (M) Present
--- NOTE | 2024-03-31 13:39 | P.PN ---
Subjective Progress Note Date: 03/31/24 patient is a 78-year-old gentleman with past medical history significant for dementia, atrial fibrillation who presented to the ER for nausea and vomiting. Patient was discharged yesterday after being admitted to the hospital for urinary retention and hyperkalemia and was [facility]. Patient started having nausea and vomiting today. There is no complaint of abdominal pain., There is no complaint of fever or chills. Denies any chest pain or shortness of breath. Because of his nausea and vomiting, patient came to the ER Initial lab work done in the ER showed WBC 11.2, hemoglobin 13.2, platelet count 76, sodium 130s, potassium 4.4, BUN 25, creatinine 0.97, glucose 137, medium 1.5 UA done showed large amount of blood, moderate amount of leukocyte Estrace, urine WBC 75 Influenza A not detected Influenza B not detected RSV not detected COVID-19 not detected EKG done in the ER showed heart rate of 124, irregular and rhythm and rate, no ST segment elevation or depression seen, no T-wave inversions seen. Chest x-ray done in the ER showed indeterminate in lucency in the lateral right lung which could reflect overlying skinfold or small pneumothorax. Patient admitted to internal medicine service 03/30. Patient seen and examined. Patient states he is doing much better. Currently in sinus rhythm 03/31. Patient seen and examined states he is doing much better. REVIEW OF SYSTEMS: CONSTITUTIONAL: No fever, no malaise,. CARDIOVASCULAR: No chest pain, no palpitations, no syncope. PULMONARY: No shortness of breath, no cough, GASTROINTESTINAL: No diarrhea, no nausea, no vomiting, no abdominal pain. NEUROLOGICAL: No headaches, no weakness, PHYSICAL EXAMINATION: GENERAL: The patient is alert to self HEENT: Pupils are round and equally reacting to light. EOMI. No scleral icterus. No conjunctival pallor. Normocephalic, atraumatic. No pharyngeal erythema. No thyromegaly. CARDIOVASCULAR: S1 and S2 present. No murmurs, rubs, or gallops. PULMONARY: Chest is clear to auscultation, no wheezing or crackles. ABDOMEN: Soft, nontender, nondistended, normoactive bowel sounds. No palpable organomegaly. MUSCULOSKELETAL: No joint swelling or deformity. EXTREMITIES: No cyanosis, clubbing, or pedal edema. NEUROLOGICAL: Gross neurological examination did not reveal any focal deficits. SKIN: No rashes. Assessment and plan Nausea and vomiting Paroxysmal ordered A-fib with RVR UTI Hypomagnesemia Hypertension Monitor vital signs Monitor CBC Monitor CMP Continue telemetry monitoring Continue IV Rocephin Continue oral Lopressor. Not on anticoagulant because of patient history of dementia and frequent falls ID following Cardiology following PT OT following Labs and medication were reviewed.. Continue same treatment. Continue with symptomatic treatment. Resume home medication. Monitor labs and vitals. DVT and GI prophylaxis. Further recommendations as per clinical course of the patient Dictation was produced using [email or web address] dictation software. please excuse any grammatical, word or spelling errors. Objective - Vital Signs Vital signs: Vital Signs Temp 97.6 F 03/31/24 07:15 Pulse 74 03/31/24 07:15 Resp 16 03/31/24 07:15 BP 134/87 03/31/24 07:15 Pulse Ox 97 03/31/24 07:15 FiO2 Intake & Output 03/30/24 03/31/24 03/31/24 18:59 06:59 18:59 Output Total 800 800 Balance -800 -800 Weight 70 kg Output: Urine 800 800 Other: Voiding Method Indwelling Catheter # Bowel Movements 2 - Labs CBC & Chem 7: 03/31/24 10:55 03/31/24 10:55 Labs: Abnormal Lab Results - Last 24 Hours (Table) 03/30/24 Range/Units 07:06 Hemoglobin A1c 6.4 H (<=6.0) % Microbiology - Last 24 Hours (Table) 03/28/24 22:55 Blood Culture - Preliminary Blood 03/28/24 22:40 Blood Culture - Preliminary Blood 03/29/24 01:54 Urine Culture - Final Urine,Voided
[2024-03-31 13:45] VITALS: BMI 20.9
[2024-03-31 17:03] LABS: Glucose,Whole Blood 124 mg/dL (70-110)
[2024-03-31 20:44] LABS: Glucose,Whole Blood 141 mg/dL (70-110)
--- NOTE | 2024-03-31 21:46 | PN ---
PROGRESS NOTE SUBJECTIVE: This is a 78-year-old gentleman who is admitted to hospital with nausea, vomiting, and poor appetite, has history of atrial fibrillation and had rapid ventricular rate for which Cardiology was consulted and my associate, Dr. Ron had done a consult on him. OBJECTIVE: GENERAL: This morning, he remains in atrial fibrillation with controlled ventricular rate, stable hemodynamically, O2 saturation is good. CHEST: Reveals good air entry bilaterally. HEART: Reveals first and second heart sounds, irregular rhythm. ABDOMEN: Soft. EXTREMITIES: Did not reveal any edema. LABORATORY DATA: Show a hemoglobin of 11.8, potassium is 3.7, creatinine is 0.9. ASSESSMENT: 1. Persistent atrial fibrillation with controlled ventricular rate. 2. Urinary tract infection. PLAN: I will continue current cardiac medications. MMJITENDRAL / IJN: [id number] /
[2024-04-01 07:11] LABS: Glucose,Whole Blood 83 mg/dL (70-110)
[2024-04-01 09:14] LABS: Basophils # (A) 0.02 X 10*3/uL (0.00-0.10); Basophils % (A) 0.4 %; Eosinophils % (A) 5.3 %; HCT 35.9 % (39.6-50.0); HGB 11.6 g/dL (13.0-17.0); Lymphocytes # (A) 2.61 X 10*3/uL (0.90-5.00); Lymphocytes % (A) 46.1 %; MCH 29.7 pg (27.0-32.0); MCHC 32.3 g/dL (32.0-37.0); MCV 92.1 FL (80.0-97.0); Mean Platelet Volume 10.9 FL (9.5-12.2); Monocytes # (A) 0.43 X 10*3/uL (0.20-1.00); Monocytes % (A) 7.6 %; NRBC Per 100 WBC 0 X 10*3/uL (0.00-0.01); Neutrophils # (A) 2.29 X 10*3/uL (1.80-7.70); Neutrophils % (A) 40.4 %; Platelet Count 111 X 10*3/uL (140-440); RDW 16.1 % (11.5-14.5); WBC 5.66 X 10*3/uL (4.50-10.00)
[2024-04-01 10:21] LABS: ALT 16 U/L (10-49); AST 16 U/L (14-35); Albumin 3.1 g/dL (3.8-4.9); Albumin/Globulin Ratio 1.48 Ratio (1.60-3.17); Alkaline Phosphatase 101 U/L (41-126); Blood Urea Nitrogen 13.1 mg/dL (9.0-27.0); Calcium 8.5 mg/dL (8.7-10.3); Carbon Dioxide 26.4 mmol/L (21.6-31.8); Chloride 107 mmol/L (96-109); Globulin 2.1 g/dL (1.6-3.3); Glucose 92 mg/dL (70-110); Potassium 3.8 mmol/L (3.5-5.5); Sodium 141 mmol/L (135-145); Total Bilirubin 0.4 mg/dL (0.3-1.2); Total Protein 5.2 g/dL (6.2-8.2)
[2024-04-01 12:04] LABS: Glucose,Whole Blood 134 mg/dL (70-110)
--- NOTE | 2024-04-01 14:41 | P.PN ---
Subjective Progress Note Date: 04/01/24 patient is a 78-year-old gentleman with past medical history significant for dementia, atrial fibrillation who presented to the ER for nausea and vomiting. Patient was discharged yesterday after being admitted to the hospital for urinary retention and hyperkalemia and was discharged back to the senior care. Patient started having nausea and vomiting today. There is no complaint of abdominal pain., There is no complaint of fever or chills. Denies any chest pain or shortness of breath. Because of his nausea and vomiting, patient came to the ER Initial lab work done in the ER showed WBC 11.2, hemoglobin 13.2, platelet count 76, sodium 130s, potassium 4.4, BUN 25, creatinine 0.97, glucose 137, medium 1.5 UA done showed large amount of blood, moderate amount of leukocyte Estrace, urine WBC 75 Influenza A not detected Influenza B not detected RSV not detected COVID-19 not detected EKG done in the ER showed heart rate of 124, irregular and rhythm and rate, no ST segment elevation or depression seen, no T-wave inversions seen. Chest x-ray done in the ER showed indeterminate in lucency in the lateral right lung which could reflect overlying skinfold or small pneumothorax. Patient admitted to internal medicine service 03/30. Patient seen and examined. Patient states he is doing much better. Currently in sinus rhythm 03/31. Patient seen and examined states he is doing much better. 04/01. Patient seen and examined. Still lethargic. Continues to be afebrile. Vital signs stable REVIEW OF SYSTEMS: CONSTITUTIONAL: As mentioned above CARDIOVASCULAR: No chest pain, no palpitations, no syncope. PULMONARY: No shortness of breath, no cough, GASTROINTESTINAL: No diarrhea, no nausea, no vomiting, no abdominal pain. NEUROLOGICAL: No headaches, no weakness, PHYSICAL EXAMINATION: GENERAL: The patient is alert to self HEENT: Pupils are round and equally reacting to light. EOMI. No scleral icterus. No conjunctival pallor. Normocephalic, atraumatic. No pharyngeal erythema. No thyromegaly. CARDIOVASCULAR: S1 and S2 present. No murmurs, rubs, or gallops. PULMONARY: Chest is clear to auscultation, no wheezing or crackles. ABDOMEN: Soft, nontender, nondistended, normoactive bowel sounds. No palpable organomegaly. MUSCULOSKELETAL: No joint swelling or deformity. EXTREMITIES: No cyanosis, clubbing, or pedal edema. NEUROLOGICAL: Gross neurological examination did not reveal any focal deficits. SKIN: No rashes. Assessment and plan Nausea and vomiting Paroxysmal ordered A-fib with RVR UTI Hypomagnesemia Hypertension Monitor vital signs Monitor CBC Monitor CMP Continue IV Rocephin Continue oral Lopressor. Not on anticoagulant because of patient history of dementia and frequent falls ID following Cardiology signed off. Patient needs to go back to nursing facility, possibly Wednesday Labs and medication were reviewed.. Continue same treatment. Continue with s ymptomatic treatment. Resume home medication. Monitor labs and vitals. DVT and GI prophylaxis. Further recommendations as per clinical course of the patient Dictation was produced using [employer] dictation software. please excuse any grammatical, word or spelling errors. Objective - Vital Signs Vital signs: Vital Signs Temp 97.7 F 04/01/24 13:09 Pulse 77 04/01/24 13:09 Resp 14 04/01/24 13:09 BP 139/92 04/01/24 13:09 Pulse Ox 95 04/01/24 13:09 FiO2 Intake & Output 03/31/24 04/01/24 04/01/24 18:59 06:59 18:59 Intake Total 711 Output Total 1400 1999 Balance -9 -1999 Weight 70 kg 65.5 kg Intake: Oral 711 Output: Urine 1400 1999 Other: Voiding Method Indwelling Catheter Indwelling Catheter Indwelling Catheter # Bowel Movements 1 - Labs CBC & Chem 7: 04/01/24 06:10 04/01/24 06:10 Labs: Abnormal Lab Results - Last 24 Hours (Table) 03/31/24 03/31/24 04/01/24 Range/Units 17:00 20:43 06:10 RBC 3.90 L (4.40-5.60) X 10*6/uL Hgb 11.6 L (13.0-17.0) g/dL Hct 35.9 L (39.6-50.0) % RDW 16.1 H (11.5-14.5) % Plt Count 111 L (140-440) X 10*3/uL POC Glucose (mg/dL) 124 H 141 H (70-110) mg/dL Calcium (8.7-10.3) mg/dL Total Protein (6.2-8.2) g/dL Albumin (3.8-4.9) g/dL Albumin/Globulin Ratio (1.60-3.17) Ratio 04/01/24 04/01/24 Range/Units 06:10 12:03 RBC (4.40-5.60) X 10*6/uL Hgb (13.0-17.0) g/dL Hct (39.6-50.0) % RDW (11.5-14.5) % Plt Count (140-440) X 10*3/uL POC Glucose (mg/dL) 134 H (70-110) mg/dL Calcium 8.5 L (8.7-10.3) mg/dL Total Protein 5.2 L (6.2-8.2) g/dL Albumin 3.1 L (3.8-4.9) g/dL Albumin/Globulin Ratio 1.48 L (1.60-3.17) Ratio Microbiology - Last 24 Hours (Table) 03/28/24 22:55 Blood Culture - Preliminary Blood 03/28/24 22:40 Blood Culture - Preliminary Blood
--- NOTE | 2024-04-01 15:12 | P.PN ---
Subjective Progress Note Date: 03/31/24 Principal diagnosis: Reason for follow-up is catheter associated UTI Patient is a 78-year-old male with a past medical his significant for diabetes mellitus CVA TIA dementia patient has been brought into the hospital for evaluation of vomiting, patient did have a Foster catheter positive UA elevated white count in the presence of mental status changes concerning for c atheter assisted UTI. On today's evaluation that is 03/31/2024, the patient continues to be afebrile, the patient is on room air and breathing comfortably, the Pt denies having any chest pain or cough, the patient denies having any abdominal pain no vomiting or any diarrhea has been reported by the nursing staff. Patient white count is 4.6 creatinine 0.97 Objective - Vital Signs Vital signs: Vital Signs Temp 98.2 F 03/31/24 12:03 Pulse 52 L 03/31/24 12:03 Resp 16 03/31/24 12:03 BP 123/80 03/31/24 12:03 Pulse Ox 98 03/31/24 12:03 FiO2 Intake & Output 03/30/24 03/31/24 03/31/24 18:59 06:59 18:59 Output Total 845 914 8029 Balance -800 -800 -1000 Weight 70 kg 70 kg Output: Urine 745 150 6253 Other: Voiding Method Indwelling Catheter Indwelling Catheter # Bowel Movements 2 1 - Exam GENERAL DESCRIPTION: An elderly male lying in bed in no distress RESPIRATORY SYSTEM: Unlabored breathing , decreased breath sounds at bases HEART: S1 S2 regular rate and rhythm , ABDOMEN: Soft , no tenderness EXTREMITIES: No edema feet - Labs CBC & Chem 7: 04/01/24 06:10 04/01/24 06:10 Labs: Abnormal Lab Results - Last 24 Hours (Table) 03/31/24 03/31/24 03/31/24 Range/Units 10:55 10:55 12:07 RBC 3.73 L (4.30-5.90) m/uL Hgb 11.8 L (13.0-17.5) gm/dL Hct 37.3 L (39.0-53.0) % RDW 15.8 H (11.5-15.5) % Plt Count 105 L (150-450) k/uL Sodium 135 L (137-145) mmol/L Chloride 108 H (98-107) mmol/L Glucose 127 H (74-99) mg/dL POC Glucose (mg/dL) 129 H (70-110) mg/dL Calcium 8.2 L (8.4-10.2) mg/dL Total Protein 4.8 L (6.3-8.2) g/dL Albumin 2.4 L (3.5-5.0) g/dL Microbiology - Last 24 Hours (Table) 03/28/24 22:55 Blood Culture - Preliminary Blood 03/28/24 22:40 Blood Culture - Preliminary Blood 03/29/24 01:54 Urine Culture - Final Urine,Voided Assessment and Plan (1) UTI (urinary tract infection) Current Visit: Yes Status: Acute Code(s): N39.0 - URINARY TRACT INFECTION, SITE NOT SPECIFIED SNOMED Code(s): 79111202 (2) Leukocytosis Current Visit: Yes Status: Acute Code(s): D72.829 - ELEVATED WHITE BLOOD CELL COUNT, UNSPECIFIED SNOMED Code(s): 063081148 Plan: 1patient presented to hospital with acute nausea and vomiting in this patient who did have urinary retention with a chronic indwelling Foster catheter significantly positive UA concerning for catheter associated UTI and no other clear focus for this elevated white count and fever chest x-ray did not show any consolidation evidence of any cellulitis 2- patient did have resolution of his fever white count normalized, 3-patient is currently being treated Rocephin antibiotic medical course closely Dictation was produced using [email or web address] dictation software. please excuse any grammatical, word or spelling errors. Time with Patient: Less than 30
--- NOTE | 2024-04-01 15:13 | P.PN ---
Subjective Progress Note Date: 04/01/24 Principal diagnosis: Reason for follow-up is catheter associated UTI Patient is a 78-year-old male with a past medical his significant for diabetes mellitus CVA TIA dementia patient has been brought into the hospital for evaluation of vomiting, patient did have a Foster catheter positive UA elevated white count in the presence of mental status changes concerning for c atheter assisted UTI. On today's evaluation that is 04/01/2024, patient did not have any fever and d enies any chills, patient is breathing comfortably on room air, patient with no chest pain or cough patient did not have any abdominal pain nausea vomiting or any loose stools. Patient white count is 5.66 creatinine is 1.0 culture have been negative Objective - Vital Signs Vital signs: Vital Signs Temp 97.7 F 04/01/24 13:09 Pulse 77 04/01/24 13:09 Resp 14 04/01/24 13:09 BP 139/92 04/01/24 13:09 Pulse Ox 95 04/01/24 13:09 FiO2 Intake & Output 03/31/24 04/01/24 04/01/24 18:59 06:59 18:59 Intake Total 711 Output Total 1400 1999 Balance -689 -1999 Weight 70 kg 65.5 kg Intake: Oral 711 Output: Urine 1400 1999 Other: Voiding Method Indwelling Catheter Indwelling Catheter Indwelling Catheter # Bowel Movements 1 - Exam GENERAL DESCRIPTION: An elderly male lying in bed in no distress RESPIRATORY SYSTEM: Unlabored breathing , decreased breath sounds at bases HEART: S1 S2 regular rate and rhythm , ABDOMEN: Soft , no tenderness EXTREMITIES: No edema feet - Labs CBC & Chem 7: 04/01/24 06:10 04/01/24 06:10 Labs: Abnormal Lab Results - Last 24 Hours (Table) 03/31/24 03/31/24 04/01/24 Range/Units 17:00 20:43 06:10 RBC 3.90 L (4.40-5.60) X 10*6/uL Hgb 11.6 L (13.0-17.0) g/dL Hct 35.9 L (39.6-50.0) % RDW 16.1 H (11.5-14.5) % Plt Count 111 L (140-440) X 10*3/uL POC Glucose (mg/dL) 124 H 141 H (70-110) mg/dL Calcium (8.7-10.3) mg/dL Total Protein (6.2-8.2) g/dL Albumin (3.8-4.9) g/dL Albumin/Globulin Ratio (1.60-3.17) Ratio 04/01/24 04/01/24 Range/Units 06:10 12:03 RBC (4.40-5.60) X 10*6/uL Hgb (13.0-17.0) g/dL Hct (39.6-50.0) % RDW (11.5-14.5) % Plt Count (140-440) X 10*3/uL POC Glucose (mg/dL) 134 H (70-110) mg/dL Calcium 8.5 L (8.7-10.3) mg/dL Total Protein 5.2 L (6.2-8.2) g/dL Albumin 3.1 L (3.8-4.9) g/dL Albumin/Globulin Ratio 1.48 L (1.60-3.17) Ratio Microbiology - Last 24 Hours (Table) 03/28/24 22:55 Blood Culture - Preliminary Blood 03/28/24 22:40 Blood Culture - Preliminary Blood Assessment and Plan (1) UTI (urinary tract infection) Current Visit: Yes Status: Acute Code(s): N39.0 - URINARY TRACT INFECTION, SITE NOT SPECIFIED SNOMED Code(s): 80630573 (2) Leukocytosis Current Visit: Yes Status: Acute Code(s): D72.829 - ELEVATED WHITE BLOOD CELL COUNT, UNSPECIFIED SNOMED Code(s): 172199452 Plan: 1patient presented to hospital with acute nausea and vomiting in this patient who did have urinary retention with a chronic indwelling Foster catheter significantly positive UA concerning for catheter associated UTI and no other clear focus for this elevated white count and fever chest x-ray did not show any consolidation evidence of any cellulitis 2- patient did have resolution of his fever white count normalized, 3-patient is currently being treated Rocephin to finish 5-day course of therapy Dictation was produced using [employer] software. please excuse any grammatical, word or spelling errors. Time with Patient: Less than 30
[2024-04-01 17:15] LABS: Glucose,Whole Blood 145 mg/dL (70-110)
[2024-04-01 20:30] LABS: Glucose,Whole Blood 142 mg/dL (70-110)
[2024-04-02 07:35] LABS: Glucose,Whole Blood 97 mg/dL (70-110)
[2024-04-02 12:35] LABS: Glucose,Whole Blood 142 mg/dL (70-110)
--- NOTE | 2024-04-02 15:08 | P.PN ---
Subjective Progress Note Date: 04/02/24 patient is a 78-year-old gentleman with past medical history significant for dementia, atrial fibrillation who presented to the ER for nausea and vomiting. Patient was discharged yesterday after being admitted to the hospital for urinary retention and hyperkalemia and was discharged back to the [facility]. Patient started having nausea and vomiting today. There is no complaint of abdominal pain., There is no complaint of fever or chills. Denies any chest pain or shortness of breath. Because of his nausea and vomiting, patient came to the ER Initial lab work done in the ER showed WBC 11.2, hemoglobin 13.2, platelet count 76, sodium 130s, potassium 4.4, BUN 25, creatinine 0.97, glucose 137, medium 1.5 UA done showed large amount of blood, moderate amount of leukocyte Estrace, urine WBC 75 Influenza A not detected Influenza B not detected RSV not detected COVID-19 not detected EKG done in the ER showed heart rate of 124, irregular and rhythm and rate, no ST segment elevation or depression seen, no T-wave inversions seen. Chest x-ray done in the ER showed indeterminate in lucency in the lateral right lung which could reflect overlying skinfold or small pneumothorax. Patient admitted to internal medicine service 03/30. Patient seen and examined. Patient states he is doing much better. Currently in sinus rhythm 03/31. Patient seen and examined states he is doing much better. 04/01. Patient seen and examined. Still lethargic. Continues to be afebrile. Vital signs stable 04/02. Patient seen and examined. No acute issues overnight. REVIEW OF SYSTEMS: CONSTITUTIONAL: As mentioned above CARDIOVASCULAR: No chest pain, no palpitations, no syncope. PULMONARY: No shortness of breath, no cough, GASTROINTESTINAL: No diarrhea, no nausea, no vomiting, no abdominal pain. NEUROLOGICAL: No headaches, no weakness, PHYSICAL EXAMINATION: GENERAL: The patient is alert to self HEENT: Pupils are round and equally reacting to light. EOMI. No scleral icterus. No conjunctival pallor. Normocephalic, atraumatic. No pharyngeal erythema. No thyromegaly. CARDIOVASCULAR: S1 and S2 present. No murmurs, rubs, or gallops. PULMONARY: Chest is clear to auscultation, no wheezing or crackles. ABDOMEN: Soft, nontender, nondistended, normoactive bowel sounds. No palpable organomegaly. MUSCULOSKELETAL: No joint swelling or deformity. EXTREMITIES: No cyanosis, clubbing, or pedal edema. NEUROLOGICAL: Gross neurological examination did not reveal any focal deficits. SKIN: No rashes. Assessment and plan Nausea and vomiting Paroxysmal ordered A-fib with RVR UTI Hypomagnesemia Hypertension Monitor vital signs Monitor CBC Monitor CMP Continue IV Rocephin complete 5 days of antibiotics Continue oral Lopressor. Not on anticoagulant because of patient history of dementia and frequent falls ID following Cardiology signed off. Patient needs to go back to nursing facility, possibly Wednesday, cannot accept the patient over weekend Labs and medication were reviewed.. Continue same treatment. Continue with symptomatic treatment. Resume home medication. Monitor labs and vitals. DVT and GI prophylaxis. Further recommendations as per clinical course of the patient Dictation was produced using [employer] dictation software. please excuse any grammatical, word or spelling errors. Objective - Vital Signs Vital signs: Vital Signs Temp 98.3 F 04/02/24 13:18 Pulse 73 04/02/24 13:18 Resp 17 04/02/24 13:18 BP 120/83 04/02/24 13:18 Pulse Ox 95 04/02/24 13:18 FiO2 Intake & Output 04/01/24 04/02/24 04/02/24 18:59 06:59 18:59 Intake Total 240 Output Total 700 200 Balance -700 -200 240 Weight 73.5 kg Intake: Oral 240 Output: Urine 700 200 Other: Voiding Method Indwelling Catheter Indwelling Catheter Indwelling Catheter # Bowel Movements 1 1 - Labs CBC & Chem 7: 04/01/24 06:10 04/01/24 06:10 Labs: Abnormal Lab Results - Last 24 Hours (Table) 04/01/24 04/01/24 04/02/24 Range/Units 17:14 20:28 12:21 POC Glucose (mg/dL) 145 H 142 H 142 H (70-110) mg/dL
--- NOTE | 2024-04-02 15:58 | P.PN ---
Subjective Progress Note Date: 04/02/24 Principal diagnosis: Reason for follow-up is catheter associated UTI Patient is a 78-year-old male with a past medical his significant for diabetes mellitus CVA TIA dementia patient has been brought into the hospital for evaluation of vomiting, patient did have a Foster catheter positive UA elevated white count in the presence of mental status changes concerning for c atheter assisted UTI. On today's evaluation that is 04/02/2024, Patient is afebrile patient is curre ntly on room air and does not seem to be any distress patient was sleepy but arousable no chest pain no cough no abdominal pain or diarrhea. No new lab has been repeated today culture has been negative Objective - Vital Signs Vital signs: Vital Signs Temp 98.3 F 04/02/24 13:18 Pulse 73 04/02/24 13:18 Resp 17 04/02/24 13:18 BP 120/83 04/02/24 13:18 Pulse Ox 95 04/02/24 13:18 FiO2 Intake & Output 04/01/24 04/02/24 04/02/24 18:59 06:59 18:59 Intake Total 240 Output Total 700 200 Balance -700 -200 240 Weight 73.5 kg Intake: Oral 240 Output: Urine 700 200 Other: Voiding Method Indwelling Catheter Indwelling Catheter Indwelling Catheter # Bowel Movements 1 1 - Exam GENERAL DESCRIPTION: An elderly male lying in bed in no distress RESPIRATORY SYSTEM: Unlabored breathing , decreased breath sounds at bases HEART: S1 S2 regular rate and rhythm , ABDOMEN: Soft , no tenderness EXTREMITIES: No edema feet - Labs CBC & Chem 7: 04/01/24 06:10 04/01/24 06:10 Labs: Abnormal Lab Results - Last 24 Hours (Table) 04/01/24 04/01/24 04/02/24 Range/Units 17:14 20:28 12:21 POC Glucose (mg/dL) 145 H 142 H 142 H (70-110) mg/dL Assessment and Plan (1) UTI (urinary tract infection) Current Visit: Yes Status: Acute Code(s): N39.0 - URINARY TRACT INFECTION, SITE NOT SPECIFIED SNOMED Code(s): 89124685 (2) Leukocytosis Current Visit: Yes Status: Acute Code(s): D72.829 - ELEVATED WHITE BLOOD CELL COUNT, UNSPECIFIED SNOMED Code(s): 019327223 Plan: 1patient presented to hospital with acute nausea and vomiting in this patient who did have urinary retention with a chronic indwelling Foster catheter significantly positive UA concerning for catheter associated UTI and no other clear focus for this elevated white count and fever chest x-ray did not show any consolidation evidence of any cellulitis 2- patient did have resolution of his fever white count normalized, on Rocephin plan is for a 5-day course of therapy total Dictation was produced using [employer] software. please excuse any grammatical, word or spelling errors.
[2024-04-02 17:29] LABS: Glucose,Whole Blood 166 mg/dL (70-110)
[2024-04-02 20:12] LABS: Glucose,Whole Blood 137 mg/dL (70-110)
[2024-04-03 07:35] LABS: Glucose,Whole Blood 112 mg/dL (70-110)
--- NOTE | 2024-04-03 09:07 | PN ---
PROGRESS NOTE A 78-year-old male who is admitted to hospital with nausea, vomiting, and loss of appetite, and we have been consulted because of atrial fibrillation with rapid ventricular rate. The patient remains in AFib. Heart rate is controlled at 60 beats per minute. Rest of his exam is unchanged. The patient is currently on Toprol-XL which he is going to continue. MMLAURI / BLACKN: [id number] /
--- NOTE | 2024-04-03 09:11 | PN ---
PROGRESS NOTE SUBJECTIVE: Jameson is a 78-year-old gentleman with atrial fibrillation, currently on antibiotics, Toprol. OBJECTIVE: VITAL SIGNS: Heart rate is 67 beats per minute, blood pressure is 133/82, respiratory rate 18. CHEST: Reveals diminished air entry at the bases. HEART: Reveals first and second heart sounds. No gallop. EXTREMITIES: Did not reveal any edema. The patient is not on anticoagulant because of risk of falls from his dementia. ASSESSMENT AND PLAN: Persistent atrial fibrillation with controlled ventricular rate. I will continue him on his current medications. MMODL / IJN: [id number] /
--- NOTE | 2024-04-03 09:47 | P.DS ---
Providers Date of admission: 03/29/24 00:02 Expected date of discharge: 04/03/24 Attending physician: Cindy Colin Consults: 03/29/24 14:18 Consult Physician Routine Consulting Provider: Shaun Mccain Consult Reason/Comments: Paroxysmal A-fib with RVR Do you want consulting provider notified?: Yes 03/29/24 14:21 Consult Physician Routine Consulting Provider: Luna Whittaker Consult Reason/Comments: UTI Do you want consulting provider notified?: Yes Primary care physician: Jenn Clark DO Hospital Course: Discharge diagnoses; Nausea and vomiting Paroxysm A-fib with RVR resolved UTI Hypomagnesemia Hypertension Hospital course; patient is a 78-year-old gentleman with past medical history significant for dementia, atrial fibrillation who presented to the ER for nausea and vomiting. Patient was discharged yesterday after being admitted to the hospital for urinary retention and hyperkalemia and was [facility] to the [facility]. Patient started having nausea and vomiting today. There is no complaint of abdominal pain., There is no complaint of fever or chills. Denies any chest pain or shortness of breath. Because of his nausea and vomiting, patient came to the ER Initial lab work done in the ER showed WBC 11.2, hemoglobin 13.2, platelet count 76, sodium 130s, potassium 4.4, BUN 25, creatinine 0.97, glucose 137, medium 1.5 UA done showed large amount of blood, moderate amount of leukocyte Estrace, urine WBC 75 Influenza A not detected Influenza B not detected RSV not detected COVID-19 not detected EKG done in the ER showed heart rate of 124, irregular and rhythm and rate, no ST segment elevation or depression seen, no T-wave inversions seen. Chest x-ray done in the ER showed indeterminate in lucency in the lateral right lung which could reflect overlying skinfold or small pneumothorax. Patient admitted to internal medicine service 03/30. Patient seen and examined. Patient states he is doing much better. Currently in sinus rhythm 03/31. Patient seen and examined states he is doing much better. 04/01. Patient seen and examined. Still lethargic. Continues to be afebrile. Vital signs stable 04/02. Patient seen and examined. No acute issues overnight. 04/03. Patient examined. Patient completed course of IV antibiotics. PHYSICAL EXAMINATION: GENERAL: The patient is alert and oriented x3, not in any acute distress. Well developed, well nourished. HEENT: Pupils are round and equally reacting to light. EOMI. No scleral icterus. No conjunctival pallor. Normocephalic, atraumatic. No pharyngeal erythema. No th yromegaly. CARDIOVASCULAR: S1 and S2 present. No murmurs, rubs, or gallops. PULMONARY: Chest is clear to auscultation, no wheezing or crackles. ABDOMEN: Soft, nontender, nondistended, normoactive bowel sounds. No palpable organomegaly. MUSCULOSKELETAL: No joint swelling or deformity. EXTREMITIES: No cyanosis, clubbing, or pedal edema. NEUROLOGICAL: Gross neurological examination did not reveal any focal deficits. SKIN: No rashes. Dictation was produced using [employer] dictation software. please excuse any grammatical, word or spelling errors. Patient Condition at Discharge: Good Plan - Discharge Summary Discharge Rx Participant: Yes New Discharge Prescriptions: Continue Promethazine HCl 12.5 mg PO Q6H PRN PRN Reason: Nausea And Vomiting Multivitamins, Thera [Multivitamin (formulary)] 1 tab PO DAILY Magnesium Hydroxide [Milk of Magnesia] 400 mg PO Q72H PRN PRN Reason: Constipation Metoprolol Succinate (ER) [Toprol XL] 25 mg PO DAILY Melatonin 5 mg PO HS Tamsulosin [Flomax] 0.4 mg PO HS Folic Acid 0.8 mg PO DAILY Cyanocobalamin [Vitamin B-12] 500 mcg PO DAILY Citalopram Hydrobromide [CeleXA] 20 mg PO DAILY amLODIPine [Norvasc] 5 mg PO DAILY tab Pantoprazole [Protonix] 40 mg PO DAILY Ketotifen 0.025% Ophth Soln [Zaditor] 1 drop BOTH EYES BID Divalproex Sodium [Depakote] 125 mg PO BID Calcium Carbonate/Vitamin D3 [Calcium 600 mg-Vit D3 5 mcg (200 unit)] 1 tab PO DAILY busPIRone HCl [Buspar] 10 mg PO BID Acetaminophen/Diphenhydramine [Tylenol PM 500-25mg] 1 tab PO Q6H PRN PRN Reason: Pain INSULIN ASPART (NovoLOG) [NovoLOG (formulary)] 2 unit SQ ACHS Discharge Medication List Calcium Carbonate/Vitamin D3 [Calcium 600 mg-Vit D3 5 mcg (200 unit)] 1 tab PO DAILY 03/15/24 [History] Citalopram Hydrobromide [CeleXA] 20 mg PO DAILY 03/15/24 [History] Cyanocobalamin [Vitamin B-12] 500 mcg PO DAILY 03/15/24 [History] Divalproex Sodium [Depakote] 125 mg PO BID 03/15/24 [History] Folic Acid 0.8 mg PO DAILY 03/15/24 [History] Ketotifen 0.025% Ophth Soln [Zaditor] 1 drop BOTH EYES BID 03/15/24 [History] Magnesium Hydroxide [Milk of Magnesia] 400 mg PO Q72H PRN 03/15/24 [History] Melatonin 5 mg PO HS 03/15/24 [History] Metoprolol Succinate (ER) [Toprol XL] 25 mg PO DAILY 03/15/24 [History] Multivitamins, Thera [Multivitamin (formulary)] 1 tab PO DAILY 03/15/24 [History] Pantoprazole [Protonix] 40 mg PO DAILY 03/15/24 [History] Promethazine HCl 12.5 mg PO Q6H PRN 03/15/24 [History] Tamsulosin [Flomax] 0.4 mg PO HS 03/15/24 [History] busPIRone HCl [Buspar] 10 mg PO BID 03/15/24 [History] amLODIPine [Norvasc] 5 mg PO DAILY tab 03/28/24 [Rx] Acetaminophen/Diphenhydramine [Tylenol PM 500-25mg] 1 tab PO Q6H PRN 03/29/24 [History] INSULIN ASPART (NovoLOG) [NovoLOG (formulary)] 2 unit SQ ACHS 03/29/24 [History] Follow up Appointment(s)/Referral(s): Jenn Clark DO [Primary Care Provider] - 1-2 days
[2024-04-03 12:27] LABS: Glucose,Whole Blood 128 mg/dL (70-110)
[2024-04-03] MEDS: ASPIRIN 81 MG PO SCH (12:45)
[2024-04-03 12:56] VITALS: BP 128/78; PULSE 65; RESP 16; TEMP 98.1
--- NOTE | 2024-04-03 13:48 | P.PN ---
Subjective HISTORY OF PRESENT ILLNESS: Patient examined this morning at the bedside. Patient currently denies chest pain or pressure. He denies shortness of breath. Vital signs are stable. Heart rate is well-controlled. Patient is pending discharge today back to [facility]. PHYSICAL EXAM: VITAL SIGNS: Reviewed. GENERAL: Well-developed in no acute distress. NECK: Supple. No JVD or thyromegaly LUNGS: Respirations even and unlabored. Lungs essentially clear to auscultation bilaterally. HEART: Irregular rate and rhythm. S1 and S2 heard. EXTREMITIES: Normal range of motion. No clubbing or cyanosis. Peripheral pulses intact. No lower extremity edema ASSESSMENT: Persistent A-fib with RVR, currently rate controlled Nausea and vomiting, resolved History of dementia History of seizures High fall risk PLAN: Patient not anticoagulated on an outpatient basis due to high fall risk Continue additional cardiac medications Patient is stable for discharge back to [facility]CF today We will sign off. Please reconsult if needed. Nurse practitioner note has been reviewed by physician. Signing provider agrees with the documented findings, assessment, and plan of care documented by [employer] as a scribe. Objective - Vital Signs Vital signs: Vital Signs Temp 98.1 F 04/03/24 12:56 Pulse 65 04/03/24 12:56 Resp 16 04/03/24 12:56 BP 128/78 04/03/24 12:56 Pulse Ox 97 04/03/24 12:56 FiO2 Intake & Output 04/02/24 04/03/24 04/03/24 18:59 06:59 18:59 Intake Total 290 30 Output Total 300 Balance 290 -270 Weight 72.5 kg Intake: Intake, IV Titration 50 Amount cefTRIAXone 1 gm In 50 Sodium Chloride 0.9% 50 ml @ 100 mls/hr IVPB Q24HR [facility] Rx#:[id number] Oral 240 30 Output: Urine 300 Other: Voiding Method Indwelling Catheter Indwelling Catheter Indwelling Catheter - Labs CBC & Chem 7: 04/01/24 06:10 04/01/24 06:10 Labs: Abnormal Lab Results - Last 24 Hours (Table) 04/02/24 04/02/24 04/03/24 Range/Units 17:20 20:11 07:23 POC Glucose (mg/dL) 166 H 137 H 112 H (70-110) mg/dL 04/03/24 Range/Units 12:25 POC Glucose (mg/dL) 128 H (70-110) mg/dL Microbiology - Last 24 Hours (Table) 03/28/24 22:55 Blood Culture - Final Blood 03/28/24 22:40 Blood Culture - Final Blood
--- NOTE | 2024-04-05 15:01 | P.PN ---
Subjective Progress Note Date: 04/03/24 Principal diagnosis: Reason for follow-up is catheter associated UTI Patient is a 78-year-old male with a past medical his significant for diabetes mellitus CVA TIA dementia patient has been brought into the hospital for evaluation of vomiting, patient did have a Foster catheter positive UA elevated white count in the presence of mental status changes concerning for c atheter assisted UTI. On today's evaluation that is 04/03/2024, patient has been afebrile, patient is breathing comfortably and is currently on room air, patient denies having any significant cough no chest pain, patient denies nausea vomiting or diarrhea and no abdominal pain. No new lab has been obtained today Objective - Vital Signs Vital signs: Vital Signs Temp 98.2 F 04/03/24 06:58 Pulse 74 04/03/24 06:58 Resp 14 04/03/24 06:58 BP 126/80 04/03/24 06:58 Pulse Ox 95 04/03/24 06:58 FiO2 Intake & Output 04/02/24 04/03/24 04/03/24 18:59 06:59 18:59 Intake Total 290 30 Output Total 300 Balance 290 -270 Weight 72.5 kg Intake: Intake, IV Titration 50 Amount cefTRIAXone 1 gm In 50 Sodium Chloride 0.9% 50 ml @ 100 mls/hr IVPB Q24HR [facility] Rx#:[id number] Oral 240 30 Output: Urine 300 Other: Voiding Method Indwelling Catheter Indwelling Catheter Indwelling Catheter - Exam GENERAL DESCRIPTION: An elderly male lying in bed in no distress RESPIRATORY SYSTEM: Unlabored breathing , decreased breath sounds at bases HEART: S1 S2 regular rate and rhythm , ABDOMEN: Soft , no tenderness EXTREMITIES: No edema feet - Labs CBC & Chem 7: 04/01/24 06:10 04/01/24 06:10 Labs: Abnormal Lab Results - Last 24 Hours (Table) 04/02/24 04/02/24 04/03/24 Range/Units 17:20 20:11 07:23 POC Glucose (mg/dL) 166 H 137 H 112 H (70-110) mg/dL 04/03/24 Range/Units 12:25 POC Glucose (mg/dL) 128 H (70-110) mg/dL Microbiology - Last 24 Hours (Table) 03/28/24 22:55 Blood Culture - Final Blood 12/24/24 22:40 Blood Culture - Final Blood Assessment and Plan (1) UTI (urinary tract infection) Status: Acute Code(s): N39.0 - URINARY TRACT INFECTION, SITE NOT SPECIFIED SNOMED Code(s): 00907412 (2) Leukocytosis Status: Acute Code(s): D72.829 - ELEVATED WHITE BLOOD CELL COUNT, UNSPECIFIED SNOMED Code(s): 872065874 Plan: 1patient presented to hospital with acute nausea and vomiting in this patient who did have urinary retention with a chronic indwelling Foster catheter significantly positive UA concerning for catheter associated UTI and no other clear focus for this elevated white count and fever chest x-ray did not show any consolidation evidence of any cellulitis 2- patient did have resolution of his fever white count normalized, has completed 5-day course of Rocephin should be enough no need for antibiotic on discharge discussed with admitting physician Dictation was produced using [employer] dictation software. please excuse any grammatical, word or spelling errors. Time with Patient: Less than 30
== END 2024-04-03 16:50 ==
LOC: EC 20:13 → INTOOBSV 03-29 00:02 → 3SCARD 03-29 00:02 → 5NMEDONC 03-30 13:05
PROVIDERS: ADMIT Hospitalist; ATTEND Hospitalist
DX: R11.2 Nausea with vomiting, unspecified (principal); R63.0 Anorexia; I48.19 Other persistent atrial fibrillation; E83.42 Hypomagnesemia; N39.0 Urinary tract infection, site not specified; D72.829 Elevated white blood cell count, unspecified; I10 Essential (primary) hypertension; I49.3 Ventricular premature depolarization; E11.9 Type 2 diabetes mellitus without complications; F03.90 Unspecified dementia, unspecified severity, without behavioral disturbance, psychotic disturbance, mood disturbance, and anxiety; Z79.899 Other long term (current) drug therapy; Z91.81 History of falling; Z79.4 Long term (current) use of insulin; Z87.891 Personal history of nicotine dependence
CPT/HCPCS: 96366 ×3; 96376; 96365; 96367 ×2; 96375; 99285; 36415; 93005; 97162; 97166; 80053 ×4; 83605; 83735; 84484; 85025 ×4; 85610; 85730; 81001; 87040; 87086; 83036; 87636; 71046; G0378 ×7; J2405; J0696 ×6; J3475; J0131

== ENCOUNTER 2024-04-26 02:54 | Emergency (ER) | payer MEDICARE ==
[2024-04-26 03:05] VITALS: TEMP 97.6
[2024-04-26] MEDS: LORazepam 2 MG/ML INJ IM STA (03:15)
[2024-04-26] MEDS: OLANZapine 10 MG VIAL IM STA (03:16)
--- NOTE | 2024-04-26 03:20 | ED ---
General Adult HPI - General Chief complaint: Urogenital Stated complaint: Urinary retention Time Seen by Provider: 04/26/24 02:55 Source: EMS Mode of arrival: EMS - History of Present Illness Initial comments: Patient is a 79-year-old gentleman past medical history dementia, indwelling Foster catheter presenting from [facility] after tiring out his Foster catheter. Typically he is agitated baseline and is currently at his baseline mental status. History is limited due to patient's dementia. - Related Data Home Medications Medication Instructions Recorded Confirmed Calcium Carbonate/Vitamin D3 1 tab PO DAILY 03/15/24 03/29/24 [Calcium 600 mg-Vit D3 5 mcg (200 unit)] Citalopram Hydrobromide [CeleXA] 20 mg PO DAILY 03/15/24 03/29/24 Cyanocobalamin [Vitamin B-12] 500 mcg PO DAILY 03/15/24 03/29/24 Divalproex Sodium [Depakote] 125 mg PO BID 03/15/24 03/29/24 Folic Acid 0.8 mg PO DAILY 03/15/24 03/29/24 Ketotifen 0.025% Ophth Soln 1 drop BOTH EYES BID 03/15/24 03/29/24 [Zaditor] Magnesium Hydroxide [Milk of 400 mg PO Q72H PRN 03/15/24 03/29/24 Magnesia] Melatonin 5 mg PO HS 03/15/24 03/29/24 Metoprolol Succinate (ER) [Toprol 25 mg PO DAILY 03/15/24 03/29/24 XL] Multivitamins, Thera [Multivitamin 1 tab PO DAILY 03/15/24 03/29/24 (formulary)] Pantoprazole [Protonix] 40 mg PO DAILY 03/15/24 03/29/24 Promethazine HCl 12.5 mg PO Q6H PRN 03/15/24 03/29/24 Tamsulosin [Flomax] 0.4 mg PO HS 03/15/24 03/29/24 busPIRone HCl [Buspar] 10 mg PO BID 03/15/24 03/29/24 Acetaminophen/Diphenhydramine 1 tab PO Q6H PRN 03/29/24 03/29/24 [Tylenol PM 500-25mg] INSULIN ASPART (NovoLOG) [NovoLOG 2 unit SQ ACHS 03/29/24 03/29/24 (formulary)] Previous Rx's Medication Instructions Recorded amLODIPine [Norvasc] 5 mg PO DAILY tab 03/28/24 Aspirin 81 mg PO DAILY tab 04/03/24 Cephalexin [Keflex] 500 mg PO Q6HR 1 Days #40 cap 04/26/24 Allergies Allergy/AdvReac Type Severity Reaction Status Date / Time No Known Allergies Allergy Verified 04/26/24 03:06 Review of Systems ROS Statement: Those systems with pertinent positive or pertinent negative responses have been documented in the HPI. ROS Other: All systems not noted in ROS Statement are negative. Past Medical History Past Medical History: CVA/TIA, Dementia, Diabetes Mellitus History of Any Multi-Drug Resistant Organisms: None Reported Additional Past Surgical History / Comment(s): surgery as a child Smoking Status: Former smoker Past Alcohol Use History: Rare Past Drug Use History: None Reported Course Vital Signs 04/26/24 02:56 Temperature 97.6 F Pulse Rate 70 Respiratory 16 Rate Blood Pressure 108/80 O2 Sat by Pulse 95 Oximetry Medical Decision Making - Medical Decision Making Was pt. sent in by a medical professional or institution (, PA, DINING ROOM CASHIER, urgent care, hospital, or senior care...) When possible be specific @ -Patient was sent in by the [facility] Did you speak to anyone other than the patient for history (EMS, parent, family, police, friend...)? What history was obtained from this source @ -[No] Did you review nursing and triage notes (agree or disagree)? Why? @ -[I reviewed nursing and triage notes] Were old charts reviewed (outside hosp., previous admission, EMS record, old EKG, old radiological studies, urgent care reports/EKG's, senior care records)? Report findings @ -[Medical records reviewed] Differential Diagnosis (chest pain, altered mental status, abdominal pain women, abdominal pain men, vaginal bleeding, weakness, fever, dyspnea, syncope, headache, dizziness, GI bleed, back pain, seizure, CVA, palpatations, mental health, musculoskeletal)? @ -[not applicable] EKG interpreted by me (3pts min.). @ -[As above] X-rays interpreted by me (1pt min.). @ -[None done] CT interpreted by me (1pt min.). @ -[None done] U/S interpreted by me (1pt. min.). @ -[None done] What testing was considered but not performed or refused? (CT, X-rays, U/S, labs)? Why? @ -[None] What meds were considered but not given or refused? Why? @ -[None] Did you discuss the management of the patient with other professionals (professionals i.e. , PA, DINING ROOM CASHIER, lab, RT, psych nurse, social media campaign manager, social sciences professor, teacher, data officer, pillowcase maker)? Give summary @ -[No] Was smoking cessation discussed for >3mins.? @ -[No] Was critical care preformed (if so, how long)? @ -[No] Were there social determinants of health that impacted care today? How? (Homelessness, low income, unemployed, alcoholism, drug addiction, transportation, low edu. Level, literacy, decrease access to med. care, retirement, rehab)? @ -[No] Was there de-escalation of care discussed even if they declined (Discuss DNR or withdrawal of care, Hospice)? @ -[No] What co-morbidities impacted this encounter? (DM, HTN, Smoking, COPD, CAD, Cancer, CVA, ARF, Chemo, Hep., AIDS, mental health diagnosis, sleep apnea, morbid obesity)? @Dementia Was patient admitted / discharged? Hospital course, mention meds given and rou te, prescriptions, significant lab abnormalities, going to OR and other pertinent info. @ -[hospital course] patient presents today from [facility] after tearing out his Foster catheter. Patient to be likely mental status is typically agitated per report. Patient started swinging at staff shortly after arrival when they attempted to examine him. I arrived at bedside and patient is making statements like "they are full of shit" and fuck you. Is apparently his baseline. On brief assessment of exam there is a small amount of dark red blood new of the urethral meatus, otherwise and was active no active bleeding. Patient immediately started trying to punch staff again. For this reason we will have to do IM medications, will do 10 mg IM Zyprexa 1 mg IM Ativan so that a Foster catheter catheter can be replaced. A bladder scan was obtained with about 3 to 50 cc of urine in his bladder. Foster catheter was able to be inserted. On reassessment patient is sleeping comfortably. Bladder scan shows 40 cc of urine in his bladder, urine is dark yellow Due to pt's unwillingness ot cooperate earlier, suspect he is unlikely to swallow his cephalexin here, will give dose IM rocephin prior to discharge Undiagnosed new problem with uncertain prognosis? @ -[No] Drug Therapy requiring intensive monitoring for toxicity (Heparin, Nitro, Insulin, Cardizem)? @ -[No] Were any procedures done? @ -[No] Diagnosis/symptom? @ -[default] Acute, or Chronic, or Acute on Chronic? @ -[default] Uncomplicated (without systemic symptoms) or Complicated (systemic symptoms)? @ -[default] Side effects of treatment? @ -[No] Exacerbation, Progression, or Severe Exacerbation? @ -[No] Poses a threat to life or bodily function? How? (Chest pain, [place], [place], pneumonia, PE, COPD, DKA, ARF, appy, cholecystitis, CVA, Diverticulitis, Homicidal, Suicidal, threat to staff... and all critical care pts) @ -[No] - Lab Data Lab Results 04/26/24 Range/Units 03:23 Urine Color Yellow Urine Appearance Cloudy (Clear) Urine pH 6.0 (5.0-8.0) Ur Specific [place] 1.013 (1.001-1.035) Urine Protein 1+ H (Negative) Urine Glucose (UA) Negative (Negative) Urine Ketones Negative (Negative) Urine Blood Large H (Negative) Urine Nitrite Negative (Negative) Urine Bilirubin Negative (Negative) Urine Urobilinogen 2.0 (<2.0) mg/dL Ur Leukocyte Esterase Large H (Negative) Urine RBC >182 H (0-5) /hpf Urine WBC >182 H (0-5) /hpf Urine WBC Clumps Few H (None) /hpf Urine Bacteria Rare H (None) /hpf Urine Mucus Rare H (None) /hpf Disposition Clinical Impression: UTI (urinary tract infection) Disposition: HOME SELF-CARE Condition: Good Instructions (If sedation given, give patient instructions): Urinary Tract Infection in Men (ED) Prescriptions: Cephalexin [Keflex] 500 mg PO Q6HR 1 Days #40 cap Referrals: Jenn Clark DO [Primary Care Provider] - 1-2 days
[2024-04-26 04:23] LABS: Appearance,Urine Cloudy (Clear); Bacteria,Urine Rare /hpf; Bilirubin,Urine Negative (Negative); Blood,Urine Large (Negative); Color,Urine Yellow; Glucose,Urine (UA) Negative (Negative); Ketones,Urine Negative (Negative); Leukocyte Esterase,Urine Large (Negative); Mucus,Urine Rare /hpf; Nitrite,Urine Negative (Negative); Protein,Urine 1+ (Negative); RBC,Urine >182 /hpf (0-5); Specific Gravity,Urine 1.013 (1.001-1.035); WBC,Urine >182 /hpf (0-5)
[2024-04-26] MEDS: CEPHALEXIN 500 MG CAP PO STA (05:31)
[2024-04-26] MEDS: cefTRIAXone 1,000 MG VIAL (IM USE) IM STA (06:24)
[2024-04-26 07:36] VITALS: BP 90/65; PULSE 66; RESP 14
== END 2024-04-26 08:16 | disposition home or self-care (01) ==
LOC: EC 02:54
DX: N39.0 Urinary tract infection, site not specified (principal); F03.911 Unspecified dementia, unspecified severity, with agitation; Z87.891 Personal history of nicotine dependence; Z86.73 Personal history of transient ischemic attack (TIA), and cerebral infarction without residual deficits
CPT/HCPCS: 81001; 87086; 99284; 96372 ×3; 51702; J2060; J0696